=== PATIENT | female | born 1965 | race Caucasian/White ===

== ENCOUNTER 2022-01-07 11:34 | Outpatient (REF) | payer OTHER, SELFPAY ==
[2022-01-07 14:40] LABS: Influenza A PCR NEGATIVE (Negative); Influenza B PCR NEGATIVE (Negative); Resp Syncy Virus RNA Qual PCR NEGATIVE (Negative); SARS COV2 PCR INHOUSE NEGATIVE (Negative)
== END 2022-01-07 11:35 | disposition home or self-care (01) ==
LOC: HO.LNP 11:34
PROVIDERS: Visit Provider Nurse Practitioner Family
DX: Z20.822 Contact with and (suspected) exposure to COVID-19 (principal); R06.02 Shortness of breath
CPT/HCPCS: 0241U

== ENCOUNTER 2022-03-09 09:56 | Outpatient (REF) | payer OTHER, SELFPAY ==
--- NOTE | ~2022-03-09 | XR_ITS ---
EXAMINATION: XR WRIST, LEFT CLINICAL INFORMATION: Left wrist pain with contusion. COMPARISON: None TECHNIQUE: PA, lateral, and oblique views of the left wrist. FINDINGS: The bones and soft tissues are normal. No fracture. Alignment is anatomic with normal joint spaces. No erosions or abnormal soft tissue calcifications. XR/XR wrist LT min 3V IMPRESSION: Unremarkable left wrist.
== END 2022-03-09 09:57 | disposition home or self-care (01) ==
LOC: HO.HMGCX 09:56
PROVIDERS: Visit Provider Internal Medicine
DX: S60.212A Contusion of left wrist, initial encounter (principal)
CPT/HCPCS: 73110

== ENCOUNTER 2022-06-15 10:36 | Outpatient (REF) | payer OTHER, SELFPAY ==
--- NOTE | ~2022-06-15 | XR_ITS ---
EXAMINATION: XR chest 2V CLINICAL INFORMATION: Reason for Exam J44.1 - Chronic obstructive pulmonary disease with (acute) exacerbation COMPARISON: No prior chest x-ray available in our system for comparison at the time of this dictation. TECHNIQUE: XR chest 2V Lungs and Abi: Faint density projecting over the left upper lobe between the posterior left fifth and sixth rib, could be a lung nodule versus summation of vascular shadows. Pleura: Normal. Costophrenic angles are sharp. No pneumothorax. Heart: The heart is normal in size. Mediastinum: The mediastinum is within normal limits.. Bones: Skeletal structures included are normal for patient's age. XR/XR chest 2V IMPRESSION: * Faint density projecting over the left upper lobe could be a lung nodule versus summation of vascular shadows. Consider correlation with follow-up low-dose chest CT. * No radiographic evidence of acute infiltrates or failure. (Referring physician staff is being called, by physician staff assistance, to be alerted of the above critical findings and recommendations.) 06/15/2022 11:50 AM
[2022-06-15 15:36] LABS: Influenza A PCR NEGATIVE (Negative); Influenza B PCR NEGATIVE (Negative); Resp Syncy Virus RNA Qual PCR NEGATIVE (Negative); SARS COV2 PCR INHOUSE NEGATIVE (Negative)
== END 2022-06-15 10:37 | disposition home or self-care (01) ==
LOC: HO.HMGCX 10:36
PROVIDERS: PCP Internal Medicine; Visit Provider Physician Assistant
DX: J44.1 Chronic obstructive pulmonary disease with (acute) exacerbation (principal); Z20.822 Contact with and (suspected) exposure to COVID-19
CPT/HCPCS: 0241U; 71046

== ENCOUNTER 2022-10-09 12:02 | Outpatient (AMB) | payer OTHER, SELFPAY ==
--- NOTE | 2022-10-09 12:15 | MHC.OFFWIV ---
Intake Vital Signs 10/09/22 12:18 Weight 142 lb BP 104/56 L Blood Pressure Location Rt brachial Position Sitting Pulse 75 Pulse Oximetry (%) 96 Oxygen Delivery Method Room Air Intake Visit Reasons: EP Diff Breathing/?COPD Intake Note: Triaged pt in waiting room: Pt complaining of worsening SOB and not feeling like she can get a full breath in. Using her emergency inhaler and nebulizer reporting minimal relief. 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 Able to complete full sentences without difficulty. No wheezing heard during conversation. Pt does smell of cigarette. Lips pink, hands warm and dry. O2 sats during conversation ranged between 95 & 97%. HR regular. Denies fever, denies s/s URI. Patient Tobacco Use Status: Current everyday Tobacco user Allergies buprenorphine [From SUBOXONE] Allergy (Severe, Verified 10/09/22 12:44) ANAPHYLAXIS naloxone [From SUBOXONE] Allergy (Severe, Verified 10/09/22 12:44) ANAPHYLAXIS NSAIDS (Non-Steroidal Anti-Inflamma [Nsaids] Allergy (Unknown, Verified 10/09/22 12:44) RASH, ITCHING Do you need a note to return to daycare/school/sports/work: No HPI EP Diff Breathing/?COPD HPI Details Patient presents for a sick visit. Reporting symptoms of sinus congestion, sore throat and difficulty swallowing. Low-grade fever. No family member is sick. No recent travel. Patient reports symptoms of malaise and fatigue. [facility] Social History Patient Tobacco Use Status: Current everyday Tobacco user Physical Exam Vital Signs: Last Vital Signs Pulse 75 10/09/22 12:18 BP 104/56 L 10/09/22 12:18 Pulse Ox 96 10/09/22 12:18 Oxygen Delivery Method Room Air 10/09/22 12:18 Const General: cooperative and healthy appearing Nutritional Appearance: well nourished Orientation/consciousness: patient oriented x3 Limitations: no limitations HEENT Head: Yes normal to inspection Eyes General: appearance normal, both eyes and all related structures Neck Neck: Yes normal visual inspection Chest Chest palpation & inspection: normal palpation of entire chest wall Resp Other: Scattered wheeze bilaterally Effort & Inspection: normal respiratory effort Neuro General: patient oriented x3 Assessment & Plan Assessment & Plan (1) COPD exacerbation: Code(s): J44.1 - Chronic obstructive pulmonary disease with (acute) exacerbation Plan: X-ray images were personally reviewed by me. No infiltrate seen. Albuterol, antibiotic and prednisone called in. If symptoms do not improve to follow-up here. Orders: Orders XR chest 2V Today R05.9 - Cough, unspecified Medications: New azithromycin (Zithromax) take 500 mg today (day 1), then 250 mg for 4 days (days 2-5) PO 6 tabs 0RF prednisone 60 mg (3 x 20 mg) PO DAILY 9 tabs 0RF albuterol sulfate 90 mcg/actuation (Ventolin HFA) 1 inh inhalation QID PRN 8.5 grams 1RF shortness of breath or wheezing Coding Level of Care Code Est Pt Level 4 (94705) Diagnoses COPD exacerbation J44.1
[2022-10-09 12:18] VITALS: BP 104/56; PULSE 75; O2SAT 96
== END 2022-10-09 13:40 | disposition home or self-care (01) ==
PROVIDERS: PCP Internal Medicine; Visit Provider Internal Medicine
DX: J44.1 Chronic obstructive pulmonary disease with (acute) exacerbation (principal)
CPT/HCPCS: 99214

== ENCOUNTER 2022-10-09 13:13 | Outpatient (REF) | payer OTHER, SELFPAY ==
--- NOTE | ~2022-10-09 | XR_ITS ---
EXAMINATION: XR CHEST CLINICAL INFORMATION: Cough COMPARISON: 06/15/2022 TECHNIQUE: 2 views of the chest were obtained. FINDINGS: No significant abnormality is noted involving the heart, lungs, mediastinum, bony thorax or soft tissues. XR/XR chest 2V IMPRESSION: Unremarkable examination.
== END 2022-10-09 13:14 | disposition home or self-care (01) ==
LOC: HO.HMGCX 13:13
PROVIDERS: PCP Internal Medicine; Visit Provider Internal Medicine
DX: R05.9 Cough, unspecified (principal)
CPT/HCPCS: 71046

== ENCOUNTER 2022-10-29 12:17 | Outpatient (AMB) | payer OTHER, SELFPAY ==
--- NOTE | 2022-10-29 12:31 | AM.OFFWIN_ITS ---
Intake Vital Signs 10/29/22 12:31 10/29/22 12:36 Height 5 ft 3.5 in Weight 141 lb BP 124/80 Blood Pressure Location Lt brachial Position Sitting Pulse 63 Pulse Source Pulse Oximeter Temp 98.9 F Temp Source Oral Pulse Oximetry (%) 96 Oxygen Delivery Method Room Air Intake Visit Reasons: EP, SOB, chest tightness [phone] Intake Note: Patient is here for tight chest pain and shortness of breathe for about 3 days. Patient Tobacco Use Status: Current everyday Tobacco user Allergies buprenorphine [From SUBOXONE] Allergy (Severe, Verified 10/29/22 12:31) ANAPHYLAXIS naloxone [From SUBOXONE] Allergy (Severe, Verified 10/29/22 12:31) ANAPHYLAXIS NSAIDS (Non-Steroidal Anti-Inflamma [Nsaids] Allergy (Unknown, Verified 10/29/22 12:31) RASH, ITCHING HPI HPI Comments History of Present Illness Details The patient presents to urgent care for evaluation of chest pain shortness of breath cough times 2-3 days. Patient has an underlying history of COPD and feels tight and wheezy. She has been using her albuterol nebulizer machine as well as her inhaler but does not use a spacer with the inhaler. No fever chills. [facility] Social History Patient Tobacco Use Status: Current everyday Tobacco user Review of Systems Card Denies rapid heart rate, Denies dyspnea and Denies dyspnea on exertion Resp Denies dyspnea and Denies dyspnea on exertion GI Denies dyspepsia and Denies heartburn Musc Denies arthralgias and Denies muscle cramps Neuro Denies focal weakness and Denies Other visual disturbances Physical Exam Vital Signs: Last Vital Signs Temp 98.9 F 10/29/22 12:36 Pulse 63 10/29/22 12:36 BP 124/80 10/29/22 12:36 Pulse Ox 96 10/29/22 12:36 Oxygen Delivery Method Room Air 10/29/22 12:36 Const General: healthy appearing and no acute distress HEENT Mouth: Normal oral and palatal mucosa present Resp Effort & Inspection: normal respiratory effort, able to speak in complete sentences and other (Faint expiratory wheezes bilaterally) Cardio Rate: regular rate Rhythm: regular rhythm Assessment & Plan Assessment & Plan (1) COPD exacerbation: Comment: EKG in office shows normal sinus rhythm at 70 beats per minute no ST T-wave changes to suggest acute ischemia. Code(s): J44.1 - Chronic obstructive pulmonary disease with (acute) exacerbation Plan Symptoms consistent with COPD exacerbation. Patient was instructed to start using her albuterol inhaler with her spacer but in the meantime using nebulizer every 4-6 hours. Will prescribe prednisone as well. Patient well appearing stable for outpatient management and was instructed to return if symptoms worsening. Coding Level of Care Code Est Pt Level 4 (28100) Diagnoses COPD exacerbation J44.1
[2022-10-29 12:36] VITALS: BP 124/80; PULSE 63; TEMP 37.2; O2SAT 96
== END 2022-10-29 13:19 | disposition home or self-care (01) ==
PROVIDERS: PCP Internal Medicine; Visit Provider Emergency Medicine
DX: J44.1 Chronic obstructive pulmonary disease with (acute) exacerbation (principal)
CPT/HCPCS: 99214

== ENCOUNTER 2023-02-06 09:01 | Outpatient (AMB) | payer OTHER, SELFPAY ==
[2023-02-06 09:06] VITALS: BP 104/78; PULSE 80; TEMP 36.8; O2SAT 95; BMI 24.4
--- NOTE | 2023-02-06 09:06 | AM.OFFWIN_ITS ---
Intake Vital Signs 02/06/23 09:06 Height 5 ft 3.5 in Weight 140 lb BMI 24.4 BP 104/78 Blood Pressure Location Lt brachial Position Sitting Pulse 80 Pulse Source Pulse Oximeter Temp 98.3 F Temp Source Oral Pulse Oximetry (%) 95 Oxygen Delivery Method Room Air Intake Visit Reasons: ESt/sob chest tightness (lobby masked) Intake Note: Pt is here today c/o SOB and chest tightness x4days cough and wheezing Patient Tobacco Use Status: Current everyday Tobacco user Allergies buprenorphine [From SUBOXONE] Allergy (Severe, Verified 10/29/22 12:31) ANAPHYLAXIS naloxone [From SUBOXONE] Allergy (Severe, Verified 10/29/22 12:31) ANAPHYLAXIS NSAIDS (Non-Steroidal Anti-Inflamma [Nsaids] Allergy (Unknown, Verified 10/29/22 12:31) RASH, ITCHING Do you need a note to return to daycare/school/sports/work: No HPI HPI Comments History of Present Illness Details This is a 57 year female with past medical history of COPD, not currently oxygen dependent and managed by Dr. Ivey presenting for evaluation of shortness of breath, cough and wheezing that she has had for the past 4 days. Patient also describes a tightness in her chest when she coughs. Patient has been using her nebulizer 4 times daily and her albuterol with imcreased frequency. Patient denies having any fevers, chills, headache, ear pain, sore throat, orthopnea, nausea, vomiting, abdominal pain or back pain. Additionally, patient denies any recent sick contacts. [facility] Social History Patient Tobacco Use Status: Current everyday Tobacco user Review of Systems Const All systems reviewed & are unremarkable except as noted in HPI and below Denies chills, Denies fever(s), Reports malaise and Denies weakness Eyes Reports no additional complaints ENT Reports no additional complaints, Denies otalgia and Denies sore throat Card Reports chest pain ( tightness with cough) Resp Reports no additional complaints, Reports cough, Denies hemoptysis and Reports wheezing Neuro Denies weakness Psych Reports no additional complaints Claus/Lymph Reports no additional complaints Aller/Immun Reports wheezing Physical Exam Vital Signs: Last Vital Signs Temp 98.3 F 02/06/23 09:06 Pulse 80 02/06/23 09:06 BP 104/78 02/06/23 09:06 Pulse Ox 95 02/06/23 09:06 Oxygen Delivery Method Room Air 02/06/23 09:06 BMI result Body Mass Index 24.4 Afebrile, POX 95% on room air. Const General: cooperative and no acute distress; No ill appearing or lethargic Nutritional Appearance: average body habitus Orientation/consciousness: patient oriented x3 and No lethargic Limitations: no limitations HEENT Head: Yes normal to inspection Ears: hearing grossly normal bilaterally, external ears normal, TM's normal bilaterally and EAC's normal General nose exam: Normal external nose present Face and sinus: Yes normal facial exam and No sinus tenderness Mouth: Normal oral and palatal mucosa present Throat: Yes posterior oropharynx normal and No postnasal drainage Eyes Eyelids: Yes eyelids normal Conjunctivae: conjunctivae normal Sclerae: sclerae normal Corneas: corneas normal Pupils: Equal, round and reactive pupils present EOM: EOMs intact bilaterally Neck Lymphatic: no lymphadenopathy noted Resp Effort & Inspection: normal respiratory effort, normal respiratory pattern, no audible wheezes, no cough, respiratory effort not decreased, no respiratory distress and not tachypneic Auscultation: wheezes lower bilaterally and diminished lung sounds bilateral Cardio Rate: regular rate Rhythm: regular rhythm Skin General skin exam: no rashes or lesions noted Neuro General: patient oriented x3 Cranial nerves: Yes Equal, round and reactive pupils present Psych Appearance: grossly normal Mental Status: mental status grossly normal Insight: Good insight present (Psych) Judgement: Good judgement present (Psych) Results Reviewed Results Reviewed: EKG 74 sinus rhythm with PVCs Assessment & Plan Assessment & Plan (1) Upper respiratory infection: Comment: Patient's history coupled with her examination is consistent with an upper respiratory infection which has exacerbated her COPD. Patient is afebrile and in no acute distress. EKG reveals sinus rhythm with no ischemic changes. Code(s): J06.9 - Acute upper respiratory infection, unspecified Plan: Prednisone taper as prescribed and the patient will continue to use her nebulizer and albuterol inhaler as needed with the goal of reduced use over the next 5-7 days. Patient will follow-up with her primary care physician or pul fire eater in 7-10 days if her symptoms are not improving. Orders: Orders AMB EKG-In Office Today R06.02 - Shortness of breath Medications: New prednisone 20 mg orally 60mg x 3 days, 40mg x 3 days, 20mg x 3 days; 18 tabs 0RF Coding Level of Care Code Est Pt Level 4 (12555) Diagnoses Upper respiratory infection J06.9 Time Spent (min) 25
== END 2023-02-06 09:50 | disposition home or self-care (01) ==
PROVIDERS: PCP Internal Medicine; Visit Provider Physician Assistant
DX: J06.9 Acute upper respiratory infection, unspecified (principal)
CPT/HCPCS: 99214

== ENCOUNTER 2023-04-29 10:06 | Outpatient (AMB) | payer OTHER, SELFPAY ==
--- NOTE | 2023-04-29 10:12 | AM.OFFWIN_ITS ---
Intake Vital Signs 04/29/23 10:13 Height 5 ft 3.5 in BP 140/88 H Blood Pressure Location Lt brachial Position Sitting Pulse 81 Pulse Source Pulse Oximeter Temp 98.6 F Temp Source Oral Pulse Oximetry (%) 95 Oxygen Delivery Method Room Air Intake Visit Reasons: EP SOB ~ COPD Intake Note: Pt says she has COPD and is having SOB and chest tightness and she is coughing and she feels like she is choking on her fluids pt says this has been the last 3 days Patient Tobacco Use Status: Current everyday Tobacco user Allergies buprenorphine [From SUBOXONE] Allergy (Severe, Verified 04/29/23 10:15) ANAPHYLAXIS naloxone [From SUBOXONE] Allergy (Severe, Verified 04/29/23 10:15) ANAPHYLAXIS NSAIDS (Non-Steroidal Anti-Inflamma [Nsaids] Allergy (Unknown, Verified 04/29/23 10:15) RASH, ITCHING HPI HPI Comments History of Present Illness Details 57-year-old female with a past medical h istory of COPD presents today complaining of congestion increasing shortness of breath. [facility] Social History Patient Tobacco Use Status: Current everyday Tobacco user Review of Systems Const Reports no additional complaints Eyes Reports no additional complaints ENT Reports nasal congestion Card Reports dyspnea Resp Reports cough and Reports dyspnea GI Reports no additional complaints Physical Exam Const General: ill appearing HEENT Head: Yes normal to inspection, Yes normocephalic and Yes atraumatic Ears: hearing grossly normal bilaterally, external ears normal, TM's normal bilaterally, TM normal on the right, TM normal on the left and EAC's normal General nose exam: Normal external nose present Face and sinus: Yes normal facial exam Throat: Yes posterior oropharynx normal Eyes General: appearance normal, both eyes and all related structures Resp Effort & Inspection: normal respiratory effort Auscultation: wheezes scattered wheezes and left upper Cardio Rate: regular rate Rhythm: regular rhythm Heart sounds: S1 normal heart sound present and S2 normal heart sound present Results Reviewed Results Reviewed: Discuss the results were chest x-ray today that were grossly unremarkable. I will call her after the reading of the radiologist. Assessment & Plan Assessment & Plan (1) Upper respiratory infection: Code(s): J06.9 - Acute upper respiratory infection, unspecified Plan: The patient will be put on antibiotic for asthmatic bronchitis and prednisone Dosepak. She is aware that she comes increasing short of to go to the emergency department. (2) Shortness of breath: Code(s): R06.02 - Shortness of breath (3) Asthmatic bronchitis: Code(s): J45.909 - Unspecified asthma, uncomplicated Plan: See plan Plan See plan Orders: Orders XR chest 2V Today J06.9 - Acute upper respiratory infection, unspecified Medications: New prednisone prednisone 5 mg: take 8 tablets (40 mg) on Day 1; 7 tablets (35 mg) on Day 2; then decrease by 1 tablet every day until finished PO 21 ea 0RF doxycycline hyclate 100 mg PO BID 7 days 14 caps 0RF Coding Level of Care Code Est Pt Level 4 (93900) Diagnoses Upper respiratory infection J06.9 Shortness of breath R06.02 Asthmatic bronchitis J45.909
[2023-04-29 10:13] VITALS: BP 140/88; PULSE 81; TEMP 37; O2SAT 95
== END 2023-04-29 11:03 | disposition home or self-care (01) ==
PROVIDERS: PCP Internal Medicine; Visit Provider Physician Assistant Medical
DX: J06.9 Acute upper respiratory infection, unspecified (principal); R06.02 Shortness of breath; J45.909 Unspecified asthma, uncomplicated
CPT/HCPCS: 99214

== ENCOUNTER 2023-04-29 10:36 | Outpatient (REF) | payer OTHER, SELFPAY ==
--- NOTE | ~2023-04-29 | XR_ITS ---
EXAMINATION: XR CHEST CLINICAL INFORMATION: Acute upper respiratory infection COMPARISON: 10/09/2022 TECHNIQUE: 2 views of the chest were obtained. FINDINGS: No significant abnormality is noted involving the heart, lungs, mediastinum, bony thorax or soft tissues. Surgical clip is noted in the right upper quadrant. XR/XR chest 2V IMPRESSION: Unremarkable examination.
== END 2023-04-29 10:37 | disposition home or self-care (01) ==
LOC: HO.HMGCX 10:36
PROVIDERS: PCP Internal Medicine; Visit Provider Physician Assistant Medical
DX: J06.9 Acute upper respiratory infection, unspecified (principal)
CPT/HCPCS: 71046

== ENCOUNTER 2023-07-19 10:27 | Outpatient (AMB) | payer OTHER, SELFPAY ==
--- OUTSIDE RECORDS SUMMARY | 2023-07-19 10:28 | XMS_ITS | Continuity of Care Document ---
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 Name Role Phone Silverio PRECIADO, Eric Ellis Primary Care Physician [place] [facility] [place]): [place]23 - 07/04/[address] [address]- Discharge Disposition: A-D/C Home Attending Physician: January Fairchild MD Admitting Physician: Victor Manuel Limon MD Referring Physician: Not on Staff, Referring MD Allergies, Adverse Reactions, Alerts Substance Reaction Severity Status Motrin Hives Active lamoTRIgine 1 Persistent Moderate Active 1Rash Immunizations Given and Recorded Vaccine Date Status Refusal Reason tetanus/diphtheria/pertussis, acel(Tdap) 01/13/14 Given influenza virus vaccine, inactivated 1 11/25/12 Gi lilia influenza virus vaccine, inactivated 2 10/17/11 Gi lilia Tet/Diphth/Acel, Pertussis (oldterm) 06/02/11 Give n Pneumococcal Vacc (oldterm) 06/02/11 Given 1Result Comment: [11/25/2012] ORDERRED BY ARI OLSON NP 2Admin Note: Given at work Medications azithromycin 500 mg oral tablet TAKE ONE TABLET BY MOUTH EVERY WEDNESDAY, WEDNESDAY AND WEDNESDAY OF EACH WEEK Start Date: 07/02/23 Status: Ordered colestipol 1 gm oral tablet TAKE 1 TABLET BY MOUTH TWICE A DAY WITH MEALS Start Date: 07/02/23 Status: Ordered EpiPen 2-Mitch 0.3 mg injectable kit = 0.3 mg, Intramuscular, Once, # 1 kit, 0 Refills, Soft Stop, 05/29/20 18:38:00 EDT, [facility], Partial fill upon patient request if the prescription is for a schedule II opioid drug.,160, cm, 05/29/20 16:36:00 EDT, Height, 63.7, kg, 0... Start Date: 05/29/20 Status: Ordered latanoprost 0.005% ophthalmic solution INSTILL 1 DROP INTO LEFT EYE EVERY NIGHT AT BEDTIME Start Date: 07/02/23 Status: Ordered omeprazole 20 mg oral enteric coated capsule See Instructions, TAKE 1 CAPSULE BY MOUTH DAILY FOR 360 DAYS., # 30 tablet, 0 Refills, Maintenance,07/03/23 8:37:00 EDT Start Date: 07/03/23 Status: Ordered ondansetron 4 mg oral tablet 1 tablet = 4 mg, By Mouth, Every 8 hours, PRN Nausea & Vomiting, # 10 tablet, 0 Refills, Maintenance, 07/04/23 9:32:00 EDT, Tablet, [facility], Partial fill upon patient request if the prescription is for a schedule II opioid drug., 162.... Start Date: 07/04/23 Status: Ordered oxyCODONE 5 mg oral tablet 5 mg, 1, tablet, By Mouth, Every 6 hours, PRN, for 3 days, # 12 tablet, Refills 0, Tot. Refills 0, Acute 07/07/23 9:32:00 EDT, Pain , Severe, 07/04/23 9:32:00 EDT, Route to Pharmacy Electronically, [facility], Partial fill upon patient r... Start Date: 07/04/23 Stop Date: 07/07/23 Status: Ordered oxyCODONE 5 mg oral tablet 10 mg, Tablet, By Mouth, Every 6 hours, PRN for Pain , Moderate, Routine, 07/02/23 16:07:00 EDT Start Date: 07/02/23 Stop Date: 07/04/23 Status: Discontinued ProAir HFA 90 mcg/inh inhalation aerosol with adapter 2, puffs, Inhalation, Every 6 hours, PRN, # 8.5 Gm, Refills 0, Maintenance, 07/16/16 23:35:52, Aerosol Start Date: 07/16/16 Status: Ordered Roflumilast 500 mcg oral tablet TAKE 1 TABLET BY MOUTH EVERY DAY Start Date: 07/02/23 Status: Ordered sertraline 100 mg oral tablet TAKE 2 TABLETS BY MOUTH EVERY DAY Start Date: 07/02/23 Status: Ordered traZODone 100 mg oral tablet TAKE 1 TABLET BY MOUTH EVERYDAY AT BEDTIME Start Date: 07/02/23 Status: Ordered Trelegy Ellipta inhalation powder INHALE 1 PUFF BY INHALATION ROUTE EVERY DAY AT THE SAME TIME EACH DAY Start Date: 07/02/23 Status: Ordered Vitamin B-12 1000 mcg oral tablet 1,000 mcg, 1, tablet, By Mouth, Daily, # 30 tablet, Refills 0, Maintenance, 07/16/16 23:37:35 Start Date: 07/16/16 Status: Ordered Problem List Condition Confirmation Course Effective Dates Status Health St atus Informant Abdominal pain Confirmed Active Eczema Confirmed 06/02/11 Active Asthma Confirmed Active History of substance abuse Confirmed Active Tobacco abuse Confirmed Active Results Radiology Reports * Exam Date Time Procedure Performing Provider Status 07/03/23 11:43 AM ERCP Both Ducts Danika Bajwa (Verified) Notes: (ERCP Both Ducts) Reason For Exam: CHOLEDOCHOLITHIASIS RESULT: ERCP Both Ducts ERCP Both Ducts INDICATION: Reason: CHOLEDOCHOLITHIASIS COMPARISONS: None TECHNIQUE: Fluoroscopy support was provided. There was no radiologist in attendance. FLUOROSCOPY TIME: 41.4 seconds EXPOSURE: 3.5087 Total dose area product (Gycm2) TECHNOLOGIST TIME: Not recorded FINDINGS: 6 images were submitted. Please refer to operative note for full details. IMPRESSION: See above. WSN: [id number] Ordering Physician: Charmaine Hayes Dictated By: Uziel Cannon MD Dictated Date/Time: 07/03/23 4:10 pm Reviewed By: Uziel Cannon MD Signed By: Uziel Cannon MD Signed Date/Time: 07/03/23 4:10 pm Transcribed By: JUAN RAMON Transcribed Date/Time: 07/03/23 4:09 pm * Exam Date Time Procedure Performing Provider Status 07/02/23 1:26 AM Chest 2 Views Frontal and Lat Mark Anthony Sexton (Verified) Notes: (Chest 2 Views Frontal and Lat) Reason For Exam: Shortness of Breath RESULT: Chest 2 Views Frontal and Lat Chest 2 Views Frontal and Lat Hx of Present Illness: Pt reports chest pain that started out as indigestion. She reports mid sternal chest pain that radiates to her back bilat, but more pain on the R side. Pt reports couple episodes of vomiting.; Reason: Shortness of Breath; Clinical Question(s): Pneumonia COMPARISON: None. FINDINGS: Single AP upright and lateral views labeled 1:26 AM. LUNGS AND PLEURA: Clear lungs. Normal pulmonary vascularity. No pleural effusion. No pneumothorax. HEART, MEDIASTINUM AND SARI: Heart is normal in size. Normal mediastinal and hilar contour. BONES AND SOFT TISSUES: No acute abnormality. IMPRESSION: No acute abnormality. WSN: [id number] Ordering Physician: Elizabeth Rosen Dictated By: Kobi Graham MD Dictated Date/Time: 07/02/23 7:44 am Reviewed By: Kobi Graham MD Signed By: Kobi Graham MD Signed Date/Time: 07/02/23 7:44 am Transcribed By: JUAN RAMON Transcribed Date/Time: 07/02/23 7:43 am * Exam Date Time Procedure Performing Provider Status 07/02/23 1:[address] Abd/Pelvis W/ IV Contrast Only Elizabeth Thomas; Auth (Verified) Notes: (CT Abd/Pelvis W/ IV Contrast Only) Reason For Exam: LLQ abdominal pain;Other: RESULT: CT Abd/Pelvis W/ IV Contrast Only CT Abd/Pelvis W/ IV Contrast Only Hx of Present Illness: Pt reports chest pain that started out as indigestion. She reports mid sternal chest pain that radiates to her back bilat, but more pain on the R side. Pt report couple episdoes of vomiting; Reason: LLQ abdominal pain TECHNIQUE: Spiral CT through the abdomen and pelvis with IV contrast formatted in 3 planes. 100 cc of Omnipaque 300 was administered intravenously. This study was performed without oral contrast. Weight-based protocol using automatic tube modulation was used to optimize exposure parameters. CTDIvol Body: 13.00 mGy, DLP Body: 682 mGy*cm. COMPARISON: Multiple priors, most recent CT abdomen and pelvis 01/19/2016 FINDINGS: Draw Frame Operator View Findings, Lines and Tubes: None. Visualized Chest: Mild bibasilar atelectasis. No consolidation. No pleural effusion. The heart is normal in size. No pericardial effusion. Diaphragm: Normal. Liver: Normal. Gallbladder: Absent consistent with prior cholecystectomy. Bile ducts: Mild prominence of the intrahepatic bile ducts and common bile duct measuring up to 0.8cm (series 202: Image 53), new from 2016. 0.2 cm punctate hyperdensity is seen in the expected vicinity of the distal common bile duct/sphincter of Oddi, possibly representing obstructing stone (series 202: Image 56). Spleen: Normal. Pancreas: Normal. Adrenal glands: Normal. Kidneys and ureters: No hydronephrosis, stones, or suspicious masses. Bladder: Underdistended, limiting evaluation. Otherwise unremarkable. Reproductive organs: Status post hysterectomy. Otherwise unremarkable. Stomach, small bowel, and large bowel: Unremarkable stomach, small and large bowel. No evidence of bowel obstruction or acute inflammation. Appendix: Not seen, but no evidence of appendicitis. Peritoneum and retroperitoneum: No ascites or pneumoperitoneum. No omental or mesenteric lesions. Lymph nodes: No enlarged lymph nodes. Blood vessels: Moderate atherosclerotic vascular calcification. No aortic aneurysm. No evidence of venous thrombosis. Abdominal and pelvic wall: Unremarkable. Bones: No acute abnormality. Dystrophic calcifications posterior to the left proximal femur. Degenerative changes of the spine. IMPRESSION: Mild prominence of the intrahepatic bile ducts and common bile ducts measuring up to 0.8 cm. 0.2 cmhyperdense focus suspicious for obstructing stone in the region of the distal common bile duct/sphincter of Oddi. If no corresponding clinical symptoms or abnormal LFTs, the biliary dilation could also be secondary to postcholecystectomy state. I have personally reviewed the images and I agree with this report. WSN: [id number] Ordering Physician: Elizabeth Rosen Dictated By: Leticia Louis MD Dictated Date/Time: 07/02/23 7:41 am Reviewed By: Shruti Wilson MD Signed By: Shruti Wilson MD Signed Date/Time: 07/02/23 7:46 am Transcribed By: JUAN RAMON Transcribed Date/Time: 07/02/23 3:45 am Vital Signs Most recent to oldest [Reference Range]: 1 2 3 Height 162.56 cm (07/03/23 9:52 AM) 162.56 cm (07/03/23 4:59 AM) 162.56 cm (07/02/23 8:50 PM) Oxygen Saturation [94-100 %] 95 % (07/04/23 7:00 AM) 96 % (07/04/23 3:00 AM) 93 % *L* (07/03/23 8:00 PM) Pulse Rate [55-90 bpm] 72 bpm (07/04/23 7:00 AM) 74 bpm (07/04/23 3:00 AM) 60 bpm (07/03/23 8:00 PM) Blood Pressure [90-138/55-84 mm Hg] 136/61mm Hg (07/04/23 7:00 AM) 141/63mm Hg *H* (07/04/23 3:00 AM) 139/62mm Hg *H* (07/03/23 8:00 PM) Respiratory Rate [16-30 br/min] 18 br/min (07/04/23 11:39 AM) 18 br/min (07/04/23 10:21 AM) 16 br/min (07/04/23 7:00 AM) Temperature [96.8-100.4 DegF] 98.7 DegF (07/04/23 7:00 AM) 99.1 DegF (07/04/23 3:00 AM) 98.7 DegF (07/03/23 8:00 PM) Liters per Minute 2 L/min (07/03/23 12:30 PM) 4 L/min (07/03/23 11:45 AM) 6 L/min (07/03/23 11:30 AM) Mode of Delivery (Oxygen) Room air (07/04/23 7:00 AM) Room air (07/04/23 3:00 AM) Room air (07/03/23 8:00 PM) Blood pressure sites Arm, left (07/04/23 7:00 AM) Arm, left (07/04/23 3:00 AM) Arm, right (07/03/23 8:00 PM) Temperature Route Oral (07/04/23 7:00 AM) Oral (07/04/23 3:00 AM) Oral (07/03/23 8:00 PM) Social History Social History Type Response Smoking Status Current every day cuate harmon entered on: 12/29/12 Sex RF Guidance for endoscopy of Biliary ducts and Pancreatic duct-- W contrast retrograde * Event Display: GG ERCP Please click on pdf link to open report Consult note * Anisha Cohn DO: PERFORM, MODIFY Event Display: Consult Authored Date: [id number] Patient: ??NORMAN GONZALEZ ? Age:??57 Years?Sex:??Female?:??1965?? Referrring Provider Not on Staff, Referring MD Chief Complaint Coming from home, chest pain half an hour ago radiating to lower back. Started out as abd discomfort and indigestion. Vomitted multiple times per EMS. Pain subsdied from10 to 7 after fentanyl. Hx of panreatitis and COPD Pt reports RUQ pain. Pt denies NUNU Reason for Consultation Choledocholithiasis History of Present Illness This is a 57 yo male with a past medical history significant for Asthma, ccy, ??who presents with aone day history of epigastric??abdominal pain. The pain started after drinking some soda. It was dull in nature and lasted >40 minutes. It was constant, and she is still experiencing the pain. Thepain radiated to the chest and back. She also had 2-3 episodes of nbnb emesis. She states that she h as been getting a similar pain for the past few months which was usually postprandial, and worse with fatty foods. She denies fevers, chills, prior colonoscopy. She did have an EGD >10 years ago for unknown reason. ?? Notably, pt does have a history of pancreatitis and cholecystectomy. ?? On admission, VSS, AST 70, ALT 39, TB <0.2, AP 76. Lipase 87. CT AP showed mild prominence ofthe intrahepatic bile ducts and common bile ducts measuring up to 0.8 cm. 0.2 cm hyperdense focus suspicious for obstructing stone in the region of the distal common bile duct/sphincter of Oddi. If no corresponding clinical symptoms or abnormal LFTs, the biliary dilation could also be secondary to postcholecystectomy state.??Pancreas normal. ?? Review of Systems Per HPI Physical Exam Vitals & Measurements T:??97.4?F?? TMIN:??97.4?F?? TMAX:??99.0?F?? HR:??67??(Peripheral)?? RR:??18?? BP:??131/67?? SpO2:??97%?? General: No acute distress Heart: RRR no MRG Lung: CTA b/l no wheezes or crackles Abdomen: RUQ and epigastric tenderness, non distended Extremities: No pitting edema ?? Assessment/Plan Pt with evidence of stone in the common bile duct confirming choledocholithiasis. Given evidence ofstone, reasonable to pursue ERCP without further imaging. R factor 1.5 indicating cholestatic picture. ?? Recommendations: -??Plan for ERCP 07/02, NPO at midnight ?? Pt seen and discussed with Gato Danielson and ??Freddy ?? Problem List/Past Medical History Ongoing Asthma Eczema Feared complaint without diagnosis History of substance abuse Tobacco abuse Procedure/Surgical History ???KYLIE BSO Medications Inpatient Acetaminophen Tablet, 650 mg, By Mouth, Every 4 hours, PRN Dilaudid Inj, 2 mg= 1 mL, IV Push Slowly, Every 15 minutes, PRN Dilaudid Inj, 1 mg= 1 mL, IV Push Slowly, Every 4 hours, PRN Docusate Sodium Capsule, 100 mg= 1 capsule, By Mouth, 2 times a day, PRN LR 1,000 mL, 1000 mL, IV Infusion Melatonin Tablet, 3 mg, By Mouth, Daily at bedtime, PRN MiraLax Powder, 17 Gm= 1 pack/packet, By Mouth, Daily, PRN NaCL 0.9% Flush, 3 mL, IV Push, Every 8 hours NaCL 0.9% Flush, 3 mL, IV Push, Every 8 hours, PRN Ondansetron Inj, 4 mg, IV Push Slowly, Every 30 minutes, PRN Ondansetron Inj, 4 mg, IV Push, Every 4 hours, PRN Robitussin DM Liquid, 10 mL, By Mouth, Every 4 hours, PRN Senna Tablet, 8.6 mg= 1 tablet, By Mouth, 2 times a day, PRN Simethicone Tablet, 80 mg, Chew, 3 times a day, PRN Zofran Inj, 4 mg, IV Push, Once, PRN Home albuterol CFC free 90 mcg/inh inhalation aerosol, 2 puffs, Inhalation, 4 times a day, PRN Centrum Silver Ultra Women's oral tablet, 1 tablet, By Mouth, Daily EpiPen 2-Mitch 0.3 mg injectable kit, 0.3 mg, Intramuscular, Once potassium gluconate 550 mg oral tablet, 550 mg= 1 tablet, By Mouth, Daily ProAir HFA 90 mcg/inh inhalation aerosol with adapter, 2 puffs, Inhalation, Every 6 hours, PRN SEROquel 50 mg oral tablet, 50 mg= 1 tablet, By Mouth, Daily Vitamin B-12 1000 mcg oral tablet, 1000 mcg= 1 tablet, By Mouth, Daily Vitamin B1 100 mg oral tablet, 100 mg= 1 tablet, By Mouth, Daily Vitamin B6 100 mg oral tablet, See Instructions Allergies lamoTRIgine Motrin??(Hives) Social History Tobacco Use: Current every day smoker. Family History Alcoholism: Negative: Mother, Father, Sister, Sister, Brother and Other. CAD - Coronary artery disease: Negative: Mother, Father, Sister, Sister, Brother and Other. Cancer of breast: Other.Negative: Mother, Father, Sister, Sister and Brother. Cancer of colon: Negative: Mother, Father, Sister, Sister, Brother and Other. Cancer of prostate: Negative: Mother, Father, Sister, Sister, Brother and Other. Diabetes mellitus type II: Mother, Father, Sister and Other.Negative: Sister and Brother. Hyperlipidemia: Negative: Mother, Father, Sister, Sister, Brother and Other. Hypertension: Father.Negative: Mother, Sister, Sister, Brother and Other. RA - Rheumatoid arthritis: Negative: Mother, Father, Sister, Sister, Brother and Other. Stroke: Father.Negative: Mother, Sister, Sister, Brother and Other. Thyroid disease: Negative: Mother, Father, Sister, Sister, Brother and Other. * Charmaine Hayes DO Tri: PERFORM Event Display: Consult Authored Date: GI Attending Note: ?? The patient was seen, examined and discussed with the??fellow. I have personally reviewed all of the labs and imaging. Additionally, I personally created the assessment and plan of care on rounds anddelineated in the above note. Additional comments as below: ?? Patient was seen at bedside and was??reporting a significant amount of??abdominal pain.?? She also reportedly was feeling cold and having chills at bedside with pinpoint pupils.?? Reported nausea??and spitting up.?? Her symptoms do not correlate??with the findings on the CT scan.?? A calcified??distal CBD stone??is very small??and not causing obstructive jaundice as she does have mildly abnormal LFTs.?? Clinical presentation??and abdominal pain??seems to be consistent with more of the withdrawal process.?? Tentatively, she is on our schedule for ERCP tomorrow for stone extraction. ??Risk benefits alternatives were discussed with patient agrees to proceed.?N.p.o. after midnight. ?? Please call with questions or concerns. Thank you for allowing me to participate in this patient's care. ?? Charmaine Hayes, DO [facility] [address] [place] [address], [address] [place] [address] History and physical note * Devorah PRECIADO, January: PERFORM Event Display: History and Physical Hospital Authored Date: Patient: ??NORMAN GONZALEZ ? Age:??57 Years?Sex:??Female?:??1965?? Chief Complaint/Reason for Consultation Abdominal pain History of Present Illness 57-year-old female with past medical history of COPD and asthma, history of bipolar disorder and alcohol use in the past presented to ED with complaint of abdominal pain ?? Patient told me that abdominal pain started last evening, sudden onset, severe, 10/10, associate with nausea and vomiting with no blood in the vomitus.?? Radiating to back and to the chest.?? No change in bowel habits.?? Cramping in nature ?? Patient denies any shortness of breath cough or wheezing.?? No change in bowel habits.?? No dysuria or hematuria.?? No numbness, tingling or focal weakness Review of Systems ROS: All systems reviewed and negative except as in HPI ? Past medical history: History of COPD/asthma,??history of cholecystectomy,??history of depression,??history of GERD ?? Family history:??Noncontributory for gallstone ?? Social history: Positive for smoking. ??Patient is told me that she is not drinking alcohol. ??Denies any drug abuse Objective Vital Signs?? Temperature: 97.4 DegF (07/02/23 07:28:00) Temperature Route: Oral (07/02/23 07:28:00) Pulse Rate: 67 bpm (07/02/23 07:28:00) Respiratory Rate: 20 br/min (07/02/23 11:53:00) Systolic Blood Pressure: 105 mm Hg (07/02/23 11:26:00) Diastolic Blood Pressure: 64 mm Hg (07/02/23 11:26:00) Blood pressure sites: Arm, right (07/02/23 11:26:00) Mean Arterial Pressure: 88 mm Hg (07/02/23 07:28:00) Pulse Pressure: 64 mm Hg (07/02/23 07:28:00) Oxygen Saturation: 97 % (07/02/23 07:27:00) Liters per Minute: 2 L/min (07/02/23 06:42:00) Mode of Delivery (Oxygen): Nasal cannula (07/02/23 06:42:00) Early Warning Score: 2 (07/02/23 11:53:56) ? 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 S1, S2, No gallop, murmur or rub Resp: b/l??decreased air entry, no wheezing or rhales, CTA b/l GI: Soft, epigastric tenderness without rebound, guarding or rigidity, ND, BS +ve EXT: no pedal edema Skin: no rash Neck: supple,?? Eyes: PERRLA, EOMI?? Head: atraumatic, normocephalic ENMT: moist mucus membranes, nares patent with no discharge Musculoskeletal: no joint tenderness, swelling or limitation of movement ?? Assessment/Plan Assessment:??57-year-old female here with abdominal pain??and admitted??with??CBD stone ?? Bile duct stone (K80.50):?? Abnormal LFTs ?? Patient presented with complaint of abdominal pain. CT abdomen as below Mild prominence of the intrahepatic bile ducts and common bile ducts measuring up to 0.8 cm. 0.2 cmhyperdense focus suspicious for obstructing stone in the region of the distal common bile duct/sphincter of Oddi. If no corresponding clinical symptoms or abnormal LFTs, the biliary dilation could also be secondary to postcholecystectomy state.?? History of cholecystectomy Lipase 87 UA with RBC but no UTI Troponin negative Pulmonary embolism unlikely Abdominal examination is benign EKG without any acute change I have discussed with gastroenterology who recommended to start patient on clear liquid diet.?? GI recommended n.p.o. after midnight for ERCP tomorrow Symptomatic management Serial abdominal examination Trend LFTs IV fluids ?? Microscopic hematuria: PCP follow-up ?? History of??asthma/COPD without exacerbation:??Continue patient on azithromycin which she takes every Wednesday and Wednesday.?? DuoNebs, Roflumilast??and Breo Ellipta ?? Depression/anxiety: Sertraline and trazodone ?? GERD: PPI ?? History of cholecystectomy: Cholestyramine ?? Anemia: f/u CBC ?? DVT prophylaxis: SCD ?? CODE STATUS: Full ?? Discussed with patient ?? Discharge Planning:? Histories Allergies Allergies ?(Active and Proposed Allergies Only) lamoTRIgine? (Severity: Persistent Moderate, Onset: Unknown) ?Comments: Rash Motrin? (Severity: Unknown severity, Onset: Unknown) ?Reactions: Hives ? Medications Home Medications Albuterol (ProAir HFA 90 mcg/inh inhalation aerosol with adapter)?2?puff(s)?Inhalation?Every 6 hours?as needed?for wheezing Azithromycin (azithromycin 500 mg oral tablet)?TAKE ONE TABLET BY MOUTH EVERY WEDNESDAY, WEDNESDAY AND WEDNESDAY OF EACH WEEK Colestipol (colestipol 1 gm oral tablet)?TAKE 1 TABLET BY MOUTH TWICE A DAY WITH MEALS Cyanocobalamin (Vitamin B-12 1000 mcg oral tablet)?1,000?Microgram?1?tablet?By Mouth?Daily EPINEPHrine (EpiPen 2-Mitch 0.3 mg injectable kit)?0.3?Milligram?Intramuscular?Once fluticasone/umeclidinium/vilanterol (Trelegy Ellipta inhalation powder)?INHALE 1 PUFF BY INHALATION ROUTE EVERY DAY AT THE SAME TIME EACH DAY Latanoprost Ophthalmic (latanoprost 0.005% ophthalmic solution)?INSTILL 1 DROP INTO LEFT EYE EVERY NIGHT AT BEDTIME Omeprazole (omeprazole 20 mg oral enteric coated capsule)?See Instructions?TAKE 1 CAPSULE BY MOUTH DAILY FOR 360 DAYS. roflumilast (Roflumilast 500 mcg oral tablet)?TAKE 1 TABLET BY MOUTH EVERY DAY Sertraline (sertraline 100 mg oral tablet)?TAKE 2 TABLETS BY MOUTH EVERY DAY Trazodone (traZODone 100 mg oral tablet)?TAKE 1 TABLET BY MOUTH EVERYDAY AT BEDTIME ?? Past medical history: History of COPD/asthma,??history of cholecystectomy,??history of depression,??history of GERD ?? Family history:??Noncontributory for gallstone ?? Social history: Positive for smoking. ??Patient is told me that she is not drinking alcohol. ??Denies any drug abuse Results ? CBC, CBC w/Diff?? CBC?? Differential?? WBC: 10.6 k/mm3 () Abs. Neut:??7.1 k/mm3??High () RBC:??3.51 m/mm3??Low () Abs. Lymph: 2.4 k/mm3 () Hct:??33.5 %??Low () Abs. Davidson: 0.8 k/mm3 () RDW-SD:??47 femtoliters??High () Abs. Eo: 0.3 k/mm3 () Nucleated RBC (Automated): 0 #/100 WBC'S () Abs. Baso: 0.1 k/mm3 () Abs. NRBC: 0 k/mm3 () Neut %: 66.9 % () ?? Lymph %: 22.4 % () ?? Davidson %: 7.3 % () ?? Eos %: 2.6 % () ?? Baso %: 0.5 % () ?? Imm Gran: 0.3 % () ?? Abs. Imm Gran: 0 k/mm3 () ? BMP, Mg, and Phos Anion Gap: 10 () Bicarbonate Level: 24 mmol/L () BUN: 14 mg/dL () Calcium: 8.6 mg/dL () Chloride: 104 mmol/L () Creatinine-Blood: 0.8 mg/dL () Estimated GFR Creatinine: 86 ML/MIN/1.73 M2 () Glucose Level:??109 mg/dL??High () Magnesium: 1.8 mg/dL () Potassium: 3.6 mmol/L () Sodium: 138 mmol/L () ?? Coagulation Profile?? No qualifying data available. ?? LFT Albumin: 3.6 Gm/dL () Alkaline Phosphatase: 76 units/L () ALT (SGPT):??39 units/L??High () AST (SGOT):??70 units/L??High () Bilirubin, Total: <0.2 () ?? Urinalysis Albumin, Urine: 1+ Abnormal (04:31) Appear/Color, Urine: YELLOW (04:31) Bacteria: SLIGHT Abnormal (04:31) Bilirubin, Urine: NEGATIVE (04:31) Glucose, Urine: TRACE Abnormal (04:31) Hemoglobin, Urine: 1+ Abnormal (04:31) Hold Urine Culture: Testing available 48 hours from time of collection. (04:31) Ketones, Urine: NEGATIVE (04:31) Leukocyte, Urine: NEGATIVE (04:31) Mucus: SLIGHT (04:31) Nitrite, Urine: NEGATIVE (04:31) pH, Urine: 6.5 (04:31) RBC's, Urine:??10 /HPF??High (04:31) Specific Morrison, Urine:??>1.050??High (04:31) Squamous Epith: 4 /HPF (04:31) Urobilinogen: NORMAL (04:31) WBC's, Urine: 4 /HPF (04:31) ?? Microbiology ?? COVID-19 (Novel Coronavirus), Rapid PCR?? Completed?? Source: Nasal Body Site: Nose Collected Dt/Tm: 07/02/2023 01:01 Last Updated Dt/Tm: 07/02/2023 05:45 ? Cardiology Labs Nt-Probnp: 103 pg/mL (07/02/23 01:45:00) High Sensitivity Troponin (HSTnT): 7 ng/L (07/02/23 04:21:00) High Sensitivity Troponin (HSTnT): 7 ng/L (07/02/23 01:45:00) ?? Blood Gases?? No qualifying data available. ?? Uric/LDH?? No qualifying data available. ? EKG study * Event Display: ECG 12-Lead Authored Date: Please click on pdf link to open report * Event Display: ECG 12-Lead Authored Date: Ventricular Rate: 66 BPM Atrial Rate: 66 BPM P-R Interval: 130 ms QRS Duration: 72 ms Q-T Interval: 404 ms QTC Calculation(Bazett): 423 ms P Mingo: 50 degrees R Mingo: 21 degrees T Mingo: 45 degrees Normal sinus rhythm Normal ECG When compared with ECG of 02-JUL-2023 00:58, No significant change was found Confirmed by Jadon Knowles ([id number]) on 07/02/2023 8:00:36 AM Fields: Jadon Knowles * Event Display: ECG 12-Lead Authored Date: Please click on pdf link to open report * Event Display: ECG 12-Lead Authored Date: Ventricular Rate: 78 BPM Atrial Rate: 78 BPM P-R Interval: 128 ms QRS Duration: 68 ms Q-T Interval: 384 ms QTC Calculation(Bazett): 437 ms P Mingo: 59 degrees R Mingo: 44 degrees T Mingo: 55 degrees Normal sinus rhythm Cannot rule out Anterior infarct , age undetermined Abnormal ECG When compared with ECG of 29-OCT-2015 22:28, No significant change was found Confirmed by MARCEL THAKUR ([id number]) on 07/02/2023 7:54:19 AM Fields: MARCEL THAKUR [facility] Progress note * Amadou COVINGTON, Aminah: PERFORM, SIGN, VERIFY Event Display: Progress Note Hospital Authored Date: [id number] Patient: NORMAN GONZALEZ Age: 57 years Sex: Female : 1965 Associated Diagnoses: None Author: Amadou COVINGTON, Aminah Findings Problem Related to Alteration in Gastrointestinal : Alteration in Gastrointestinal Func/new 07/04/2023 11:32 EDT Alteration in GI status Related to Other: choledocholitiasis Goals & Outcomes, Gastrointestinal Establish a regular pattern of elimination for pt, Nutritional intake is adequate for metabolic needs Interventions, Gastrointestinal Assess/monitor abdomen for distention, tenderness, Assess/monitor abdominal girth & bowel function, Assess/monitor bowel pattern, bowel sounds, flatus, Assess/monitor number of bowel movements, Assess/monitor color, quantity, quality, consistency of stoo, Assess/monitor pt for nausea, vomiting, Assess/monitor effects of re-hydration, Assess/monitor intake &output, Assess if pt tolerating diet, Collaborate/Consult with Manufacturing Engineer Machining; review recommendations, DVT prophylaxis as ordered, Elevate HOB to facilitate lung expansion, prevent aspiration, Establish toileting schedule for patient, Taking PO: Encourage/monitor intake & swallowing ability, Enteral nutrition;check residuals; HOB >30 degrees, Nasogastric to LWS as ordered;care per Standards of Practice, Provide info on community resources for education, support, Provide/encourage oral care ifNPO, Teach Pt/caregiver diet & give copy of dietary instructions, Teach Pt/caregiver on bowel elimination interventions, Teach Pt/caregiver re: importance of bowel regime, Teach Pt/caregiver re: n utritional intake & dietary restrict, Teach/encourage deep breath & cough exercises, Resolved problem, Interventions no longer in effect BH Goals/Interventions, Gastrointestinal Yes Gastrointestinal, Problem Start 07/03/2023 4:17 Reviewed plan with, Gastrointestinal Patient Patient Progression, Gastrointestinal Plan Initiation . Nursing Data Cardiac Data. : Cardiac Data. 07/04/2023 8:00 EDT Cardiovascular Symptoms None Nail Bed Color, Fingers [place] Nail Bed Color, Toes [place] Clubbing Present No Skin Temperature Upper Extremities Warm Skin Temperature Lower Extremities Warm Heart Rhythm Regular Pacemaker No Capillary Refill < 3 seconds Radial Pulse, Left Normal Radial Pulse, Right Normal equipment monitor phototypesetting Yes Cardiovascular WNL except . Gastrointestinal Data. : Gastrointestinal Data. 07/04/2023 8:00 EDT Gastrointestinal Symptoms None Abdomen Soft, Round Bowel Sounds LUQ Present Bowel Sounds RUQ Present Bowel Sounds LLQ Present Bowel Sounds RLQ Present Last Bowel Movement 07/01/2023 Ostomy present No Gastric tube present No GI WNL except . Genitourinary Data. : Genitourinary Data. 07/03/2023 8:00 EDT WNL . Integumentary Data. : Integumentary Data. 07/04/2023 8:00 EDT Skin Abnormality Other: Slight bruising on right hip post surgery Skin Color Normal for ethnicity Skin Integrity Intact Mucous Membrane Color [place] Mucous Membrane Description Moist Sensory Perception No impairment Sensory Perception No impairment Moisture Rarely moist Activity Walks occasionally Mobility No limitations Nutrition Adequate Friction and Shear No apparent problem Familia Score 21 Nursing Care Plan initiated/updated Yes Integumentary WNL except . Musculoskeletal Data. : Musculoskeletal Data. 07/04/2023 8:00 EDT Musculoskeletal WNL . Neurological Data. : Neurological Data. 07/04/2023 8:00 EDT Tongue Disposition Midline Level of Consciousness Full Consciousness Orientated to person, place, time Person, Place, Time, Event Facial Symmetry Intact Characteristics of Speech Clear and normal Swallowing Difficulty None Pupil description, left Regular Pupil description, right Regular Pupil reaction, left Brisk Pupil reaction, right Brisk Strength LUE 5-Active movement against gravity & full resistance Strength RUE 5-Active movement against gravity & full resistance Strength LLE 5-Active movement against gravity & full resistance Strength RLE 5-Active movement against gravity & full resistance Tone LUE Normal Tone RUE Normal Tone LLE Normal Tone RLE Normal Sensation LUE Intact Sensation RUE Intact Sensation LLE Intact Sensation RLE Intact Movement LUE Spontaneous, To command Movement RUE Spontaneous, To command Movement LLE Spontaneous, To command Movement RLE Spontaneous, To command Gait Steady Tremors None Response Eye Opening Spontaneously Motor Response-Adult Obeys commands Verbal Response-Adult Oriented and converses Beau Coma Score 15 1 - 10 Pain Scale Score 6 Pain Interventions Medicated prior to procedure/movement, Non-pharmacological, Pharmacological, PRNmedication, Repositioning, Rest Pain relief acceptable Yes Neuro WNL except Corneal/Blink Reflex Intact right, Intact left Eyes and Movements Conjugate gaze: Move in same direction at same speed Headache None Memory Intact Swallow - Neuro Normal . Evaluation A&O x4, speech clear, follows commands, PERRL. Denies headache, dizziness, n/t, n/v, changes invision from baseline. Lungs CTA, denies SOB, slight exp. wheeze. +PP, no edema, denies CP. +BS x4, LBM 07/01/2023 pt. denied belly pain, no distension, previously on clear liquid diet. Voids without pain or difficulty. Skin CDI. Bed locked in lowest position, bed alarm on, antislip socks applied, all questions and concerns addressed, call noriega within reach, safety maintained. Patient prepared for discharge, friend to pick her up approx. 11-1130. All questions and concerns addressed, education provided. . * Hanny Soto RN: PERFORM, SIGN, VERIFY Event Display: Progress Note Hospital Authored Date: Patient: NORMAN GONZALEZ Age: 57 years Sex: Female : 1965 Associated Diagnoses: None Author: Hanny Soto RN Findings Narrative/Incidental Pt alert and orietnted x3, c/o abdominal pain and a headache/. Medicated with prn oxycodone and tylenol. Left eye noted to be bloodshot and swollen. Pt also has new scattered bruising to right hip. Continues on LR at 75 ml/hr. Safety checks completed. Hourly rounds maintained. See CIS for full biophysical assessment. . * January Fairchild MD: PERFORM Event Display: Progress Note Hospital Authored Date: Patient: ??NORMAN GONZALEZ ? Age:??57 Years?Sex:??Female?:??1965?? Subjective CC: abdominal pain ?? still has abd pain Plan for ERCP today Review of Systems All systems reviewed and negative except as above Objective Vital Signs?? Temperature: 97.7 DegF (07/03/23 09:52:00) Temperature Route: Temporal (07/03/23 09:52:00) Pulse Rate: 70 bpm (07/03/23 09:52:00) Respiratory Rate:??14 br/min??Low (07/03/23 09:52:00) Systolic Blood Pressure: 132 mm Hg (07/03/23 09:52:00) Diastolic Blood Pressure: 68 mm Hg (07/03/23 09:52:00) Blood pressure sites: Arm, right (07/03/23 09:52:00) Mean Arterial Pressure: 89 mm Hg (07/03/23 09:52:00) Pulse Pressure: 67 mm Hg (07/03/23 08:00:00) Oxygen Saturation:??92 %??Low (07/03/23 09:52:00) Liters per Minute: 2 L/min (07/02/23 17:46:00) Mode of Delivery (Oxygen): Room air (07/03/23 09:52:00) Early Warning Score: 4 (07/03/23 10:19:26) ? Physical Exam ?? MATERIALS ENGINEERING TECHNICIAN: AA0 3, no focal motor or sensory deficit, cranial nerves II to XII intact CVS: S1, S2, No gallop, murmur or rub Resp: b/l good air entry, no wheezing or rhales, CTA b/l GI: Soft, epigastric and right upper quadrant tenderness without rebound, guarding or rigidity, ND,BS +ve EXT: no pedal edema ?? _ Inpatient Medications Medications (24) Active SCHEDULED: (8) Albuterol/Ipratropium Inhalation Bhavani 3mL (Duoneb Inhalation Solution) ??1 vials, BAND Nebulizer, 4 times a day Azithromycin 500 mg Tablet (Azithromycin Tablet) ??500 mg, By Mouth, Every Wednesday, Wednesday and Wednesday Breo Ellipta 200 mcg / 25 mcg Inhaler (Breo Ellipta 200 mcg-25 mcg Inhaler) ??1 puffs, Inhalation, Daily Cholestyramine 4 gm Powder (5.7 gm t.w.) (Cholestyramine Powder) ??4 Gm, By Mouth, 2 times a day NaCl 0.9% Flush 3ml (NaCL 0.9% Flush) ??3 mL, IV Push, Every 8 hours Roflumilast 500 mcg Tablet (roflumilast 500 mcg oral tablet) ??500 mcg, By Mouth, Daily Sertraline 50 mg Tablet (sertraline 50 mg oral tablet) ??200 mg, By Mouth, Daily at bedtime Trazodone 50 mg Tablet (traZODone 50 mg oral tablet) ??100 mg, By Mouth, Daily CONTINUOUS: (1) Lactated Ringers (1000 mL) Cont IV 1,000 mL (LR 1,000 mL) ??1,000 mL, IV Infusion, 75 mL/hr PRN: (15) Acetaminophen 325 mg Tablet (Acetaminophen Tablet) ??650 mg, By Mouth, Every 4 hours Albuterol/Ipratropium Inhalation Bhavani 3mL (Duoneb Inhalation Solution) ??1 vials, BAND Nebulizer, Every 4 hours Dextromethorphan-Guaifenesin 20 mg-200 mg/10 mL Liqu UD (Robitussin DM Liquid) ??10 mL, By Mouth, Every 4 hours Docusate Sodium 100 mg Capsule (Docusate Sodium Capsule) ??100 mg 1 capsule, By Mouth, 2 times a day Lorazepam 2 mg Inj Syringe (LORazepam Inj) ??0.5 mg, IV Push Slowly, Every 6 hours Melatonin 3 mg Tablet (Melatonin Tablet) ??3 mg, By Mouth, Daily at bedtime MorPHINE 2 mg Inj Syringe (MorPHINE Inj) ??2 mg, IV Push Slowly, Every 4 hours NaCl 0.9% Flush 3ml (NaCL 0.9% Flush) ??3 mL, IV Push, Every 8 hours Ondansetron 2mg/mL Inj (2mL Vial) (Ondansetron Inj) ??4 mg, IV Push Slowly, Every 30 minutes Ondansetron 2mg/mL Inj (2mL Vial) (Zofran Inj) ??4 mg, IV Push, Once Ondansetron 2mg/mL Inj (2mL Vial) (Ondansetron Inj) ??4 mg, IV Push, Every 4 hours OxyCODONE 5 mg IR Tablet (oxyCODONE 5 mg oral tablet) ??10 mg, By Mouth, Every 6 hours Polyethylene Glycol 17 Gm Powder (MiraLax Powder) ??17 Gm 1 pack/packet, By Mouth, Daily Senna Tablet ??8.6 mg 1 tablet, By Mouth, 2 times a day Simethicone 80 mg Chewable Tablet (Simethicone Tablet) ??80 mg, Chew, 3 times a day ? Results Recent Labs BLOOD COUNT & DIFF WBC 10.1 k/mm3 ()?? 07/03/2023 07:58 RBC 3.97 m/mm3 (Low)?? 07/03/2023 07:58 Hgb 12.4 Gm/dL ()?? 07/03/2023 07:58 Hct 38.7 % ()?? 07/03/2023 07:58 MCV 97.5 femtoliters ()?? 07/03/2023 07:58 MCH 31.2 pg ()?? 07/03/2023 07:58 MCHC 32.0 g/dL (Low)?? 07/03/2023 07:58 Platelet Count 300 k/mm3 ()?? 07/03/2023 07:58 RDW-SD 47.7 femtoliters (High)?? 07/03/2023 07:58 MPV 9.2 femtoliters (Low)?? 07/03/2023 07:58 Nucleated RBC (Automated) 0.0 #/100 WBC'S ()?? 07/03/2023 07:58 Abs. NRBC 0.0 k/mm3 ()?? 07/03/2023 07:58 Abs. Neut 6.3 k/mm3 ()?? 07/03/2023 07:58 Abs. Lymph 2.8 k/mm3 ()?? 07/03/2023 07:58 Abs. Davidson 0.7 k/mm3 ()?? 07/03/2023 07:58 Abs. Eo 0.2 k/mm3 ()?? 07/03/2023 07:58 Abs. Baso 0.1 k/mm3 ()?? 07/03/2023 07:58 Neut % 62.8 % ()?? 07/03/2023 07:58 Lymph % 28.2 % ()?? 07/03/2023 07:58 Davidson % 6.6 % ()?? 07/03/2023 07:58 Eos % 1.6 % ()?? 07/03/2023 07:58 Baso % 0.5 % ()?? 07/03/2023 07:58 Imm Gran 0.3 % ()?? 07/03/2023 07:58 Abs. Imm Gran 0.0 k/mm3 ()?? 07/03/2023 07:58 ?? CARDIAC Nt-Probnp 103 pg/mL ()?? 07/02/2023 01:45 High Sensitivity Troponin (HSTnT) 7 ng/L ()?? 07/02/2023 04:21 ?? CHEM GENERAL Sodium 142 mmol/L ()?? 07/03/2023 07:58 Potassium 4.0 mmol/L ()?? 07/03/2023 07:58 Chloride 103 mmol/L ()?? 07/03/2023 07:58 Bicarbonate Level 25 mmol/L ()?? 07/03/2023 07:58 Anion Gap 14 ()?? 07/03/2023 07:58 Glucose Level 85 mg/dL ()?? 07/03/2023 07:58 BUN 8 mg/dL ()?? 07/03/2023 07:58 Creatinine-Blood 0.70 mg/dL ()?? 07/03/2023 07:58 Estimated GFR Creatinine 101 ML/MIN/1.73 M2 ()?? 07/03/2023 07:58 Calcium 9.1 mg/dL ()?? 07/03/2023 07:58 Magnesium 1.8 mg/dL ()?? 07/02/2023 01:45 Protein, Total 5.1 Gm/dL (Low)?? 07/02/2023 01:45 Albumin 3.6 Gm/dL ()?? 07/02/2023 01:45 AG Ratio 2.4 ()?? 07/02/2023 01:45 Alkaline Phosphatase 88 units/L ()?? 07/03/2023 07:58 Lipase 94 units/L (High)?? 07/03/2023 07:58 AST (SGOT) 41 units/L (High)?? 07/03/2023 07:58 ALT (SGPT) 50 units/L (High)?? 07/03/2023 07:58 Bilirubin, Total 0.3 mg/dL ()?? 07/03/2023 07:58 Bilirubin, Direct <0.2 mg/dL ()?? 07/03/2023 07:58 Bilirubin, Indirect Direct bilirubin is less than the measureable limit. Therefore, indirect mg/dL ()?? 07/03/2023 07:58 ?? HEME OTHER Hold Blue Top SPECIMEN DISCARDED AFTER 4 HOURS. ()?? 07/02/2023 01:45 ?? UA/URINALYSIS Appear/Color, Urine YELLOW ()?? 07/02/2023 04:31 Specific Morrison, Urine >1.050 (High)?? 07/02/2023 04:31 pH, Urine 6.5 ()?? 07/02/2023 04:31 Albumin, Urine 1+ (Abnormal)?? 07/02/2023 04:31 Glucose, Urine TRACE (Abnormal)?? 07/02/2023 04:31 Ketones, Urine NEGATIVE ()?? 07/02/2023 04:31 Bilirubin, Urine NEGATIVE ()?? 07/02/2023 04:31 Hemoglobin, Urine 1+ (Abnormal)?? 07/02/2023 04:31 Nitrite, Urine NEGATIVE ()?? 07/02/2023 04:31 Leukocyte, Urine NEGATIVE ()?? 07/02/2023 04:31 Urobilinogen NORMAL mg/dL ()?? 07/02/2023 04:31 WBC's, Urine 4 /HPF ()?? 07/02/2023 04:31 RBC's, Urine 10 /HPF (High)?? 07/02/2023 04:31 Bacteria SLIGHT HPF (Abnormal)?? 07/02/2023 04:31 Squamous Epith 4 /HPF ()?? 07/02/2023 04:31 Mucus SLIGHT /LPF ()?? 07/02/2023 04:31 Hold Urine Culture Testing available 48 hours from time of collection. ()?? 07/02/2023 04:31 ?? VIROLOGY COVID-19 by RT-PCR NEGATIVE ()?? 07/02/2023 04:35 ? Assessment/Plan 57-year-old female here with abdominal pain??and admitted??with??CBD stone ?? Bile duct stone (K80.50):?? Abnormal LFTs ?? Patient presented with complaint of abdominal pain. CT abdomen as below Mild prominence of the intrahepatic bile ducts and common bile ducts measuring up to 0.8 cm. 0.2 cmhyperdense focus suspicious for obstructing stone in the region of the distal common bile duct/sphincter of Oddi. If no corresponding clinical symptoms or abnormal LFTs, the biliary dilation could also be secondary to postcholecystectomy state.?? History of cholecystectomy AST, ALT and lipase stable UA with RBC but no UTI Troponin negative Pulmonary embolism unlikely Abdominal examination is benign EKG without any acute change GI on board--ERCP today Symptomatic management Serial abdominal examination Trend LFTs IV fluids ?Chronic, stable and resolved issues: ? Microscopic hematuria: PCP follow-up ?? History of??asthma/COPD without exacerbation:??Continue patient on azithromycin which she takes every Wednesday and Wednesday.?? DuoNebs, Roflumilast??and Breo Ellipta ?? Depression/anxiety: Sertraline and trazodone ?? GERD: PPI ?? History of cholecystectomy: Cholestyramine ?? Anemia: f/u CBC ?? DVT prophylaxis: SCD ?? CODE STATUS: Full ?? Discussed with patient ?? Note * Aminah Tobar RN: PERFORM Event Display: Discharge/Transfer Note Hospital Authored Date: [id number] Nursing Discharge Note Entered On: 07/04/2023 11:39 EDT Performed On: 07/04/2023 11:38 EDT by Aminah Tobar RN Nursing Discharge Note 2 Discharge Time : 07/04/2023 11:38 EDT Discharge Level of Care at Discharge : Home/Senior Care/Foster Care Patient Left Unit Via : Ambulatory Patient Accompanied Off Unit with : Responsible adult DC Instructions Provided & Signed by Pt : Yes Patient Understands D/C Instructions : Yes Verbalized Understanding of D/C Plan By : Family, Responsible adult Patient Instructions Discharge Signed : Yes Discharge Comments : IV removed ,cannula intact. All questions and concerns addessed. No telemetry on patient at time of discharge. Did Pt have Specialty Bed or Wound Vac : No Aminah Tobar RN - 07/04/2023 11:38 EDT * January Fairchild MD: PERFORM Event Display: Discharge/Transfer Note Hospital Authored Date: [id number] Patient: ??NORMAN GONZALEZ ? Age:??57 Years?Sex:??Female?:??1965?? Patient Information Discharge Location: Primary Care Physician: Eric Sawyer MD Admit Date/Time: 07/02/23 06:00 Discharge Disposition Discharge Disposition: ?? Discharge Diagnosis ?? Bile duct stone (K80.50) Dilated cbd, acquired (K83.8) ?? _ Discharge Medications Albuterol (ProAir HFA 90 mcg/inh inhalation aerosol with adapter)?2?puff(s)?Inhalation?Every 6 hours?as needed?for wheezing Azithromycin (azithromycin 500 mg oral tablet)?TAKE ONE TABLET BY MOUTH EVERY WEDNESDAY, WEDNESDAY AND WEDNESDAY OF EACH WEEK Colestipol (colestipol 1 gm oral tablet)?TAKE 1 TABLET BY MOUTH TWICE A DAY WITH MEALS Cyanocobalamin (Vitamin B-12 1000 mcg oral tablet)?1,000?Microgram?1?tablet?By Mouth?Daily EPINEPHrine (EpiPen 2-Mitch 0.3 mg injectable kit)?0.3?Milligram?Intramuscular?Once fluticasone/umeclidinium/vilanterol (Trelegy Ellipta inhalation powder)?INHALE 1 PUFF BY INHALATION ROUTE EVERY DAY AT THE SAME TIME EACH DAY Latanoprost Ophthalmic (latanoprost 0.005% ophthalmic solution)?INSTILL 1 DROP INTO LEFT EYE EVERY NIGHT AT BEDTIME Omeprazole (omeprazole 20 mg oral enteric coated capsule)?See Instructions?TAKE 1 CAPSULE BY MOUTH DAILY FOR 360 DAYS. Ondansetron (ondansetron 4 mg oral tablet)?1?tab(s)?4?Milligram?By Mouth?Every 8 hours?as needed?Nausea & Vomiting Oxycodone (oxyCODONE 5 mg oral tablet)?5?Milligram?1?tablet?By Mouth?Every 6 hours?as needed?for 3?Days?Pain , Severe roflumilast (Roflumilast 500 mcg oral tablet)?TAKE 1 TABLET BY MOUTH EVERY DAY Sertraline (sertraline 100 mg oral tablet)?TAKE 2 TABLETS BY MOUTH EVERY DAY Trazodone (traZODone 100 mg oral tablet)?TAKE 1 TABLET BY MOUTH EVERYDAY AT BEDTIME ? Quality Measures Tobacco Use Treatment:? Medications Started oxycodone zofran ?MassPAT checked and pt given less than 5-7 days supply of narcotics after explaining side effects ? Medications Discontinued none Doses Changed none Allergies Allergies ?(Active and Proposed Allergies Only) lamoTRIgine? (Severity: Persistent Moderate, Onset: Unknown) ?Comments: Rash Motrin? (Severity: Unknown severity, Onset: Unknown) ?Reactions: Hives ? PCP Follow-Up/Heads-Up repeat UA LFTs--abnormal--stable Hospital Course 57-year-old female here with abdominal pain??and admitted??with??CBD stone ?? Bile duct stone (K80.50):?? Abnormal LFTs ?? Patient presented with complaint of abdominal pain. CT abdomen as below Mild prominence of the intrahepatic bile ducts and common bile ducts measuring up to 0.8 cm. 0.2 cmhyperdense focus suspicious for obstructing stone in the region of the distal common bile duct/sphincter of Oddi. If no corresponding clinical symptoms or abnormal LFTs, the biliary dilation could also be secondary to postcholecystectomy state.?? History of cholecystectomy AST, ALT and lipase stable UA with RBC but no UTI Troponin negative Pulmonary embolism unlikely Abdominal examination is benign EKG without any acute change GI on board--ERCP --s/p sludge extraction pt feeling better tolerating diet LFTs stable ? Microscopic hematuria: PCP follow-up for repeat and further eval ? Today feels better. Having stable vitals. CTA BL, S1, S2 no GMR.Abd SOft, mild epigastric TTP but no rebound, guarding or rigidity, BS+ve, AAO3. no pedal edema ?? Objective . Physical Exam Surgical Procedures ERCP with Biopsy 07/03/2023 11:13 Pending Results Hold Lavender Tube (BB) ordered on 07/02/2023 XR C-Arm < 1 Hour ordered on 07/03/2023 Patient Education Titles WebMD [employer]ite Patient Education - Ondansetron Oral Tablet?? Web[employer] Patient Education - Oxycodone Oral Tablet 5 mg?? Follow-Up Appointments Added Follow Up ?Time Frame ?Comments Eric Sawyer?1 to 2 weeks?for the follow upabnormal LFTs--repeat and further evalrepeat UA as your urine showed RBC--Please discuss about need for further eval Prescription has been sent to pharmacy in [facility] Please mantain adeqaute hydration Post Discharge Care Discharge ?07/04/23 9:34:00 EDT Discharge Prescriptions ?ePrescribed, 07/04/23 9:34:00 EDT Home Health Face to Face ^HomeHealthFTF 35??minutes spent on discharge * Aminah Tobar RN: PERFORM Event Display: Patient Education/Instruction Authored Date: [id number] Inpatient Adult Discharge Instructions. [address] [address] Name: MARINBREE BAJWAHAM : 1965?? Visit: 07/02/2023 06:00?? Current Date: 07/04/2023 11:00 ?? Account: [id number]?? Inpatient Adult Discharge Instructions We would like to thank you for allowing us to assist you with your healthcare needs. The following includes patient education materials and information regarding your injury/illness. Our entire staffstrives to provide an excellent experience for our patients and their families. PLEASE ENSURE YOU FOLLOW-UP PER THE INSTRUCTIONS BELOW! ?? YOUR OPINION IS IMPORTANT TO US! Please complete the survey you may receive by mail or email. Your feedback will be used to make improvements to the healthcare experiences of our patients and their families. Surveys are administered by [employer], [place]. ?? If further treatment with your primary care physician or another doctor is recommended, it is important for you to keep the appointment. Call your primary care physician or return to the Emergency Department immediately if your condition worsens, fails to improve, or new symptoms develop. If you need to find a doctor, you can call [facility] for a referral at [phone] or toll free at [phone]) or log in to [email or web address].. ?? [facility], in keeping with [facility] guidance, no longer requires face masks for staff, patientsor visitors in most situations. Similiar to time spent indoors at other locations, there is the chance that you were exposed to repiratory viruses during your time with us (such as flu or COVID-19). If you develop symptoms concerning for a viral respiratory infection, please seek testing (and treatment if indicated) from your medical provider or home test kit. ?? You can view and manage your care through the patient portal or by using a health care [facility] of your choosing. [employer] is a website that allows you to securely view your medical information including your hospital discharge summary, office visit summaries, medications and follow-up visits. You can also request appointments, renew medications, and request access to your medical information using a health care [facility] of your choosing, or just ask a question. You can enroll at [email or web address] or register during your next office visit. You have been discharged from [facility], Patient Care Unit: S3??. If you have any questions regarding these instructions, including results of studies pending, afteryou leave, please call us and we will be happy to assist you 31/08. [facility] Your Care Team Attending Physician January Fairchild MD?? Consulting Providers January Fairchild MD?? Discharging Providers January Fairchild MD Reason for Your Visit Coming from home, chest pain half an hour ago radiating to lower back. Started out as abd discomfort and indigestion. Vomitted multiple times per EMS. Pain subsdied from10 to 7 after fentanyl. Hx of panreatitis and COPD Pt reports RUQ pain. Pt denies NUNU?? Your Diagnosis Feared complaint without diagnosis Abdominal pain Bile duct stone COPD exacerbation Dilated cbd, acquired Tests Performed Below is a partial list of the tests performed during your hospitalization. You may have had other tests and procedures not included in this list. Please discuss all test results with your provider. Alk Phos ALT AST Basic Metabolic Panel Bilirubin Total + Direct CBC w/ Differential Comprehensive Metabolic Panel COVID-19 (Novel Coronavirus), Rapid PCR High??Sensitivity??Troponin T Hold Blue Top Tube HOLD MERCADO TUBE HOLD LAVENDER TUBE Lipase Mg Level ProBNP Troponin T, High Sensitivity Urinalysis w/hold for Urine Culture CT Abd/Pelvis W/ IV Contrast Only XR C-Arm < 1 Hour?-- Results Pending -- XR Chest 2 Views Frontal and Lat XR ERCP Both Ducts You will be contacted within 72 hours with your results. Hold Lavender Tube (BB)?? C-Arm < 1 Hour?? Primary Care Provider Silverio PRECIADO, Eric Ellis? Advance Directive Health Care Proxy on File No Discharge Vitals Temperature: 98.7 DegF Height: 162.56 cm Pulse Rate: 72 bpm ?? Respiratory Rate: 18 br/min ?? Systolic Blood Pressure: 136 mm Hg ?? Diastolic Blood Pressure: 61 mm Hg ?? Oxygen Saturation: 95 % ?? Studies Pending All studies ordered during this hospital stay have been completed unless listed below. Please discuss all pending results with your provider listed above in these instructions. ?? Hold Lavender Tube (BB)?? C-Arm < 1 Hour?? What to do next Instructions From Your Doctor ?? Orders? 07/04/23 9:34:00 EDT?? Prescriptions??, ??07/04/23 9:34:00 EDT?? You Need to Schedule the Following Appointments Follow Up with??Eric Sawyer When:??Within 1 to 2 weeks Why: for the follow up abnormal LFTs--repeat and further eval repeat UA as your urine showed RBC--Please discuss about need for further eval Where: [address] [place] [address]- Business (1) Follow Up with??Prescription has been sent to pharmacy in [facility] Follow Up with??Please mantain adeqaute hydration Discharge Medications NORMAN GONZALEZ :1965 Visit Date:07/02/2023 Medications: Please continue your medications until treatment is completed or stopped by your provider. Medications not listed below should be discontinued. Discuss any questions related to medications with your provider. What How Much When Instructions Next Dose New Ondansetron (ondansetron 4 mg oral tablet) 1 tab(s) Oral Every 8 hours as needed for Nausea & Vomiting Pickup at [facility] 3 Not given today for nausea As needed as prescribed New Oxycodone (oxyCODONE 5 mg oral tablet) 1 tab(s) Oral Every 6 hours as needed for Pain , Severe Duration: 3 Days Pickup at [facility] 3 Last dose given this morning approx. 10am, continue as needed as prescribed. No earlier than today 4pm Changed Albuterol (ProAir HFA 90 mcg/ inh inhalation aerosol with adapter) 2 puff(s) Inhalation Every 6 hours as needed for for wheezing Last dose given today approx. 10am No earlier than today 4pm Unchanged Azithromycin (azithromycin 500 mg oral tablet) TAKE ONE TABLET BY MOUTH EVERY WEDNESDAY, WEDNESDAY AND WEDNESDAY OF EACH WEEK ?? Not given today in hospital (Wednesday) Continue as prescibed as needed. Next due Wednesday, 07/04 Unchanged Colestipol (colestipol 1 gm oral tablet) TAKE 1 TABLET BY MOUTH TWICE A DAY WITH MEALS ?? Gave Choleystyramine at approx. 1030am Today at lunch or dinner Unchanged Cyanocobalamin (Vitamin B-12 1000 mcg oral tablet) 1 tab(s) Oral Daily Not given in hospital setting, continue as prescribed as needed As prescribed as needed Unchanged EPINEPHrine (EpiPen 2-Mitch 0.3 mg injectable kit) 0.3 Milligram Intramuscular Once Not given in hospital setting, continue as prescribed as needed As prescribed as needed Unchanged fluticasone/ umeclidinium/ vilanterol (Trelegy Ellipta inhalation powder) INHALE 1 PUFF BY INHALATION ROUTE EVERY DAY AT THE SAME TIME EACH DAY ?? Not given in hospital setting, continue as prescribed as needed As prescribed as needed Unchanged Latanoprost Ophthalmic (latanoprost 0.005% ophthalmic solution) INSTILL 1 DROP INTO LEFT EYE EVERY NIGHT AT BEDTIME ?? Not given in hospital setting, continue as prescribed as needed As prescribed as needed Unchanged Omeprazole (omeprazole 20 mg oral enteric coated capsule) See instructions TAKE 1 CAPSULE BY MOUTH DAILY FOR 360 DAYS. ?? Not given in hospital setting, continue as prescribed as needed As prescribed as needed Unchanged roflumilast (Roflumilast 500 mcg oral tablet) TAKE 1 TABLET BY MOUTH EVERY DAY ?? Had to med request from pharmacy, not yet given in hospital setting. Today 07/03 Unchanged Sertraline (sertraline 100 mg oral tablet) TAKE 2 TABLETS BY MOUTH EVERY DAY ?? Not yet given today, due at bedtime Today 07/03, 9pm or bedtime Unchanged Trazodone (traZODone 100 mg oral tablet) TAKE 1 TABLET BY MOUTH EVERYDAY AT BEDTIME ?? Not yet given today, due at bedtime Today 07/03, 9pm or bedtime Pharm[facility] Information [facility]: [address], [place] [id number] [phone] ?? What How Much When Comments Stop Taking Multivitamin With Minerals (Centrum Silver Ultra Women'soral tablet) 1 tab(s) Oral Daily Discontinue this medication Stop Taking Potassium Gluconate (potassium gluconate 550 mg oral tablet) 1 tab(s) Oral Daily Discontinue this medication Stop Taking Pyridoxine (Vitamin B6 100 mg oral tablet) See instructions 1 tablet By Mouth Daily ?? Discontinue this medication Stop Taking Quetiapine (SEROquel 50 mg oral tablet) 1 tab(s) Oral Daily Discontinue this medication Stop Taking Thiamine (Vitamin B1 100 mg oral tablet) 1 tab(s) Oral Daily Discontinue this medication Prescription Given During Visit Omeprazole (omeprazole 20 mg oral enteric coated capsule) - , # 30 tablet, 0 Refills, TAKE 1 CAPSULE BY MOUTH DAILY FOR 360 DAYS.?? Ondansetron (ondansetron 4 mg oral tablet) - 1 tablet = 4 mg, By Mouth, Every 8 hours, # 10 tablet,0 Refills, [facility], [address] [place] [address] [phone]?? Oxycodone (oxyCODONE 5 mg oral tablet) - 1 tablet = 5 mg, By Mouth, Every 6 hours, # 12 tablet, 0 Refills, [facility], [address] [place] [address] [phone]?? Laboratory Results Below is a partial list of the most recent Laboratory test results done prior to this discharge. You may have had other tests and procedures not included in this list. Please discuss all test resultswith your provider. Alk Phos (07/04/2023) ???Alkaline Phosphatase - 77 units/L ALT (07/04/2023) ???ALT (SGPT) - 52 units/L AST (07/04/2023) ???AST (SGOT) - 42 units/L Basic Metabolic Panel (07/03/2023) ???Sodium - 142 mmol/L???Potassium - 4.0 mmol/L???Chloride - 103 mmol/L???Bicarbonate Level - 25 mmol/L???Anion Gap - 14???Glucose Level - 85 mg/dL???BUN - 8 mg/dL???Creatinine-Blood - 0.70 mg/dL???Estimated GFR Creatinine - 101 ML/MIN/1.73 M2???Calcium - 9.1 mg/dL Bilirubin Total + Direct (07/04/2023) ? ?Bilirubin, Total - 0.3 mg/dL? ?Bilirubin, Direct - <0.2 mg/dL? ?Bilirubin, Indirect - Direct bilirubin is less than the measureable limit. Therefore, indirect CBC w/ Differential (07/03/2023) ???WBC - 10.1 k/mm3???RBC - 3.97 m/mm3???Hgb - 12.4 Gm/dL???Hct - 38.7 %???MCV - 97.5 femtoliters???MCH - 31.2 pg???MCHC - 32.0 g/dL???Platelet Count - 300 k/mm3???RDW-SD - 47.7 femtoliters???MPV - 9.2 femtoliters???Nucleated RBC (Automated) - 0.0 #/100 WBC'S???Abs. NRBC - 0.0 k/mm3???Abs. Neut - 6.3 k/mm3???Abs. Lymph - 2.8 k/mm3???Abs. Davidson - 0.7 k/mm3???Abs. Eo - 0.2 k/mm3???Abs. Baso - 0.1 k/mm3???Neut % - 62.8 %???Lymph % - 28.2 %???Davidson % - 6.6 %???Eos % - 1.6 %???Baso % - 0.5 %???Imm Gran - 0.3 %???Abs. Imm Gran - 0.0 k/mm3 Comprehensive Metabolic Panel (07/02/2023) ???Sodium - 138 mmol/L???Potassium - 3.6 mmol/L???Chloride - 104 mmol/L???Bicarbonate Level - 24 mmol/L???Anion Gap - 10???Glucose Level - 109 mg/dL???BUN - 14 mg/dL???Creatinine-Blood - 0.80 mg/dL???Estimated GFR Creatinine - 86 ML/MIN/1.73 M2???Calcium - 8.6 mg/dL???Protein, Total - 5.1 Gm/dL???Albumin - 3.6 Gm/dL???AG Ratio - 2.4???Alkaline Phosphatase - 76 units/L???AST (SGOT) - 70 units/L???ALT (SGPT) - 39 units/L? ?Bilirubin, Total - <0.2 mg/dL COVID-19 (Novel Coronavirus), Rapid PCR (07/02/2023) ???COVID-19 by RT-PCR - NEGATIVE High??Sensitivity??Troponin T (07/02/2023) ???High Sensitivity Troponin (HSTnT) - 7 ng/L Hold Blue Top Tube (07/02/2023) ???Hold Blue Top - SPECIMEN DISCARDED AFTER 4 HOURS. HOLD MERCADO TUBE (07/02/2023) ???Hold Mercado Top - SPECIMEN DISCARDED AFTER 1 WEEK HOLD LAVENDER TUBE (07/04/2023) ???Hold Lavender Top - SPECIMEN DISCARDED AFTER 24 HOURS. Lipase (07/03/2023) ???Lipase - 94 units/L Mg Level (07/02/2023) ???Magnesium - 1.8 mg/dL ProBNP (07/02/2023) ???Nt-Probnp - 103 pg/mL Troponin T, High Sensitivity (07/02/2023) ???High Sensitivity Troponin (HSTnT) - 7 ng/L Urinalysis w/hold for Urine Culture (07/02/2023) ? ?Appear/Color, Urine - YELLOW? ?Specific Morrison, Urine - >1.050? ?pH, Urine - 6.5? ?Albumin, Urine - 1+???Glucose, Urine - TRACE???Ketones, Urine - NEGATIVE???Bilirubin, Urine - NEGATIVE???Hemoglobin, Urine - 1+???Nitrite, Urine - NEGATIVE???Leukocyte, Urine - NEGATIVE???Urobilinogen - NORMAL???WBC's, Urine - 4 /HPF???RBC's, Urine - 10 /HPF???Bacteria - SLIGHT???Squamous Epith - 4 /HPF???Mucus - SLIGHT???Hold Urine Culture - Testing available 48 hours from time of collection. Allergies (NKA means No Known Allergies) lamoTRIgine Motrin??(Hives) Problems Active Problems??(6) Abdominal pain?? Asthma?? Eczema?? Feared complaint without diagnosis?? History of substance abuse?? Tobacco abuse?? Education Materials Below is the list of Educational Leaflet Providered with your Discharge Instructions. [employer] Patient Education - Ondansetron Oral Tablet?? [employer]ite Patient Education - Oxycodone Oral Tablet 5 mg?? Valuables and Belongings I fully understand and agree that [facility] accepts no responsibility for all my personal property including clothing, toilet articles, radios, jewelry, dentures, hearing aids, rings, money, or any other property that is in my possession or is brought to me after admission. I understand certain valuables may be placed in a hospital safe for a short period of time. I understand that the hospital is not liable for loss or damage due to accident, fire, or other natural occurrence while said property is in the safe. I accept full responsibility for any personal property that I keep with me, and will not hold the hospital responsible in case of loss or disappearance. I acknowledge that i have been encouraged to send valuables and belongings home. ?? Date for Pt to Sign Valuables/Belongings: 07/02/23 06:37:00 ?? Other Discharge Information ? Pulmonary Rehab Status?? Pulmonary Rehab Discharge Status?? Respiratory Rate: 18 br/min ? Common Emergency Awareness Tips IS IT A STROKE? Act FAST and Check for these signs: FACE Does the face look uneven? ARM Does one arm drift down? SPEECH Does their speech sound strange? TIME Call at any sign of stroke ?? Heart Attack Signs Chest discomfort: Most heart attacks involve discomfort in the center of the chest and lasts more than a few minutes, or goes away and comes back. It can feel like uncomfortable pressure, squeezing, fullness or pain. Discomfort in upper body: Symptoms can include pain or discomfort in one or both arms, back, neck, jaw or stomach. Shortness of breath: With or without discomfort. Other signs: Breaking out in a cold sweat, nausea, or lightheaded. Remember, MINUTES DO MATTER. If you experience any of these heart attack warning signs, call to get immediate medical attention! ?? Smoking can increase your chances of developing chronic health problems and can cause harmful effects to other family members in your house. If you smoke, you are strongly encouraged to quit. Please call [facility] at [phone] or [phone] ([phone]) or log in to [email or web address] for referrals to smoking cessation programs. ?? 996 Suicide & Crisis Lifeline is available 31/08 if you or someone you know needs to find a reason to keep living. By calling 811 you'll be connected to a skilled, trained counselor at a crisis center in your area. INPATIENT DISCHARGE INSTRUCTIONS SIGNATURE NORMAN MACIAS Location:[facility] Registration Date and Time:07/02/2023 06:00 EDT Primary Care Physician: Eric Sawyer MD, Attending Physician: January Fairchild MD, NORMAN BLAKE, have received the above patient education materials/instructions and have verbalized understanding. If ambulance or transport services are being used I further acknowledge being given a choice of service. ?? If you need to contact me, please call me at this number: . Patient/Career Development Counselor Name: Patient/Career Development Counselor Signature: Relationship to Patient: Witness Name/Signature: Date: * January Fairchild MD: SIGN, PERFORM, SIGN, VERIFY Event Display: Patient Education Handout Authored Date: [id number] * January Fairchild MD: PERFORM Event Display: Patient Education Leaflets Authored Date: [id number] Ondansetron Oral Tablet ?? [address] Ondansetron Oral Tablet Brands: Zofran Uses For nausea or vomiting. ?? Instructions Keep the medicine at room temperature. Avoid heat and direct light. Tell your doctor if you have severe or persistent sweating, diarrhea or vomiting. These can increase your risk of a serious side effect. If you are using this medicine regularly, it is important to take each dose of medicine on time. Keep taking the medicine even if you feel well. If you forget to take a dose on time, take it as soon as you remember. If it is almost time for thenext dose, do not take the missed dose. Return to your normal schedule. Do not take 2 doses at one time. Drug interactions can change how medicines work or increase risk for side effects. Tell your healthcare providers about all medicines taken. Include prescription and egbk-osc-bsmrmhm medicines, vitamins, and herbal medicines. Speak with your doctor or pharmacist before starting or stopping any medicine. Tell your doctor if symptoms do not get better or if they get worse. Keep all appointments for medical exams and tests while on this medicine. ?? Cautions Tell your doctor and pharmacist if you ever had an allergic reaction to a medicine. Some patients taking this medicine have experienced serious side effects. Please speak with your doctor to understand the risks and benefits associated with this medicine. Do not use the medication any more than instructed. This medicine may cause dizziness or fainting. Do not stand or sit up quickly. Your ability to stay alert or to react quickly may be impaired by this medicine. Do not drive or operate machinery until you know how this medicine will affect you. Please check with your doctor before drinking alcohol while on this medicine. Call the doctor if there are any signs of confusion or unusual changes in behavior. It is unknown if this medicine passes into breast milk. Ask your doctor before . During , this medicine should be used only when clearly needed. Talk to your doctor about the risks and benefits. Do not take Irwindale's wort while on this medicine. Do not share this medicine with anyone who has not been prescribed this medicine. ?? Side Effects The following is a list of some common side effects from this medicine. Please speak with your doctor about what you should do if you experience these or other side effects. ??? constipation ??? dizziness or drowsiness ??? lack of energy and tiredness ??? headaches ??? lightheadedness Call your doctor or get medical help right away if you notice any of these more serious side effects: ??? agitated feeling or trouble sleeping ??? loss of balance ??? chest pain ??? diarrhea ??? fainting ??? hallucinations (unusual thoughts, seeing or hearing things that are not real) ??? fast, irregular, or slow heartbeat ??? muscle aches, spasms or abnormal movements ??? muscle trembling ??? restlessness ??? stomach pain ??? blurring or changes of vision ??? severe or persistent vomiting A few people may have an allergic reaction to this medicine. Symptoms can include difficulty breathing, skin rash, itching, swelling, or severe dizziness. If you notice any of these symptoms, seek medical help quickly. ?? Extra Please speak with your doctor, nurse, or pharmacist if you have any questions about this medicine. ?? [email or web address] IMPORTANT NOTE: This document tells you briefly how to take your medicine, but it does not tell youall there is to know about it. Your doctor or pharmacist may give you other documents about your medicine. Please talk to them if you have any questions. Always follow their advice. There is a more complete description of this medicine available in [place]. Scan this code on your smartphone or tablet or use the web address below. You can also ask your pharmacist for a printout. If you have any questions, please ask your pharmacist. The display and use of this drug information is subject to Terms of Use. Copyright(c) 2023 [employer]. ?? The Your.MD. All rights reserved. This information is not intended as a substitute for professional medical care. Always follow your healthcare professional's instructions. ?? * January Fairchild MD: PERFORM Event Display: Patient Education Leaflets Authored Date: [id number] Oxycodone Oral Tablet 5 mg ?? [id number] Oxycodone Oral Tablet 5 mg Uses For pain. ?? Instructions Some brands of this medicine should be swallowed whole while other brands may be crushed. Ask your pharmacist how you should take your medicine. This medicine may be taken with or without food. Swallow with a full glass (8 oz) of water unless your doctor gives you different instructions. Store at room temperature away from heat, light, and moisture. Do not keep in the bathroom. Please ask your doctor, nurse, or pharmacist how to discard unused medicines safely. To reduce constipation, eat high fiber foods, drink plenty of water and exercise. Avoid grapefruit and grapefruit juice while on this medicine. Drug interactions can change how medicines work or increase risk for side effects. Tell your healthcare providers about all medicines taken. Include prescription and gnlk-dyq-ysqhvrq medicines, vitamins, and herbal medicines. Speak with your doctor or pharmacist before starting or stopping any medicine. Tell your doctor if symptoms do not get better or if they get worse. Parts of this medicine may come out in the stool. This is normal. ?? Cautions This medicine has an opioid. Opioids help many people but may cause addiction, especially if used for a long time. The addiction risk is higher if you have a substance use disorder (overuse of or addiction to drugs or alcohol). Ask your doctor about the benefits and risks. Ask your doctor or pharmacist if you should have naloxone on hand to treat opioid overdose. Teach your family or household members about the signs of an opioid overdose and how to treat it. If you stop this medicine suddenly after using it for a long time, you may have withdrawal. Your doctor may slowly lower your dose before stopping it. Tell your doctor right away if you have symptoms, such as unusual sweating, watering eyes, runny nose, chills, diarrhea, yawning, muscle aches, restlessness, anxiety, trouble sleeping, or thoughts of suicide. Tell your doctor and pharmacist if you ever had an allergic reaction to a medicine. Do not use the medication any more than instructed. If possible, avoid using with alcohol, marijuana, or other medicines that can cause dizziness or drowsiness. These include allergy/cold products, muscle relaxers, sleep aids, and pain relievers. Your ability to stay alert or to react quickly may be impaired by this medicine. Do not drive or operate machinery until you know how this medicine will affect you. This medicine passes into breast milk. Ask your doctor before . This medicine can hurt a new baby in the womb. If you become while on this medicine, tell your doctor immediately. Your doctor may switch you to a different medicine. This medicine should be used with caution in patients with breathing difficulties. Call your doctor right away if you notice slow or shallow breathing. Do not share this medicine with anyone who has not been prescribed this medicine. Some patients have serious side effects from this medicine. Ask your pharmacist to show you the information from the Food and Drug Administration (FDA) and discuss it with you. ?? Side Effects The following is a list of some common side effects from this medicine. Please speak with your doctor about what you should do if you experience these or other side effects. ??? decreased appetite ??? constipation ??? dizziness or drowsiness ??? lightheadedness ??? nausea and vomiting Call your doctor or get medical help right away if you notice any of these more serious side effects: ??? agitated feeling or trouble sleeping ??? decreased awareness or responsiveness ??? breathing interruption during sleep ??? shallow, irregular breathing ??? changes in memory, mood, or thinking ??? confusion ??? fainting ??? hallucinations (unusual thoughts, seeing or hearing things that are notreal) ??? seizures ??? severe stomach or bowel pain ??? unusual or unexplained tiredness or weakness ??? difficulty or discomfort urinating ??? weight loss A few people may have an allergic reaction to this medicine. Symptoms can include difficulty breathing, skin rash, itching, swelling, or severe dizziness. If you notice any of these symptoms, seek medical help quickly. ?? Extra Please speak with your doctor, nurse, or pharmacist if you have any questions about this medicine. ?? [email or web address] IMPORTANT NOTE: This document tells you briefly how to take your medicine, but it does not tell youall there is to know about it. Your doctor or pharmacist may give you other documents about your medicine. Please talk to them if you have any questions. Always follow their advice. There is a more complete description of this medicine available in Iraqi. Scan this code on your smartphone or tablet or use the web address below. You can also ask your pharmacist for a printout. If you have any questions, please ask your pharmacist. The display and use of this drug information is subject to Terms of Use. Copyright(c) 2023 [employer]. ?? The Your.MD. All rights reserved. This information is not intended as a substitute for professional medical care. Always follow your healthcare professional's instructions. ?? Patient Care team information Care Team Personnel Name: Alyssa Venegas RN Position: [facility] RN Member Role: Primary Care Nurse Name: Trina Fu RN Position: [facility] RN Member Role: Primary Care Nurse Name: Hanny Soto RN Position: [facility] RN Member Role: Primary Care Nurse Name: Wilber Barreto RN Position: [facility] RN Member Role: Primary Care Nurse Name: Jadon Campos RN Position: [facility] RN Member Role: Primary Care Nurse Name: Iveth Garcia RN Position: [facility] RN Member Role: Primary Care Nurse Name: Abbi Darby RN Position: [facility] AMB Nurse Member Role: Primary Care Nurse Name: Karon Hammond Position: [facility] Outreach Member Role: [employer]etime Consulting Physician Name: Eric Sawyer MD Position: Reference Physician Member Role: PCP Address: Address: [address] [place] [id number] Name: Julia Dooley RN Position: [facility] RN Member Role: Primary Care Nurse Care Team Related Persons Name: SHIRIN MAHAN Address: home [address] [place] [address] Name: MARII GONZALEZ Address: home [address] [facility] [place] [address]
--- NOTE | 2023-07-19 11:07 | MHC.OFFWIV ---
Intake Vital Signs 07/19/23 11:08 Height 5 ft 3.5 in Weight 126 lb BMI 22.0 BP 120/80 Blood Pressure Location Lt brachial Position Sitting Pulse 88 Pulse Source Pulse Oximeter Temp 97.4 F Temp Source Temporal Artery Scan Pulse Oximetry (%) 95 Oxygen Delivery Method Room Air Intake Visit Reasons: EP COPD acting up Intake Note: pt is here today for COPD acting up started 4 days ago Patient Tobacco Use Status: Current everyday Tobacco user Allergies buprenorphine [From SUBOXONE] Allergy (Severe, Verified 07/19/23 11:15) ANAPHYLAXIS naloxone [From SUBOXONE] Allergy (Severe, Verified 07/19/23 11:15) ANAPHYLAXIS NSAIDS (Non-Steroidal Anti-Inflamma [Nsaids] Allergy (Unknown, Verified 07/19/23 11:15) RASH, ITCHING Do you need a note to return to daycare/school/sports/work: No HPI HPI Comments History of Present Illness Details Patient presents to the walk-in today for sick visit Complaining of COPD exacerbation for last 4 days Patient using albuterol MDI, nebulizer, Trelegy inhaler, Zithromax 3 times weekly and roflumilast Smoking approximately 7 cigarettes daily, trying to quit Feels that the pollen and seasonal allergies are making her breathing worse [facility] Social History Patient Tobacco Use Status: Current everyday Tobacco user Review of Systems Const All systems reviewed & are unremarkable except as noted in HPI and below Physical Exam Vital Signs: Last Vital Signs Temp 97.4 F 07/19/23 11:08 Pulse 80 07/19/23 11:08 Resp 80 H 07/19/23 11:08 BP 120/80 07/19/23 11:08 Pulse Ox 95 07/19/23 11:08 Oxygen Delivery Method Room Air 07/19/23 11:08 BMI result Body Mass Index 22.0 General: awake, alert, oriented. Answers questions appropriately. Fully engaged in examination. Skin: warm, dry, intact HEENT: TMs intact bilaterally, without erythema or exudate. Posterior pharynx without erythema or exudate. Sclera without icterus or injection. Cardiac: External chest normal in appearance. Respiratory: Diffuse, faint expiratory wheezing throughout Abdomen: without gross distension. Neurological: Oriented to person, place, time and situation. Thought process intact. Psychiatric: Appropriate mood and affect. Good judgment and insight. Assessment & Plan Assessment & Plan (1) COPD exacerbation: Code(s): J44.1 - Chronic obstructive pulmonary disease with (acute) exacerbation (2) Current smoker: Comment: 7 cigarettes daily Code(s): F17.200 - Nicotine dependence, unspecified, uncomplicated Plan Continue with meds as prescribed by direct marketing coordinator Prednisone 40 mg p.o. daily Recommend [id number] allergy medicine, Claritin or Zyrtec once daily Lengthy discussion with patient about smoking, counseled on smoking cessation and methods to quit All questions and concerns were answered, patient agrees with the plan Follow-up with pulmonology, PCP or return here for any new or worsening symptoms Medications: New prednisone 40 mg (2 x 20 mg) PO DAILY 6 days 12 tabs 0RF Coding Level of Care Code Est Pt Level 3 (33299) Diagnoses COPD exacerbation J44.1 Current smoker F17.200
[2023-07-19 11:08] VITALS: BP 120/80; PULSE 88; TEMP 36.3; O2SAT 95; BMI 22.0
== END 2023-07-19 11:59 | disposition home or self-care (01) ==
PROVIDERS: PCP Internal Medicine; Visit Provider Registered Nurse Emergency
DX: J44.1 Chronic obstructive pulmonary disease with (acute) exacerbation (principal); F17.200 Nicotine dependence, unspecified, uncomplicated
CPT/HCPCS: 99213

== ENCOUNTER 2023-10-05 09:58 | Outpatient (AMB) | payer OTHER, SELFPAY ==
--- NOTE | 2023-10-05 10:00 | AM.OFFWIN_ITS ---
Intake Vital Signs 10/05/23 10:01 Height 5 ft 3.5 in Weight 124 lb 6 oz BMI 21.7 BP 110/70 Blood Pressure Location Lt brachial Position Sitting Pulse 94 Pulse Source Pulse Oximeter Temp 99.2 F Temp Source Oral Pulse Oximetry (%) 94 Oxygen Delivery Method Room Air Intake Visit Reasons: EP- SOB, sinus congestion, tight chest Intake Note: Patient here for SOB (COPD), sinus congestion and chest tightness that started three days ago. Patient Tobacco Use Status: Current everyday Tobacco user Allergies buprenorphine [From SUBOXONE] Allergy (Severe, Verified 10/05/23 10:02) ANAPHYLAXIS naloxone [From SUBOXONE] Allergy (Severe, Verified 10/05/23 10:02) ANAPHYLAXIS NSAIDS (Non-Steroidal Anti-Inflamma [Nsaids] Allergy (Unknown, Verified 10/05/23 10:02) RASH, ITCHING Do you need a note to return to daycare/school/sports/work: No HPI HPI Comments History of Present Illness Details Patient is a 58-year-old female with a past medical history of COPD complaining of 3 days of increased shortness of breath and wheezing, sinus pain and chest tightness and left ear pain. She denies any fevers, head congestion, cough or sore throat. She states she takes 500 mg of azithromycin on Wednesdays and Fridays for her COPD which she has been taking. [facility] Social History Patient Tobacco Use Status: Current everyday Tobacco user Review of Systems Const All systems reviewed & are unremarkable except as noted in HPI and below Physical Exam Vital Signs: Last Vital Signs Temp 99.2 F 10/05/23 10:01 Pulse 94 10/05/23 10:01 BP 110/70 10/05/23 10:01 Pulse Ox 94 10/05/23 10:01 Oxygen Delivery Method Room Air 10/05/23 10:01 BMI result Body Mass Index 21.7 Const General: cooperative, healthy appearing, comfortable and no acute distress Orientation/consciousness: patient oriented x3 Limitations: no limitations HEENT Head: Yes normal to inspection Ears: hearing grossly normal bilaterally, external ears normal, TM normal on the right and TM abnormal (Left) wth effusion and erythematous General nose exam: Normal external nose present, Normal nares present and No nasal discharge present Face and sinus: Yes normal facial exam and Yes sinus tenderness (Ethmoid) Mouth: Normal oral and palatal mucosa present and moist mucous membranes Throat: Yes tonsils normal, Yes uvula midline and Yes posterior oropharynx abnormal (Erythema) Eyes General: appearance normal, both eyes and all related structures Neck Neck: Yes normal visual inspection Resp Effort & Inspection: normal respiratory effort, able to speak in complete sentences, no respiratory distress, not tachypneic, no tripod positioning and no use of accessory muscles Auscultation: wheezes expiratory wheezes, inspiratory wheezes, scattered wheezes and throughout Cardio Rate: regular rate Rhythm: regular rhythm Heart sounds: normal S1 and S2 Skin General skin exam: no rashes or lesions noted Neuro General: patient oriented x3 Extrem General: Yes normal to inspection and Yes no clubbing, cyanosis or edema Assessment & Plan Assessment & Plan (1) COPD exacerbation: Code(s): J44.1 - Chronic obstructive pulmonary disease with (acute) exacerbation Plan: CXR showed no acute pulmonary disease. Sent prednisone burst, will have pt take 500mg azithromycin for 2 extra days this week (Today and , in addition to MWF) and may send Levaquin or Augmentin based on CXR read (2) Left otitis media with effusion: Code(s): H65.92 - Unspecified nonsuppurative otitis media, left ear Plan: see above (3) Sinusitis, acute ethmoidal: Code(s): J01.20 - Acute ethmoidal sinusitis, unspecified Qualifiers: Recurrence: non-recurrent Qualified Code(s): J01.20 - Acute ethmoidal sinusitis, unspecified Plan: Recommended supportive care with [id number] medications Plan see above Orders: Orders XR chest 2V Today R05.9 - Cough, unspecified Medications: New azithromycin please take on Wednesday and , in addition to your normal Wednesday, Wednesday, Wednesday dose 500 mg PO DAILY 2 tabs 0RF 2 days prednisone 50 mg PO DAILY 5 tabs 0RF Coding Level of Care Code New Pt Level 4 (67179) Diagnoses COPD exacerbation J44.1 Left otitis media with effusion H65.92 Acute non-recurrent ethmoidal sinusitis J01.20 Recurrence: non-recurrent
[2023-10-05 10:01] VITALS: BP 110/70; PULSE 94; TEMP 37.3; O2SAT 94; BMI 21.7
== END 2023-10-05 10:13 | disposition home or self-care (01) ==
PROVIDERS: PCP Internal Medicine; Visit Provider Physician Assistant
DX: J44.1 Chronic obstructive pulmonary disease with (acute) exacerbation (principal); H65.92 Unspecified nonsuppurative otitis media, left ear; J01.20 Acute ethmoidal sinusitis, unspecified
CPT/HCPCS: 99204

== ENCOUNTER 2023-10-05 10:13 | Outpatient (REF) | payer OTHER, SELFPAY ==
--- NOTE | ~2023-10-05 | XR_ITS ---
EXAMINATION: XR CHEST CLINICAL INFORMATION: Cough COMPARISON: 04/29/23 TECHNIQUE: 2 views of the chest were obtained. FINDINGS: No significant abnormality is noted involving the heart, lungs, mediastinum, bony thorax or soft tissues. Aortic calcification is seen along with a surgical clip in the gallbladder fossa. Rounded calcification overlying the area of the right supraspinatus tendon is again noted. XR/XR chest 2V IMPRESSION: No acute intrathoracic disease. Electronically signed by: Gage Alexander MD 10/05/2023 11:18 AM EDT
== END 2023-10-05 10:14 | disposition home or self-care (01) ==
LOC: HO.HMGCX 10:13
PROVIDERS: PCP Internal Medicine; Visit Provider Physician Assistant
DX: R05.9 Cough, unspecified (principal)
CPT/HCPCS: 71046

== ENCOUNTER 2023-12-02 10:18 | Outpatient (AMB) | payer OTHER, SELFPAY ==
--- NOTE | 2023-12-02 10:35 | AM.OFFWIN_ITS ---
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 While every effort has been made to ensure accuracy, knobber errors may have been included. The patient is a 58 year old female current smoker who presents to the clinic today with cough, chest tightness, and congestion for the past 2 days. She reports a longstanding history of COPD and follows a instructional support services director who was unable to see her today. She typically takes azithromycin prophylactically 3 times per week as well as roflumilast. She denies fever, chills. She does have dyspnea at rest and it is baseline +slightly more. She reports that she is getting up more secretions, they are thick, however they are clear. [facility] Social History Patient Tobacco Use Status: Current everyday Tobacco user Review of Systems Const All systems reviewed & are unremarkable except as noted in HPI and below Physical Exam Vital Signs: Last Vital Signs Pulse 72 12/02/23 11:03 BP 108/60 12/02/23 11:03 Pulse Ox 95 12/02/23 11:03 Oxygen Delivery Method Room Air 12/02/23 11:03 BMI result Body Mass Index 21.3 Const General: cooperative, healthy appearing, comfortable, no acute distress and well developed Orientation/consciousness: patient oriented x3 Limitations: no limitations HEENT Head: Yes normal to inspection Ears: hearing grossly normal bilaterally General nose exam: Normal external nose present Face and sinus: Yes normal facial exam Eyes General: appearance normal, both eyes and all related structures Neck Neck: Yes normal visual inspection and Yes full ROM Resp Effort & Inspection: normal respiratory effort and able to speak in complete sentences Auscultation: clear to auscultation bilaterally (Slightly decreased right lower lobe) Cardio Rate: regular rate Rhythm: regular rhythm Heart sounds: normal S1 and S2 Skin General skin exam: no rashes or lesions noted Neuro General: patient oriented x3 Results Reviewed Results Reviewed: XR images contemporaneously read by me without obvious pneumonia. Assessment & Plan Assessment & Plan (1) COPD exacerbation: Code(s): J44.1 - Chronic obstructive pulmonary disease with (acute) exacerbation Plan: History and physical examination consistent with COPD exacerbation. Patient to continue with her azithromycin which she takes prophylactically 3 days per week. We obtain a chest x-ray today that did not reflect signs of concern for pneumonia. We will follow the same treatment plan that she has been following with her instructional support services director including adding a prednisone burst for 5 days, and not making adjustments to her antibiotics at this time. Advised patient to follow up with worsening symptoms including increased shortness of breath, or failure to resolve either with the clinic, her primary care provider, or with her instructional support services director. Plan See above for full details and plan. Orders: Orders XR chest 2V Today J44.1 - Chronic obstructive pulmonary disease with (acute) exacerbation Medications: New prednisone 40 mg (2 x 20 mg) PO DAILY 5 days 10 tabs 0RF Coding Level of Care Code Est Pt Level 4 (86912) Diagnoses COPD exacerbation J44.1
[2023-12-02 11:03] VITALS: BP 108/60; PULSE 72; O2SAT 95; BMI 21.3
== END 2023-12-02 12:04 | disposition home or self-care (01) ==
PROVIDERS: PCP Internal Medicine; Visit Provider Registered Nurse
DX: J44.1 Chronic obstructive pulmonary disease with (acute) exacerbation (principal)

== ENCOUNTER → 2023-12-02 10:18 | Outpatient (BNVA) | payer OTHER, SELFPAY | PROVIDERS: PCP Internal Medicine ==

== ENCOUNTER 2023-12-02 11:16 | Outpatient (REF) | payer OTHER, SELFPAY ==
--- NOTE | ~2023-12-02 | XR_ITS ---
EXAMINATION: XR CHEST CLINICAL INFORMATION: Chronic obstructive pulmonary disease acute exacerbation. COMPARISON: Prior chest October 05, 2023. TECHNIQUE: 2 views of the chest were obtained. FINDINGS: No significant abnormality is noted involving the heart, lungs, mediastinum, bony thorax or soft tissues. Incidental note made of 2 areas of rounded calcification overlying the rotator cuff humeral head region unchanged. This can be associated with calcific tendinitis. Surgical clips right upper quadrant XR/XR chest 2V IMPRESSION: No acute disease. Electronically signed by: Darien Gamboa MD 12/02/2023 04:02 PM EDT RP
== END 2023-12-02 11:17 | disposition home or self-care (01) ==
LOC: HO.HMGCX 11:16
PROVIDERS: PCP Internal Medicine; Visit Provider Registered Nurse
DX: J44.1 Chronic obstructive pulmonary disease with (acute) exacerbation (principal)
CPT/HCPCS: 71046; 99212

== ENCOUNTER 2024-01-18 11:47 | Outpatient (AMB) | payer OTHER, SELFPAY ==
--- NOTE | 2024-01-18 12:03 | MHC.OFFWIV ---
Intake Vital Signs 01/18/24 12:18 Weight 127 lb 6 oz BP 128/76 Blood Pressure Location Lt brachial Position Sitting Pulse 75 Pulse Source Pulse Oximeter Pulse Oximetry (%) 96 Oxygen Delivery Method Room Air Intake Visit Reasons: EP-copd, sob, cough,chest tightness and congestion Patient Tobacco Use Status: Current everyday Tobacco user Allergies buprenorphine [From SUBOXONE] Allergy (Severe, Verified 12/02/23 11:03) ANAPHYLAXIS naloxone [From SUBOXONE] Allergy (Severe, Verified 12/02/23 11:03) ANAPHYLAXIS NSAIDS (Non-Steroidal Anti-Inflamma [Nsaids] Allergy (Unknown, Verified 12/02/23 11:03) RASH, ITCHING HPI HPI Comments History of Present Illness Details This is a 58-year-old female with a past medical history of COPD not currently oxygen dependent and a current tobacco user, presenting for evaluation of chest congestion, sinus congestion and a sore throat that has been ongoing for the past 3 days. Patient denies having any fevers or chills and describes having chest tightness but only when she feels short of breath. Patient has no chest pain at this time and denies any chest pain with exertion. Patient has been using her nebulizer at home and her albuterol inhaler up to 3 times daily. [facility] Social History Patient Tobacco Use Status: Current everyday Tobacco user Review of Systems Const All systems reviewed & are unremarkable except as noted in HPI and below Denies chills, Denies fatigue and Denies fever(s) Eyes Reports no additional complaints ENT Denies otalgia, Reports sinus pressure, Reports sore throat and Denies throat swelling Card Reports no additional complaints, Reports chest pain ( tightness lasting minutes only; no chest pain at this time) and Reports dyspnea Resp Reports no additional complaints, Reports chest congestion, Reports cough, Reports dyspnea and Reports wheezing GI Reports as per HPI, Denies nausea and Denies vomiting Reports no additional complaints Musc Reports no additional complaints Skin/Breast Reports system reviewed and no additional complaints, except as documented Neuro Reports no additional complaints Psych Reports no additional complaints Endo Reports no additional complaints and Denies fatigue Aller/Immun Denies throat swelling and Reports wheezing Physical Exam Const General: cooperative, comfortable, well developed, alert, awake and Physically active; No acute distress or lethargic Nutritional Appearance: average body habitus Orientation/consciousness: patient oriented x3 and No lethargic Limitations: no limitations HEENT Head: Yes normal to inspection and Yes normocephalic Ears: hearing grossly normal bilaterally, external ears normal, TM's normal bilaterally and EAC's normal General nose exam: Normal external nose present Face and sinus: Yes normal facial exam Mouth: Normal oral and palatal mucosa present and moist mucous membranes Teeth and gingiva: dentition normal Throat: Yes posterior oropharynx normal and No postnasal drainage Eyes General: appearance normal, both eyes and all related structures Conjunctivae: conjunctivae normal EOM: EOMs intact bilaterally Neck Lymphatic: no lymphadenopathy noted Resp Effort & Inspection: normal respiratory effort, able to speak in complete sentences, normal respiratory pattern, audible wheezes, Actively coughing, no respiratory distress, not tachypneic and no tripod positioning Auscultation: wheezes and diminished lung sounds on the right in the lower lung nuñez Cardio Rate: regular rate Rhythm: regular rhythm GI Inspection: Yes normal to inspection Palpation (GI): Soft to palpation, nontender and no guarding Auscultation: normal bowel sounds Skin General skin exam: no rashes or lesions noted Neuro General: patient oriented x3 Psych Appearance: grossly normal Mental Status: mental status grossly normal Insight: Good insight present (Psych) Judgement: Good judgement present (Psych) Results Reviewed Results Reviewed: EKG NSR 66bpm Assessment & Plan Assessment & Plan (1) COPD exacerbation: Comment: Patient's oxygenation is 96% on examination without tachypnea however patient is wheezing despite use of albuterol. Code(s): J44.1 - Chronic obstructive pulmonary disease with (acute) exacerbation Plan: Short course of prednisone burst therapy 40 mg daily x5 days (2) Chest tightness: Comment: Patient is chest pain-free at this time. EKG reveals normal sinus rhythm at a rate of 66 beats per minute. There are no ischemic changes. Code(s): R07.89 - Other chest pain Plan: I have advised this patient to go to the emergency department for a chest pain ACS rule out immediately, however she is declining this currently. Patient states she has felt this chest tightness before and will go to the ED if the character of pain changes. Medications: New prednisone 40 mg (2 x 20 mg) PO DAILY 10 tabs 0RF Coding Level of Care Code Est Pt Level 4 (96392) Diagnoses COPD exacerbation J44.1 Chest tightness R07.89 Time Spent (min) 35
[2024-01-18 12:18] VITALS: BP 128/76; PULSE 75; O2SAT 96
== END 2024-01-18 13:05 | disposition home or self-care (01) ==
PROVIDERS: PCP Internal Medicine; Visit Provider Physician Assistant
DX: J44.1 Chronic obstructive pulmonary disease with (acute) exacerbation (principal); R07.89 Other chest pain

== ENCOUNTER → 2024-01-18 11:47 | Outpatient (BNVA) | payer OTHER, SELFPAY | PROVIDERS: PCP Internal Medicine; Visit Provider Physician Assistant | DX: J44.1 Chronic obstructive pulmonary disease with (acute) exacerbation (principal); R07.89 Other chest pain | CPT/HCPCS: 93005; 99212 ==

== ENCOUNTER 2024-01-24 11:13 | Outpatient (REF) | payer OTHER, SELFPAY ==
[2024-01-24 14:21] LABS: Influenza A PCR NEGATIVE (Negative); Influenza B PCR NEGATIVE (Negative); Resp Syncy Virus RNA Qual PCR NEGATIVE (Negative); SARS COV2 PCR INHOUSE POSITIVE (Negative)
== END 2024-01-24 11:14 | disposition home or self-care (01) ==
LOC: HO.LAB 11:13
PROVIDERS: PCP Internal Medicine; Visit Provider Physician Assistant
DX: J06.9 Acute upper respiratory infection, unspecified (principal); J45.41 Moderate persistent asthma with (acute) exacerbation; R05.9 Cough, unspecified
CPT/HCPCS: 0241U; 71046; 99202

== ENCOUNTER 2024-01-24 11:13 | Outpatient (AMB) | payer OTHER, SELFPAY ==
[2024-01-24 11:15] VITALS: BP 138/76; PULSE 91; TEMP 36.1; O2SAT 96; BMI 22.0
--- NOTE | 2024-01-24 11:15 | MHC.OFFWIV ---
Intake Vital Signs 01/24/24 11:15 Height 5 ft 3.5 in Weight 126 lb 6 oz BMI 22.0 BP 138/76 Blood Pressure Location Lt brachial Position Sitting Pulse 91 Pulse Source Pulse Oximeter Temp 97.0 F Temp Source Temporal Artery Scan Pulse Oximetry (%) 96 Oxygen Delivery Method Room Air Intake Visit Reasons: EP Sneezing, fever, Congestion SOB due to Cough Intake Note: Pt presents to the office today for c/o sneezing, fever, congestion, cough, SOB x3 days. Patient Tobacco Use Status: Current everyday Tobacco user Allergies buprenorphine [From SUBOXONE] Allergy (Severe, Verified 01/24/24 11:18) ANAPHYLAXIS naloxone [From SUBOXONE] Allergy (Severe, Verified 01/24/24 11:18) ANAPHYLAXIS NSAIDS (Non-Steroidal Anti-Inflamma [Nsaids] Allergy (Unknown, Verified 01/24/24 11:18) RASH, ITCHING HPI HPI Comments History of Present Illness Details History The patient is a 58-year-old female presenting with an acute exacerbation of chronic obstructive pulmonary disease (COPD) and possible acute upper respiratory infection x 10 days. She reported that she started experiencing more pronounced shortness of breath, sneezing, nasal congestion, and a low-grade fever approximately a week and a half ago. Her highest recorded fever was 99.3?F. She was seen a week ago with mild symptoms and was prescribed a short course of prednisone (40 mg for 5 days), which provided initial relief. Despite completing the prednisone course 2 days ago, the patient reports persistent and worsening symptoms, including wheezing and increased difficulty breathing. She has been taking azithromycin prophylactically on Wednesday, Wednesday, and Wednesday as part of her routine COPD management. This medication schedule was temporarily modified in September, with doses added on Tuesdays and alongside a previous prednisone treatment. The patient has no known allergies to antibiotics and has a history of undergoing chest X-rays. Physical Exam General: Cooperative, healthy appearing, comfortable and no acute distress Orientation/consciousness: Patient oriented x3 Limitations: No limitations Head: Normal to inspection Ears: Hearing grossly normal bilaterally, external ears normal and TM's normal bilaterally Nose: Normal external nose present, Normal nares present and No nasal discharge present Face and sinus: Normal facial exam and Yes sinuses nontender Mouth: Normal oral and palatal mucosa present and moist mucous membranes Throat: Yes tonsils normal, Yes uvula midline. Posterior oropharynx erythema Eyes: Appearance normal, both eyes and all related structures Neck: Normal visual inspection Respiratory: vesicular lung sounds with exp wheezes bilaterally. Normal respiratory effort, able to speak in complete sentences, Actively coughing, no respiratory distress, not tachypneic, no tripod positioning and no use of accessory muscles. Cardiovascular: Regular rate and rhythm. Normal S1 and S2 Skin: No rashes or lesions noted Neuro: Patient oriented x3 Extremities: Normal to inspection and Yes no clubbing, cyanosis or edema [facility] Social History Patient Tobacco Use Status: Current everyday Tobacco user Review of Systems Const All systems reviewed & are unremarkable except as noted in HPI and below Physical Exam Vital Signs: Last Vital Signs Temp 97.0 F 01/24/24 11:15 Pulse 91 01/24/24 11:15 BP 138/76 01/24/24 11:15 Pulse Ox 96 01/24/24 11:15 Oxygen Delivery Method Room Air 01/24/24 11:15 BMI result Body Mass Index 22.0 Assessment & Plan Assessment & Plan (1) Asthmatic bronchitis: Code(s): J45.909 - Unspecified asthma, uncomplicated Qualifiers: Asthma severity: moderate Asthma persistence: persistent Asthma complication type: with acute exacerbation Qualified Code(s): J45.41 - Moderate persistent asthma with (acute) exacerbation Plan: Plan - Test for flu, COVID-19, and RSV with a nasal swab, with results expected later today. - Prescribe a tapering regimen of prednisone as pt was just on a burst that she completed 2 days ago - Supplement prophylactic azithromycin course for this week: Wednesday through Wednesday, added 2 days (, ) as pt takes it MWF ppx. - Possibly treat with Augmentin, considering the possibility of a bacterial infection due to worsening symptoms. - Frequent use of nebulizers recommended around the clock: three times daily, even if not feeling symptomatic, to manage airway patency. - Prompt imaging with a chest X-ray to evaluate further for possible complications or progression of underlying lung conditions. Pending evaluation, further instructions will be given based on test results. - Patient advised to seek further medical care if symptoms persist, worsen, or new symptoms develop such as increased fever or respiratory distress. Patient was informed and verbally consented to the use of an ambient scribe for clinic note documentation during this visit Orders: Orders SARS-CoV2/FLU/RSV Today J06.9 - Acute upper respiratory infection, unspecified XR chest 2V Today R05.9 - Cough, unspecified Medications: New azithromycin Take on Wednesday and this week 250 mg PO 2XW 2 days 2 tabs 0RF prednisone take 4 tablets on days 1-2, take 3 tablets on days 3-4, take 2 tablets on days 5-6, take 1 tablet on days 7-8. 10 mg PO DIRECTED 20 tabs 0RF Coding Level of Care Code New Pt Level 4 (95841) Diagnoses Moderate persistent asthmatic bronchitis with acute exacerbation J45.41 Asthma severity: moderate Asthma persistence: persistent Asthma complication type: with acute exacerbation
== END 2024-01-24 12:22 | disposition home or self-care (01) ==
PROVIDERS: PCP Internal Medicine; Visit Provider Physician Assistant
DX: J45.41 Moderate persistent asthma with (acute) exacerbation (principal)

== ENCOUNTER 2024-01-24 11:37 | Outpatient (REF) | payer OTHER, SELFPAY ==
--- NOTE | ~2024-01-24 | XR_ITS ---
EXAMINATION: XR CHEST CLINICAL INFORMATION: R05.9 - Cough, unspecified COMPARISON: X-ray 12/02/2023 TECHNIQUE: 2 views of the chest were obtained. FINDINGS: The cardiomediastinal silhouette is within normal limits. The lungs are well expanded. Mild central bronchial wall thickening. There is no focal consolidation, edema, or effusion. No pneumothorax. No acute osseous abnormality. Similar calcification adjacent to the humeral head, could reflect calcific tendinitis. Additional calcification seen adjacent to the coracoid process,, could reflect a loose body. XR/XR chest 2V IMPRESSION: Bronchial wall thickening could reflect small airway disease. Electronically signed by: Rod Rogers MD 01/24/2024 03:51 PM EST
== END 2024-01-24 11:38 | disposition home or self-care (01) ==
LOC: HO.HMGCX 11:37
PROVIDERS: PCP Internal Medicine; Visit Provider Physician Assistant
DX: Z13.89 Encounter for screening for other disorder (principal)
CPT/HCPCS: 71046

== ENCOUNTER 2024-02-16 10:37 | Outpatient (AMB) | payer OTHER, SELFPAY ==
--- NOTE | 2024-02-16 10:45 | MHC.OFFWIV ---
Intake Vital Signs 02/16/24 10:49 Weight 126 lb BP 108/70 Blood Pressure Location Rt brachial Position Sitting Pulse 102 H Pulse Source Pulse Oximeter Temp 99.6 F Temp Source Oral Pulse Oximetry (%) 94 Oxygen Delivery Method Room Air Intake Visit Reasons: EP COPD stg 3, SOB, weak,fatigue Intake Note: Patient here for Fatigue, SOB, cough,fever that has been present for about 3-4 days Patient Tobacco Use Status: Current everyday Tobacco user Allergies buprenorphine [From SUBOXONE] Allergy (Severe, Verified 02/16/24 10:48) ANAPHYLAXIS naloxone [From SUBOXONE] Allergy (Severe, Verified 02/16/24 10:48) ANAPHYLAXIS NSAIDS (Non-Steroidal Anti-Inflamma [Nsaids] Allergy (Unknown, Verified 02/16/24 10:48) RASH, ITCHING Do you need a note to return to daycare/school/sports/work: No HPI HPI Comments History of Present Illness Details Patient is a 58-year-old female with a past medical history of COPD stage III complaining of shortness of breath, fevers and a cough for the last 4 days. Tmax 101.1F. She states she feels like she got hit by a [employer] truck . Shortness of breath with walking. Current smoker. Taking COPD medications as prescribed, increased use of albuterol inhaler. Using Vicks, nyquil and tylenol. Covid negative at home yesterday. Denies sick contacts at home. 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 [facility] Social History Patient Tobacco Use Status: Current everyday Tobacco user Review of Systems Const All systems reviewed & are unremarkable except as noted in HPI and below Physical Exam Vital Signs: Last Vital Signs Temp 99.6 F 02/16/24 10:49 Pulse 102 H 02/16/24 10:49 BP 108/70 02/16/24 10:49 Pulse Ox 94 02/16/24 10:49 Oxygen Delivery Method Room Air 02/16/24 10:49 Const General: cooperative, healthy appearing, comfortable and no acute distress Orientation/consciousness: patient oriented x3 Limitations: no limitations HEENT Head: Yes normal to inspection Ears: hearing grossly normal bilaterally, external ears normal and TM's normal bilaterally General nose exam: Normal external nose present, Normal nares present and No nasal discharge present Face and sinus: Yes normal facial exam and Yes sinuses nontender Mouth: Normal oral and palatal mucosa present and moist mucous membranes Throat: Yes tonsils normal, Yes uvula midline and Yes posterior oropharynx abnormal (Erythema) Eyes General: appearance normal, both eyes and all related structures Neck Neck: Yes normal visual inspection Resp Effort & Inspection: normal respiratory effort, able to speak in complete sentences, Actively coughing, no respiratory distress, not tachypneic, no tripod positioning and no use of accessory muscles Auscultation: clear to auscultation bilaterally (Dim) Cardio Rate: regular rate Rhythm: regular rhythm Heart sounds: normal S1 and S2 Skin General skin exam: no rashes or lesions noted Neuro General: patient oriented x3 Extrem General: Yes normal to inspection and Yes no clubbing, cyanosis or edema Assessment & Plan Assessment & Plan (1) Lower respiratory infection (e.g., bronchitis, pneumonia, pneumonitis, pulmonitis): Code(s): J22 - Unspecified acute lower respiratory infection Plan: Vital signs are stable and lung sounds are clear though a little dim, however with patient's advanced COPD, we will add 3 days of 500 mg azithromycin, a low-dose steroid and Tessalon Perles to be used at night. I did order a chest x-ray, however, as discussed with the patient, I do not think she needs to get that done today. Should her symptoms become worse in the next day or 2, she should just get the chest x-ray done. This is to avoid her having to be evaluated again. I told her I would prescribe antibiotics for pneumonia based on the chest x-ray result, if it is done in the next few days. Orders: Orders XR chest 2V Today R05.9 - Cough, unspecified SARS-CoV2/FLU/RSV Today J22 - Unspecified acute lower respiratory infection Medications: New benzonatate 200 mg PO TID PRN 10 caps 0RF cough azithromycin (2 x 250 mg) 500 mg orally; 3 days 6 tabs 0RF prednisone 20 mg PO QAM 5 tabs 0RF Coding Level of Care Code New Pt Level 4 (11888) Diagnoses Lower respiratory infection (e.g., bronchitis, pneumonia, pneumonitis, pulmonitis) J22
[2024-02-16 10:49] VITALS: BP 108/70; PULSE 102; TEMP 37.6; O2SAT 94
== END 2024-02-16 11:19 | disposition home or self-care (01) ==
PROVIDERS: PCP Internal Medicine; Visit Provider Physician Assistant
DX: J22 Unspecified acute lower respiratory infection (principal)

== ENCOUNTER 2024-02-16 10:37 | Outpatient (REF) | payer OTHER, SELFPAY ==
[2024-02-16 14:23] LABS: Influenza A PCR POSITIVE (Negative); Influenza B PCR NEGATIVE (Negative); Resp Syncy Virus RNA Qual PCR NEGATIVE (Negative); SARS COV2 PCR INHOUSE NEGATIVE (Negative)
== END 2024-02-16 10:38 | disposition home or self-care (01) ==
LOC: HO.LAB 10:37
PROVIDERS: PCP Internal Medicine; Visit Provider Physician Assistant
DX: J44.0 Chronic obstructive pulmonary disease with (acute) lower respiratory infection (principal); J22 Unspecified acute lower respiratory infection; R05.9 Cough, unspecified
CPT/HCPCS: 0241U; 99212

== ENCOUNTER 2024-05-10 11:24 | Outpatient (AMB) | payer OTHER, SELFPAY ==
--- NOTE | 2024-05-10 11:38 | MHC.OFFWIV ---
Intake Vital Signs 05/10/24 11:39 Weight 120 lb BP 128/74 Blood Pressure Location Rt brachial Position Sitting Pulse 74 Pulse Source Pulse Oximeter Pulse Oximetry (%) 96 Oxygen Delivery Method Room Air Intake Visit Reasons: EP RT eye concerns Intake Note: Patient here for right eyebrow pain that has been present for about 1 week. Patient Tobacco Use Status: Current everyday Tobacco user Allergies buprenorphine [From SUBOXONE] Allergy (Severe, Verified 05/10/24 11:40) ANAPHYLAXIS naloxone [From SUBOXONE] Allergy (Severe, Verified 05/10/24 11:40) ANAPHYLAXIS NSAIDS (Non-Steroidal Anti-Inflamma [Nsaids] Allergy (Unknown, Verified 05/10/24 11:40) RASH, ITCHING Medication List - Last Reconciled 05/10/24 by Keshia Harvey MD albuterol sulfate 90 mcg/actuation (Ventolin HFA) 1 inh inhalation QID PRN albuterol sulfate 2.5 mg (3 mL) inhalation QID PRN colestipol 1 g PO BID esomeprazole magnesium mg PO grsdkmjfcmn-vnavtwfct-xvskhtvu 200-62.5-25 mcg (Trelegy Ellipta) 1 ea inhalation DAILY ondansetron mg PO roflumilast mcg PO sertraline 100 mg PO BID sucralfate 1 g PO TID trazodone 100 mg PO BEDTIME Do you need a note to return to daycare/school/sports/work: No HPI EP RT eye concerns HPI Details History painful lump right eye brow for past 5 days sometimes get better with warm compression but then comes back no vision problem, no discharge from eyes Patient is on azithromycin chronically due to 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 - Continue using warm compresses on the affected area to alleviate symptoms. - Monitor the condition of the abscess for any changes or developments. Follow up with your primary care physician, Dr. Eric Sawyer, if the abscess does not improve. - tetnus was last administered in 2017. vaccine given today Review of Systems - General: No fever no chills - Neurological: No headaches no dizziness - Ear nose throat: No sore throat no hearing difficulty no ear pain - Cardiovascular: No syncope, no chest pain, no palpitations - Gastrointestinal: No nausea vomiting or diarrhea - Endocrine: No polyuria polydipsia no heat intolerance - Genitourinary: No dysuria , no blood in urine Physical Exam General: No acute distress HEENT: Lump on right eyebrow, red and swollen, eye itself looks fine Neck: Supple Respiratory system: Able to talk in full sentences, no audible wheeze Cardiovascular: S1-S2 regular in rate and rhythm Gastrointestinal: No pain Extremities: No new findings 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 awake oriented x3 motor sensory intact Skin: Normal turgor, skin infection on right eyebrow PFSH Social History Patient Tobacco Use Status: Current everyday Tobacco user Physical Exam Vital Signs: Last Vital Signs Pulse 74 05/10/24 11:39 BP 128/74 05/10/24 11:39 Pulse Ox 96 05/10/24 11:39 Oxygen Delivery Method Room Air 05/10/24 11:39 Immunizations Boostrix Tdap 2.5 Lf unit-8 mcg-5 Lf/0.5 mL intramuscular syringe Performing Provider: Keshia Harvey MD Performing Location: [facility] [place] [facility] Administered by: ÁNGELA Rodriguez on 05/10/24 12:09 Dose Route Admin Location Dispensed Lot Number Expiration Date [employer] 0.5 mL IM Right Deltoid 0.5 mL [id number] 05/27/26 82974-746-38 [employer] VIS Given Date VIS Provided VIS Publication Date 05/10/24 Single Vaccine 20 Eligibility Eligibility Date Funding Source Not [place] Eligible 05/10/24 Private Assessment & Plan Assessment & Plan (1) Skin infection: Code(s): L08.9 - Local infection of the skin and subcutaneous tissue, unspecified Plan History painful lump right eye brow for past 5 days sometimes get better with warm compression but then comes back no vision problem, no discharge from eyes Patient is on azithromycin chronically due to 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 - Continue using warm compresses on the affected area to alleviate symptoms. - Monitor the condition of the abscess for any changes or developments. Follow up with your primary care physician, Dr. Eric Sawyer, if the abscess does not improve. - tetnus was last administered in 2017. vaccine given today Medications: New amoxicillin-pot clavulanate 500-125 mg 1 tab PO Q12H 20 tabs 0RF 10 days Coding Level of Care Code Est Pt Level 3 (93276) Diagnoses Skin infection L08.9
[2024-05-10 11:39] VITALS: BP 128/74; PULSE 74; O2SAT 96
--- OUTSIDE RECORDS SUMMARY | 2024-05-10 13:57 | XMS_ITS | Clinical Summary ---
Author Organization [facility] Address [address] [place] [address] Phone Care Team Providers Care Stunt Woman Name Role Phone Eric Sawyer MD Primary Care Provider [phone] Allergies Active Allergy Reactions Criticality Noted Date Comments Covid-19 Vaccine, Bivalent, Mrna (Moderna) Anaphylaxis High 10/31/2020 Tongue swelling - tx'd in ED Ibuprofen Hives 02/20/2024 Lamotrigine 02/20/2024 Rash Morphine Nausea And Vomiting 02/20/2024 Nsaids (Non-Steroidal Anti-Inflammatory Drug) 03/29/2015 hives Medications colestipoL (COLESTID) 5 gram packet Take 5 g by mouth 2 (two) times a day. 11/04/19 24 025 Active traZODone (DESYREL) 100 mg tablet Take 1 tablet (100 mg total) by mouth at bedtime. 12/09/19 22 Active ondansetron ODT (ZOFRAN-ODT) 4 mg disintegrating tablet Take 1 tablet (4 mg total) by mouth every 8 (eight) hours if needed for nausea. 30 tablet 3 01/12/20 24 Active sertraline (ZOLOFT) 100 mg tabletIndications: anxiety with depression Take 2 tablets (200 mg total) by mouth 1 (one) time each day. Active ipratropium-albute roL (DUONEB) 0.5-2.5 mg/3 mL nebulizer solution Take 3 mL by nebulization 4 (four) times a day for 10 days. 120 mL 02/20/19 25 Active colestipoL (COLESTID) 1 gram tablet TAKE 1 TABLET BY MOUTH 3 TIMES DAILY (WITH MEALS) 270 tablet 1 03/21/19 25 Active Hospital, Clinic, or Other Facility Administered Medication Ordered Dose Route Frequency Start Date End Date Status triamcinolone acetonide (KENALOG-40) 40 mg/mL injection 40 mgIndications:Medial epicondylitis of elbow, left 40 mg OTHER Once PRN Procedure 04/14/2024 04/14/2024 Ended Active Problems Problem Noted Date Diagnosed Date COPD exacerbation 02/20/2024 Medial epicondylitis of elbow, right 01/25/2023 Calcification of left hand joint 10/07/2022 Left carpal tunnel syndrome 10/07/2022 Medial epicondylitis of elbow, left 10/07/2022 Stage 2 moderate COPD by GOLD classification 10/2021 Overview (11/26/2023): Last Assessment & Plan: Stage II COPD. Advised to quit smoking. 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 Mixed hyperlipidemia 01/07/2021 Precordial pain 01/07/2021 Allergic reaction to vaccine 10/31/2020 Gastroesophageal reflux disease without esophagi tis 11/23/2018 Opiate dependence 08/31/2016 Anxiety 03/29/2015 Asthma 03/29/2015 Encounters Date Type Department Care Team Description 04/14/2024 9:15 AM EST Office Visit Orthopedic Surgery - [place] [address] [facility] [address] [place] [address] Leanne Todd MD Medial epicondylitis of elbow, left (Primary Dx) 02/23/2024 9:44 AM EST - 02/23/2024 11:59 PM EST Hospital Encounter Radiology Department [address] [address] Elevated pancreatic enzyme Discharge Disposition: Home or Self Care 02/20/2024 4:37 PM EST - 02/21/2024 6:05 PM EST Hospital Encounter [facility] [address] [place] [address] Edvin Cho MD Seralathan, Manikandan, MD Bell, Alistair A, MD Shortness of breath (Primary Dx); COPD exacerbation (CMS/HCC); Abdominal pain, epigastric Discharge Disposition: Home or Self Care 02/10/2024 5:14 PM EST - 02/11/2024 6:18 AM EST Emergency [facility] [address] [place] [address] Discharge Disposition: Left Against Medical Advice 02/10/2024 Telephone Gastroenterology - [place] [address] [facility] [address] [facility] [address] [place] [address] Kacey Christianson PA provider call back from Last 3 Months Immunizations Name Administration Dates Next Due Influenza Quadravalent, MDCK , 0.5ml, preservative free (Flucelvax) 6mo and older 10/31/2020 Influenza Quadravalent, MDCK , 0.5ml, with preservative (Flucelvax) 6mo and older 11/03/2016 Influenza trivalent, 0.5mL, preservative free (Fluarix; FluLaval; Fluzone) ages 6mo and older (Afluria) 3 years and older 11/11/2015 Influenza, Unspecified 11/20/2021 Moderna SARS-CoV-2 COVID-19, mRNA, LNP-S, preservative free 03/01/2021 Pfizer SARS-CoV-2 COVID-19, mRNA, LNP-S, preservative free 05/29/2020,05/06/2020 Pneumococcal conjugate 13 va lent (Prevnar 13, PCV13) 2mo and older 11/11/2015 Pneumococcal polysaccharide 23 valent (Pneumovax 23) 2yo and older 02/10/2019 Surgical History Surgery Date Site/Laterality Comments OTHER SURGICAL HISTORY PROCEDURE: HYSTEROSCOPY, DIAGNOSTIC CHOLECYSTECTOMY 08/31/2016 PROCEDURE: HISTORICAL CHOLECYSTECTOMY; COMMENT: [facility] LIPOMA RESECTION 04/11/2020 Right PROCEDURE: SKIN TISSUE EXCISION(LIPOMA); COMMENT: excision of an 8cm x 7cm x 3cm subcutaneous lipoma on the right upper back - by Dr. 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 Left carpal tunnel syndrome Medial epicondylitis of left elbow Epicondylitis elbow, medial, right Hyperlipidemia Precordial pain Family History Medical History Relation Name Comments Breast cancer Aunt 1 mat aunt Other: cancer ovarian Aunt 1 mat aunt father 's side Breast cancer Aunt 2 pat aunt Breast cancer Other p.cousin Breast cancer Sister 1 dx;d 40s Relation Name Status Comments Aunt 1 mat aunt Aunt 2 pat aunt Brother Alive Father Mother Other p.cousin Alive Sister 1 dx;d 40s Alive Sister 2 Alive Social History Tobacco Use Types Packs/Day Years Used Date Smoking Tobacco: Every Day Cigarettes Smokeless Tobacco: Current Alcohol Use Standard Drinks/Week Comments Not Currently 0 (1 standard drink = 0.6 oz pur e alcohol) Comments No Sex and Gender Information Value Date Recorded Sex Assigned at Not on file Legal Sex Female 2:37 AM EST Gender Identity Not on file Sexual Orientation Not on file Obstetrics History Last Filed Vital Signs Vital Sign Reading Time Taken Comments Blood Pressure 111/77 02/21/2024 5:39 PM EST Pulse 102 02/21/2024 5:39 PM EST Temperature 37.1 ??C (98.8 ??F) 02/21/2024 5:39 PM ES T Respiratory Rate 18 02/21/2024 5:39 PM EST Oxygen Saturation 90% 02/21/2024 5:39 PM EST Inhaled Oxygen Concentration - - Weight 54.4 kg (120 lb) 04/14/2024 9:31 AM EST Height 160 cm (5' 3 ) 04/14/2024 9:31 AM EST Body Mass Index 21.26 04/14/2024 9:31 AM EST Plan of Treatment Health Maintenance Due Date Last Done Comments Hepatitis B Vaccines (1 of 3 - 19+ 3-dose series) 1985 Cervical Cancer Screening: Pap Smear 08/14/1987 Zoster Vaccines (1 of 2) 2016 Depression Screening 01/17/2022 HIV Screening 01/17/2022 Hepatitis C Screening 01/17/2022 Medicare Annual Wellness Visit 01/17/2022 Social Influencers of Health Screening 01/17/2022 Breast Cancer Screening 05/09/2023 05/09/19, 01/16/2020, 07/23/2017 COVID-19 Vaccine ( season) 2023 03/01/2021, 05/29/2020, 05/06/2020 Influenza Vaccine (#1) 2023 , 10/31/2020, 11/03/2016, Additional history exists DTaP,Tdap,and Td Vaccines (2 - Td or Tdap) 01/14/2024 01/13/2014 Pneumococcal Vaccine: 50+ Years (3 of 3 - PCV20 or PCV21) 02/11/2024 02/10/2019, 11/11/2015, 06/02/2011 Pneumococcal Vaccine: Pediatrics (0 to 5 Years) and At-Risk Patients (6 to 64 Years) (3 of 3 - PCV20 or PCV21) 02/11/2024 02/10/2019, 11/11/2015, 06/02/2011 Colorectal Cancer Screening: Colonoscopy 11/07/2025 11/08/2023 Cholesterol Screening (Lipid Panel) 12/02/2025 12/02/2020 HIB Vaccines Aged Out No longer eligi ble based on patient's age to complete this topic HPV Vaccines Aged Out No longer eligi ble based on patient's age to complete this topic Hepatitis A Vaccines Aged Out No long er eligible based on patient's age to complete this topic IPV Vaccines Aged Out No longer eligi ble based on patient's age to complete this topic MMR Vaccines Aged Out No longer eligi ble based on patient's age to complete this topic Meningococcal ACWY Vaccine Aged Out N o longer eligible based on patient's age to complete this topic Meningococcal B Vacine Aged Out No lo nger eligible based on patient's age to complete this topic RSV Immunization Patients Under 20 months Aged Out No longer eligible based on patient's age to complete this topic Varicella Vaccines Aged Out No longer eligible based on patient's age to complete this topic Procedures Procedure Name Priority Date/Time Associated Diagnosis Comments INJECTION TENDON OR LIGAMENT Routine 04/14/2024 9:15 AM EST Medial epicondylitis of elbow, left MR ABDOMEN WO AND W CONTRAST MRCP Routine 02/23/2024 10:34 AM EST Elevated pancreatic enzyme CBC WITH AUTO DIFFERENTIAL Routine 02/21/2024 5:13 AM EST TRIGLYCERIDES STAT 02/21/2024 5:13 AM EST CBC AND DIFFERENTIAL Routine 02/21/2024 5:13 AM EST LIPASE Routine 02/21/2024 5:13 AM EST OXYGEN THERAPY, ADULT Routine 02/21/2024 12:54 AM EST OXYGEN THERAPY, ADULT Routine 02/21/2024 12:[address] ANGIO CHEST WO AND/OR W CONTRAST Routine 02/20/2024 9:01 PM EST Shortness of breath VENOUS BLOOD GAS STAT 02/20/2024 8:[address] ABDOMEN PELVIS W CONTRAST STAT 02/20/2024 6:26 PM EST RESPIRATORY VIRUS PANEL MOLECULAR STUDY STAT 02/20/2024 5:39 PM EST CBC WITH AUTO DIFFERENTIAL STAT 02/20/2024 12:01 PM EST LIPASE STAT 02/20/2024 12:01 PM EST COMPREHENSIVE METABOLIC PANEL STAT 02/20/2024 12:01 PM EST CBC AND DIFFERENTIAL STAT 02/20/2024 12:01 PM EST EXTERNAL CLINICAL LAB 02/17/2024 CBC WITH AUTO DIFFERENTIAL STAT 02/10/2024 5:25 PM EST LIPASE STAT 02/10/2024 5:25 PM EST COMPREHENSIVE METABOLIC PANEL STAT 02/10/2024 5:25 PM EST CBC AND DIFFERENTIAL STAT 02/10/2024 5:25 PM EST HM COLONOSCOPY Routine 11/08/2023 SCREENING MAMMOGRAPHY BI 2-VIEW BREAST INC CAD Routine 05/08/2021 1:42 PM EDT Encounter for screening mammogram for malignant neoplasm of breast LIPID PANEL Routine 12/02/2020 from Last 3 Months or Most Recently Relevant to Health Maintenance Results * Injection tendon or ligament: L elbow (04/14/2024 9:15 AM EST) Leanne Vasquez MD - 04/14/2024 9:15 AM EST Leanne Todd MD ? 04/14/2024 ??4:40 PM Injection tendon or ligament: L elbow for medial epicondylitis Indications: pain Details: 25 G needle, medial approach Medications: 40 mg triamcinolone acetonide 40 mg/mL Patient's medial left elbow was confirmed and the site prepped with Betadine and alcohol. ??I marked the site of maximal tenderness. ??I then injected 1/2 cc of lidocaine 1% with epinephrine just on the skin. ??I then prepped the area again. ??I then injected the 40 mg of Kenalog at the medial condyle extensor origin. ??Patient tolerated this well and a Band-Aid was applied. ??Patient was advised to apply ice to the area if it is sore later and hopefully it will work within the next couple of days. Informed Consent: ??Laterality: ??Left ??Relevant images/test results available and reviewed: yes ?Procedure/treatment, purpose, treatment alternatives, risks/potential complications and benefits explained: yes ?Risk/complications/benefits details: ??Patient informed that this shot may not help but sometimes does not, sometimes there can be reactions the meds. ??Occasionally some skin lightening or tissue degradation. ??Patient questions answered: yes ?Patient agrees, verbalizes understanding, and wants to proceed: yes ?Consent given by: ??Patient ??Informed consent discussion completed by Physician/ELSIE with patient: ?? Verbal ??Pre-procedure timeout performed: yes ?? us Leanne Todd MD IN CLINIC/BEDSIDE ORDERABLES Final Result * MR Abdomen wo and w Contrast MRCP (02/23/2024 10:34 AM EST) Anatomical Region Laterality Modality Body Magnetic Resonan ce 02/23/2024 5:24 PM EST Narrative 02/23/2024 9:41 PM EST MRI of the abdomen without and with intravenous contrast. History abdominal pain and nausea. Increased pancreatic enzymes. Examination was performed on 1.5 Tangela magnet without administration of intravenous contrast followed by postcontrast study after administration of 15 mL of DOTAREM. No prior studies are available for comparison. Pancreas was visualized without evidence of masses, focal signal abnormalities or abnormal enhancement. There is no evidence of peripancreatic fluid collections, lymphadenopathy or enhancement. No focal abnormalities were identified within the liver, spleen, adrenal glands or kidneys. Gallbladder is surgically absent. There is no evidence of from biliary ducts dilatation. Pancreatic duct is normal in appearance. CONCLUSIONS: No focal abnormalities within the pancreas or peripancreatic region. Status post cholecystectomy. No acute MRI abnormalities in the abdominal organs. -------- FINAL REPORT -------- Dictated By: Jacey Orlando Dictated Date: 02/23/2024 17:24 ET Assigned Physician: Jacey Orlando Reviewed and Electronically Signed By: Jacey Orlando Signed Date: 02/23/2024 21:41 ET Workstation ID: [id number] Transcribed By: Self Edit Transcribed Date: 02/23/2024 19:34 ET Procedure Note Jacey Orlando MD - 02/23/2024 MRI of the abdomen without and with intravenous contrast. History abdominal pain and nausea. Increased pancreatic enzymes. Examination was performed on 1.5 Tangela magnet without administration ofintravenous contrast followed by postcontrast study after administrationof 15 mL of DOTAREM. No prior studies are available for comparison. Pancreas was visualized without evidence of masses, focal signalabnormalities or abnormal enhancement. There is no evidence ofperipancreatic fluid collections, lymphadenopathy or enhancement. No focal abnormalities were identified within the liver, spleen, adrenalglands or kidneys. Gallbladder is surgically absent. There is no evidenceof from biliary ducts dilatation. Pancreatic duct is normal inappearance. CONCLUSIONS: No focal abnormalities within the pancreas or peripancreaticregion. Status post cholecystectomy. No acute MRI abnormalities in theabdominal organs. -------- FINAL REPORT -------- Dictated By: Jacey Orlando Dictated Date: 02/23/2024 17:24 ET Assigned Physician: Jacey Orlando Reviewed and Electronically Signed By: Jacey Orlando Signed Date: 02/23/2024 21:41 ET Workstation ID: [id number] Transcribed By: Self Edit Transcribed Date: 02/23/2024 19:34 ET Kacey MCCOY IMG MRI PROCEDURES Final Resu lt * (ABNORMAL) CBC auto differential (02/21/2024 5:13 AM EST) Only the most recent of3 resultswithin the time period is included. WBC 3.8(L) 4.8 - 10.8 K/mcL LAB HEMETOLOGY METHOD 02/21/2024 5:36 AM [facility] RBC 3.60(L) 3.80 - 4.80 M/mcL LAB HEMETOLOGY METHOD 02/21/2024 5:36 AM [facility] Hemoglobin 10.9(L) 11.5 - 16.0 g/dL LAB HEMETOLOGY METHOD 02/21/2024 5:36 AM [facility] Hematocrit 34.0(L) 35.0 - 47.0 % LAB HEMETOLOGY METHOD 02/21/2024 5:36 AM [facility] MCV 94.7 79.0 - 98.0 FL LAB HEMETOLOGY METHOD 02/21/2024 5:36 AM [facility] MCH 30.4 27.0 - 32.0 pcg LAB HEMETOLOGY METHOD 02/21/2024 5:36 AM [facility] MCHC 32.1 32.0 - 37.0 g/dL LAB HEMETOLOGY METHOD 02/21/2024 5:36 AM [facility] RDW 12.9 11.0 - 15.0 % LAB HEMETOLOGY METHOD 02/21/2024 5:36 AM [facility] Platelets 341 130 - 400 K/mcL LAB HEMETOLOGY METHOD 02/21/2024 5:36 AM [facility] MPV 9.0 7.0 - 11.0 FL LAB HEMETOLOGY METHOD 02/21/2024 5:36 AM [facility] NRBC 0.0 <1.0 % LAB HEMETOLOGY METHOD 02/21/2024 5:36 AM [facility] NRBC Absolute 0.00 <0.10 K/mcL LAB HEMETOLOGY METHOD 02/21/2024 5:36 AM [facility] Neutrophils Relative 68.3 % LAB HEMETOLOGY METHOD 02/21/2024 5:36 AM [facility] Lymphocytes Relative 29.1 % LAB HEMETOLOGY METHOD 02/21/2024 5:36 AM [facility] Monocytes Relative 1.3 % LAB HEMETOLOGY METHOD 02/21/2024 5:36 AM [facility] Eosinophils Relative 0.0 % LAB HEMETOLOGY METHOD 02/21/2024 5:36 AM [facility] Basophils Relative 0.3 % LAB HEMETOLOGY METHOD 02/21/2024 5:36 AM [facility] Immature Granulocytes Relative 1.0 % LAB HEMETOLOGY METHOD 02/21/2024 5:36 AM [facility] Neutrophils Absolute 2.60 1.50 - 7.00 K/mcL LAB HEMETOLOGY METHOD 02/21/2024 5:36 AM [facility] Lymphocytes Absolute 1.11 1.00 - 5.00 K/mcL LAB HEMETOLOGY METHOD 02/21/2024 5:36 AM [facility] Monocytes Absolute 0.05(L) 0.20 - 1.00 K/mcL LAB HEMETOLOGY METHOD 02/21/2024 5:36 AM EST [facility] Eosinophils Absolute 0.00 0.00 - 0.50 K/[facility] LAB HEMETOLOGY METHOD 02/21/2024 5:36 AM EST [facility] Basophils Absolute 0.01 0.00 - 0.20 K/[facility] LAB HEMETOLOGY METHOD 02/21/2024 5:36 AM EST [facility] Immature Granulocytes Absolute 0.04(H) 0.00 - 0.03 K/mcL LAB HEMETOLOGY METHOD 02/21/2024 5:36 AM EST [facility] Blood Venous blood specimen / Unknown Venipuncture / Unknown 02/21/2024 5:13 AM EST 02/21/2024 5:18 AM EST us Orion Louis MD LAB BLOOD ORDERABLES Fi nal Result Performing Organization Address City/[facility]/ZIP Co de Phone Number [facility] [address] [place] [address], [place] [phone] * Triglycerides (02/21/2024 5:13 AM EST) Triglycerides 96 0 - 150 mg/dL LAB CHEMISTRY METHOD 02/21/2024 5:47 AM EST [facility] Blood Venous blood specimen / Unknown Venipuncture / Unknown 02/21/2024 5:13 AM EST 02/21/2024 5:18 AM EST us Orion Louis MD LAB BLOOD ORDERABLES Fi nal Result Performing Organization Address City/[facility]/ZIP Co de Phone Number [facility] [address] [place] [address], [place] [phone] * Lipase (02/21/2024 5:13 AM EST) Only the most recent of3 resultswithin the time period is included. Lipase 55 13 - 75 unit/L LAB CHEMISTRY METHOD 02/21/2024 5:47 AM EST [facility] Blood Venous blood specimen / Unknown Venipuncture / Unknown 02/21/2024 5:13 AM EST 02/21/2024 5:18 AM EST Orion Louis MD LAB BLOOD ORDERABLES Fi nal Result [facility] [address] [place] [address], [place] [phone] * CT Angio Chest wo and/or w Contrast (02/20/2024 9:01 PM EST) Anatomical Region Laterality Modality Body Computed Tomogra phy 02/20/2024 9:43 PM EST Impressions 02/20/2024 9:43 PM EST Impression: Normal CTA angiography of the aorta. Negative for pulmonary embolus. Lungs are clear. This document has been electronically signed by: Wilbert Bunn MD on 02/20/2024 21:43:16 Narrative 02/20/2024 9:43 PM EST CTA angiography chest using bolus contrast injection. 3-D postprocessing Comparison: None Findings: Normal thoracic aorta and branch vessels Heart size is normal. RV/LV ratio normal There is a 3 mm diameter pericardial effusion. Normal lungs Below the diaphragm, the gallbladder is surgically absent. Procedure Note Wilbert Bunn MD - 02/20/2024 CTA angiography chest using bolus contrast injection. 3-D postprocessing Comparison: None Findings: Normal thoracic aorta and branch vessels Heart size is normal. RV/LV ratio normal There is a 3 mm diameter pericardial effusion. Normal lungs Below the diaphragm, the gallbladder is surgically absent. IMPRESSION: Impression: Normal CTA angiography of the aorta. Negative for pulmonary embolus. Lungs are clear. This document has been electronically signed by: Wilbert Bunn MD on 02/20/2024 21:43:16 us Edvin Cho MD IMG CT PROCEDURES Final Result * (ABNORMAL) Venous blood gas (02/20/2024 8:02 PM EST) pH, George 7.39 7.32 - 7.42 pH 02/20/2024 8:13 PM EST [facility] pCO2, George 48 41 - 51 mmHg 02/20/2024 8:13 PM EST [facility] pO2, George 58(H) 25 - 40 mmHg 02/20/2024 8:13 PM EST [facility] HCO3, Venous 27.3(H) 22.0 - 26.0 mmol/L 02/20/2024 8:13 PM EST [facility] O2 Sat, George 90.9 % 02/20/2024 8:13 PM EST [facility] Base Excess, George 3.4(H) -2.0 - 2.0 mmol/L 02/20/2024 8:13 PM EST [facility] Blood Venous blood specimen / Unknown Venipuncture / Unknown 02/20/2024 8:02 PM EST 02/20/2024 8:09 PM EST us Edvin Cho MD LAB BLOOD ORDERABLES Final Resu lt [facility] [address] [place] [address], * CT Abdomen Pelvis w Contrast (02/20/2024 6:26 PM EST) Anatomical Region Laterality Modality Body Computed Tomogra phy 02/20/2024 6:43 PM EST Impressions 02/20/2024 6:43 PM EST Impression: 1. No acute abnormalities or CT explanation for reported history of epigastric pain. This document has been electronically signed by: Vicente Goss MD on 02/20/2024 18:43:57 Narrative 02/20/2024 6:43 PM EST Exam: Contrast-enhanced CT abdomen and pelvis with multiplanar reformats. Comparison: None. Findings: CT abdomen: Lung bases are clear. A small pericardial effusion is present. Liver is free of focal lesions and ductal dilatation. Gallbladder is absent. Spleen is unremarkable. Pancreas and adrenal glands appear unremarkable. Kidneys appear unremarkable. No free intraperitoneal fluid or retroperitoneal masses or adenopathy. Abdominal aorta is normal caliber with moderate calcific atherosclerosis. Bowel loops reveal no abnormal wall thickening or distention. No significant diverticular disease. The appendix is unremarkable. CT pelvis: Uterus is surgically absent. Urinary bladder is free of gross filling defects. No pelvic masses, fluid or adenopathy. Osseous structures reveal no destructive osseous lesions. Procedure Note Vicente Goss MD - 02/20/2024 Exam: Contrast-enhanced CT abdomen and pelvis with multiplanarreformats. Comparison: None. Findings: CT abdomen: Lung bases are clear. A small pericardial effusion ispresent. Liver is free of focal lesions and ductal dilatation. Gallbladder is absent. Spleen is unremarkable. Pancreas and adrenal glands appear unremarkable. Kidneys appear unremarkable. No free intraperitoneal fluid or retroperitoneal masses or adenopathy. Abdominal aorta is normal caliber with moderate calcificatherosclerosis. Bowel loops reveal no abnormal wall thickening or distention. No significant diverticular disease. The appendix is unremarkable. CT pelvis: Uterus is surgically absent. Urinary bladder is free of gross filling defects. No pelvic masses, fluid or adenopathy. Osseous structures reveal no destructive osseous lesions. IMPRESSION: Impression: 1. No acute abnormalities or CT explanation for reported history of epigastric pain. This document has been electronically signed by: Vicente Goss MD on 02/20/2024 18:43:57 Edvin B [facility]quis [facility]ED[place] Final Result * Respiratory virus panel molecular study (02/20/2024 5:39 PM EST) Adenovirus Detection by PCR Not Detected Not Detected LAB MICROBIOLOGY METHOD 02/20/2024 7:19 PM EST [facility] Influenza A PCR Not Detected Not Detected LAB MICROBIOLOGY METHOD 02/20/2024 7:19 PM EST [facility] Influenza B PCR Not Detected Not Detected LAB MICROBIOLOGY METHOD 02/20/2024 7:19 PM [facility] Coronavirus 229E Not Detected Not Detected LAB MICROBIOLOGY METHOD 02/20/2024 7:19 PM [facility] Coronavirus HKU1 Not Detected Not Detected LAB MICROBIOLOGY METHOD 02/20/2024 7:19 PM [facility] Coronavirus OC43 Not Detected Not Detected LAB MICROBIOLOGY METHOD 02/20/2024 7:19 PM [facility] Coronavirus NL63 Not Detected Not Detected LAB MICROBIOLOGY METHOD 02/20/2024 7:19 PM [facility] Parainfluenza Virus 1 Not Detected Not Detected LAB MICROBIOLOGY METHOD 02/20/2024 7:19 PM [facility] Parainfluenza Virus 2 Not Detected Not Detected LAB MICROBIOLOGY METHOD 02/20/2024 7:19 PM [facility] Parainfluenza Virus 3 Not Detected Not Detected LAB MICROBIOLOGY METHOD 02/20/2024 7:19 PM [facility] Parainfluenza Virus 4 Not Detected Not Detected LAB MICROBIOLOGY METHOD 02/20/2024 7:19 PM [facility] RSV PCR Not Detected Not Detected LAB MICROBIOLOGY METHOD 02/20/2024 7:19 PM [facility] Human Metapneumovirus A and B Not Detected Not Detected LAB MICROBIOLOGY METHOD 02/20/2024 7:19 PM [facility] LAB Rhinovirus/Entero virus Not Detected Not Detected LAB MICROBIOLOGY METHOD 02/20/2024 7:19 PM [facility] Bordetella pertussis Not Detected Not Detected LAB MICROBIOLOGY METHOD 02/20/2024 7:19 PM [facility] Bordetella parapertussis Not Detected Not Detected LAB MICROBIOLOGY METHOD 02/20/2024 7:19 PM [facility] Mycoplasma pneumo by PCR Not Detected Not Detected LAB MICROBIOLOGY METHOD 02/20/2024 7:19 PM [facility] Chlamydia pneumoniae Not Detected Not Detected LAB MICROBIOLOGY METHOD 02/20/2024 7:19 PM [facility] SARS COV-2 Not Detected Not Detected LAB MICROBIOLOGY METHOD 02/20/2024 7:19 PM [facility] Swab Both anterior nares / Unknown Non-blood Collection / Unknown 02/20/2024 5:39 PM EST 02/20/2024 6:21 PM EST [facility] LAB - 02/20/2024 7:19 PM EST Testing was performed using the [employer] Respiratory Pathogen PCR Assay. All results must be correlated with the clinical findings. Results should not be used as the sole basis for diagnosis. False Negative results may occur from the presence of sequence variants in the region targeted by the assay or the presence of inhibitors. Results may be affected by concurrent antiviral/antimicrobial therapy or levels of organisms that are below the limit of detection. Edvin Tika Cho MD LAB MICROBIOLOGY - [facility] Final Result [facility] [address] [place] [address], [place] [phone] * Comprehensive metabolic panel (02/20/2024 12:01 PM EST) Only the most recent of2 resultswithin the time period is included. Sodium 141 133 - 145 mmol/L LAB CHEMISTRY METHOD 02/20/2024 12:59 PM [facility] Potassium 3.6 3.5 - 5.5 mmol/L LAB CHEMISTRY METHOD 02/20/2024 12:59 PM [facility] Chloride 107 96 - 110 mmol/L LAB CHEMISTRY METHOD 02/20/2024 12:59 PM [facility] CO2 31 21 - 32 mmol/L LAB CHEMISTRY METHOD 02/20/2024 12:59 PM [facility] Anion Gap 3 3 - 11 LAB CHEMISTRY METHOD 02/20/2024 12:59 PM [facility] Glucose 92 70 - 100 mg/dL LAB CHEMISTRY METHOD 02/20/2024 12:59 PM [facility] BUN 11 5 - 25 mg/dL LAB CHEMISTRY METHOD 02/20/2024 12:59 PM [facility] Creatinine 0.85 0.50 - 1.10 mg/dL LAB CHEMISTRY METHOD 02/20/2024 12:59 PM [facility] eGFR 80 >=60 mL/min/1. 73m2 LAB CHEMISTRY METHOD 02/20/2024 12:59 PM [facility] Comment:Calculation based on the??Chronic Kidney Disease Epidemiology Collaboration (CKD-EPI) equation refit??without adjustment for race. BUN/Creatinine Ratio 12.9 LAB CHEMISTRY METHOD 02/20/2024 12:59 PM [facility] Calcium 9.3 8.5 - 10.5 mg/dL LAB CHEMISTRY METHOD 02/20/2024 12:59 PM [facility] AST (SGOT) 19 10 - 42 unit/L LAB CHEMISTRY METHOD 02/20/2024 12:59 PM [facility] ALT (SGPT) 34 10 - 60 unit/L LAB CHEMISTRY METHOD 02/20/2024 12:59 PM [facility] Alkaline Phosphatase 56 42 - 121 unit/L LAB CHEMISTRY METHOD 02/20/2024 12:59 PM [facility] Total Protein 6.4 6.0 - 8.0 g/dL LAB CHEMISTRY METHOD 02/20/2024 12:59 PM [facility] Albumin 3.5 3.2 - 5.0 g/dL LAB CHEMISTRY METHOD 02/20/2024 12:59 PM [facility] Total Bilirubin 0.2 0.0 - 1.4 mg/dL LAB CHEMISTRY METHOD 02/20/2024 12:59 PM [facility] Blood Venous blood specimen / Unknown Venipuncture / Unknown 02/20/2024 12:01 PM EST 02/20/2024 12:13 PM EST Edvin Cho MD LAB BLOOD ORDERABLES Final Resu lt [facility] [address] [place] [address], [place] [phone] * External clinical lab (02/17/2024) Provider [facility] LAB BLOOD ORDERABLES Fin al Result * Colonoscopy (11/08/2023) Colonoscopy No Interpretation , Abstracted Anatomical Region Laterality Modality Other Historical Provider HEALTH MAINTENANCE Final Result * SCREENING MAMMOGRAPHY BI 2-VIEW BREAST INC CAD (05/08/2021 1:42 PM EDT) Anatomical Region Laterality Modality Radiographic Tracy ging 01/16/2020 10:0 9 AM EST Narrative 05/09/2021 9:12 AM EDT This is a summary report. The complete report is available in the patient's medical record. If you cannot access the medical record, please contact the sending organization for a detailed fax or copy. Full field digital screening 2D and tomosynthesis mammography, reviewed with CAD and compared to previous. The breast tissue is heterogeneously dense, limiting sensitivity. No suspicious mass, architectural distortion or suspicious calcifications are identified. IMPRESSION: : Dense breast tissue, limiting the sensitivity of mammography. No mammographic evidence of malignancy. BIRADS 1-Negative; N. 5 year breast cancer risk assessment 2.2 % Lifetime breast cancer risk assessment 15.8 % Breast cancer risk category Moderate (15% - 20%) Procedure Note Jacey Orlando MD - 01/27/2022 This is a summary report. The complete report is available in thepatient's medical record. If you cannot access the medical record, pleasecontact the sending organization for a detailed fax or copy. Full field digital screening 2D and tomosynthesis mammography, reviewedwith CAD and compared to previous. The breast tissue is heterogeneouslydense, limiting sensitivity. No suspicious mass, architectural distortionor suspicious calcifications are identified. IMPRESSION: : Dense breast tissue, limiting the sensitivity of mammography. Nomammographic evidence of malignancy. BIRADS 1-Negative; N. 5 year breast cancer risk assessment 2.2 % Lifetime breast cancer risk assessment 15.8 % Breast cancer risk category Moderate (15% - 20%) Eric Sawyer MD IMG XR PROCEDURES Final Result * (ABNORMAL) Lipid panel (12/02/2020) LDL/HDL Ratio 6(A) 0 - 4 Triglycerides 434(A) 0 - 150 mg/dL Cholesterol 294(A) 0 - 200 mg/dL HDL 50 >=40 mg/dL LDL Cholesterol 158(A) 0 - 100 mg/dL Blood Venous blood specimen / Unknown Historical Provider LAB BLOOD ORDERABLES Roslyn l Result from Last 3 Months or Most Recently Relevant to Health Maintenance Insurance [address] [facility] [place] [address] [facility] MEDIC[facility] Member Subscriber Plan / Payer (Ef fective 2019-Present) Name:Faith Agrawal Relation to Subscriber:Self Name:Faith Agrawal Payer ID:[id number] Group ID:[id number] Type:Not on file Address: [address] [place] [address] Advance Directives Documents on File Type Date Recorded 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 Health Care Decision (hx) 09/13/2016 AD FERNÁNDEZ DIRECTIVE Health Care Decision (hx) 09/13/2016 AD FERNÁNDEZ DIRECTIVE Health Care Decision (hx) 09/13/2016 AD FERNÁNDEZ DIRECTIVE Health Care Decision (hx) 09/13/2016 AD FERNÁNDEZ DIRECTIVE Health Care Decision (hx) 09/13/2016 AD FERNÁNDEZ DIRECTIVE Health Care Decision (hx) 09/13/2016 AD FERNÁNDEZ DIRECTIVE * Full Code - Confirmed (Latest Code Status on File) Date Activated Date Inactivated Comments 02/21/2024 12:54 AM 02/21/2024 8:28 PM This code s tatus was ascertained in the following way: Code status discussion: discussion with patient To update the patient's code status, place a code status order. Do not modify or discontinue any currently active code status orders. Care Teams Stunt Woman Relationship Specialty Start Date End Date Eric Sawyer MD [address] [place] [address] PCP - General Internal Medicine 03/29/15
== END 2024-05-10 12:09 | disposition home or self-care (01) ==
PROVIDERS: PCP Internal Medicine; Visit Provider Internal Medicine
DX: Z23 Encounter for immunization (principal); L08.9 Local infection of the skin and subcutaneous tissue, unspecified

== ENCOUNTER → 2024-05-10 11:24 | Outpatient (BNVA) | payer OTHER, SELFPAY | PROVIDERS: PCP Internal Medicine; Visit Provider Internal Medicine | DX: Z23 Encounter for immunization (principal); L08.9 Local infection of the skin and subcutaneous tissue, unspecified | CPT/HCPCS: 90471; 90715; 99212 ==

== ENCOUNTER 2024-06-03 09:57 | Outpatient (AMB) | payer OTHER, SELFPAY ==
--- NOTE | 2024-06-03 10:29 | MHC.OFFWIV ---
Intake Vital Signs 06/03/24 10:30 Height 5 ft 3.5 in Weight 115 lb BMI 20.0 BP 120/80 Blood Pressure Location Rt brachial Position Sitting Respiration 16 Pulse 76 Pulse Source Pulse Oximeter Temp 98.3 F Temp Source Oral Pulse Oximetry (%) 95 Oxygen Delivery Method Room Air Intake Visit Reasons: EP-Has Chronic COPD, having shortness of breath Intake Note: Pt is here today c/o SOB and wheezing x3days h/o chronic COPD Patient Tobacco Use Status: Current everyday Tobacco user Allergies buprenorphine [From SUBOXONE] Allergy (Severe, Verified 06/03/24 10:38) ANAPHYLAXIS naloxone [From SUBOXONE] Allergy (Severe, Verified 06/03/24 10:38) ANAPHYLAXIS NSAIDS (Non-Steroidal Anti-Inflamma [Nsaids] Allergy (Unknown, Verified 06/03/24 10:38) RASH, ITCHING Medication List - Last Reconciled 06/03/24 by Christopher Ugarte MD albuterol sulfate 90 mcg/actuation (Ventolin HFA) 1 inh inhalation QID PRN albuterol sulfate 2.5 mg (3 mL) inhalation QID PRN colestipol 1 g PO BID esomeprazole magnesium mg PO aaqzcsqbwsa-plkmggabw-aronllzz 200-62.5-25 mcg (Trelegy Ellipta) 1 ea inhalation DAILY ondansetron mg PO prednisone 4 tabs daily for 4 days, 3 tabs daily for 2 days, 2 tabs daily for 2 days, 1 tab daily for 2 days PO daily; 10 days roflumilast mcg PO sertraline 100 mg PO BID sucralfate 1 g PO TID trazodone 100 mg PO BEDTIME HPI EP-Has Chronic COPD, having shortness of breath HPI Details History of COPD presents with some shortness of breath, wheezing and tightness in her chest with deep inspiration. She says this feels like prior COPD exacerbations. She denies any fevers. She does have some cough but minimal expect duration and no blood No sick contacts. No upper respiratory symptoms. PFSH Social History Patient Tobacco Use Status: Current everyday Tobacco user Review of Systems Const Denies chills, Denies fatigue, Denies fever(s), Denies headache(s) and Denies weakness ENT Denies dizziness and Denies headache(s) Card Denies chest pain, Denies lightheadedness, Reports dyspnea and Denies other (Palpitations) Resp Reports dyspnea, Reports wheezing and Denies other ( shortness of breath) Musc Denies numbness and Denies tingling Neuro Denies dizziness, Denies headache(s), Denies numbness, Denies tingling, Denies paresthesias and Denies weakness Psych Denies anxiety and Denies depression Endo Denies fatigue Aller/Immun Reports wheezing Physical Exam Vital Signs: Last Vital Signs Temp 98.3 F 06/03/24 10:30 Pulse 76 06/03/24 10:30 Resp 16 06/03/24 10:30 BP 120/80 06/03/24 10:30 Pulse Ox 95 06/03/24 10:30 Oxygen Delivery Method Room Air 06/03/24 10:30 BMI result Body Mass Index 20.0 Const General: no acute distress and well developed Nutritional Appearance: well nourished Orientation/consciousness: patient oriented x3 HEENT Head: Yes normocephalic and Yes atraumatic Eyes General: appearance normal, both eyes and all related structures Pupils: Equal, round and reactive pupils present EOM: EOMs intact bilaterally Resp Other: Moving air fairly well but with scattered wheezing throughout lungfields No decreased breath sounds Effort & Inspection: normal respiratory effort Cardio Rate: regular rate Rhythm: regular rhythm Heart sounds: S1 normal heart sound present, S2 normal heart sound present, no gallops, no murmurs and no rubs Neuro General: patient oriented x3 and gait normal Cranial nerves: Yes Equal, round and reactive pupils present Psych Affect: normal affect Assessment & Plan Assessment & Plan (1) COPD exacerbation: Comment: Patient's oxygenation is 96% on examination without tachypnea however patient is wheezing despite use of albuterol. Code(s): J44.1 - Chronic obstructive pulmonary disease with (acute) exacerbation Plan: Continue Trelegy and flumlast as prescribed. Increase albuterol inhaler to 2 puffs every 4 hours well having exacerbation. Prednisone taper - sent script to pharmacy Call or return to office if worsening or not improving. Medications: New prednisone 4 tabs daily for 4 days, 3 tabs daily for 2 days, 2 tabs daily for 2 days, 1 tab daily for 2 days PO daily; 10 days 28 tabs 0RF Coding Level of Care Code Est Pt Level 3 (52311) Diagnoses COPD exacerbation J44.1
[2024-06-03 10:30] VITALS: BP 120/80; PULSE 76; RESP 16; TEMP 36.8; O2SAT 95
== END 2024-06-03 11:48 | disposition home or self-care (01) ==
LOC: HO.HMCWIC 09:57
PROVIDERS: PCP Internal Medicine; Visit Provider Family Medicine
DX: J44.1 Chronic obstructive pulmonary disease with (acute) exacerbation (principal)

== ENCOUNTER → 2024-06-03 09:57 | Outpatient (BNVA) | payer OTHER, SELFPAY | PROVIDERS: PCP Internal Medicine; Visit Provider Family Medicine | DX: J44.1 Chronic obstructive pulmonary disease with (acute) exacerbation (principal) | CPT/HCPCS: 99212 ==

== ENCOUNTER 2024-06-26 10:09 | Outpatient (AMB) | payer OTHER, SELFPAY ==
--- OUTSIDE RECORDS SUMMARY | 2024-06-26 10:41 | XMS_ITS | Encounter Summary ---
Author Organization [facility] Address [address] [place] [address] Care Team Providers Care Water Attendant Name Role Phone Eric Sawyer MD Primary Care Provider [phone] Jose Baer MD Unavailable [phone] Encounter Details Date Type Department Care Team Description 08/28/2022 Orders Only [facility] Lung Screening Program [place] [address] [facility] [address] [place] [id number] Mir Abel MD [address] [facility] [address] [place] [id number] History of tobacco use, presenting hazards to health (Primary Dx); Encounter for screening for lung cancer Social History Tobacco Use Types Packs/Day Years Used Date Smoking Tobacco: Every Day Cigarettes 0.2 32 Smokeless Tobacco: Current Comments:7-8 cigs daily Alcohol Use Standard Drinks/Week Comments Yes 0 (1 standard drink = 0.6 oz pur e alcohol) occ Sex Assigned at Date Recorded Not on file Job Start Date Occupation Industry Not on file Not on file Not on file documented as of this encounter Plan of Treatment Not on file documented as of this encounter Results * CT LOW DOSE LUNG SCREEN ANNUAL (09/25/2022) 09/25/[address] SCANS documented in this encounter Visit Diagnoses Diagnosis History of tobacco use, presenting hazards to health- Primary Personal history of tobacco use, presenting hazards to health Encounter for screening for lung cancer documented in this encounter Care Teams Water Attendant Relationship Specialty Start Date End Date Eric Sawyer MD [address] [place] [address] PCP - General Internal Medicine 03/14/18 Jose Baer MD [address] [place] [address] Resawyer Cardiology 12/03/20 documented as of this encounter
--- OUTSIDE RECORDS SUMMARY | 2024-06-26 10:41 | XMS_ITS | Encounter Summary ---
Author Organization [facility] Address [address] [place] [address] Care Team Providers Care Landscape Photographer Name Role Phone Eric Sawyer MD Primary Care Provider [phone] Jose Baer MD Unavailable [phone] Reason for Visit * Reason Onset Date Comments refill request 08/23/2019 Encounter Details Date Type Department Care Team Description 08/23/2019 Refill Adult Medicine - [address] [address] Eric Sawyer MD [address] [place] [address] refill request Social History Tobacco Use Types Packs/Day Years Used Date Smoking Tobacco: Every Day Cigarettes 0.2 32 Smokeless Tobacco: Never Comments:5 cig daily Alcohol Use Standard Drinks/Week Comments No 0 (1 standard drink = 0.6 oz pur e alcohol) Sex Assigned at Date Recorded Not on file Job Start Date Occupation Industry Not on file Not on file Not on file documented as of this encounter Miscellaneous Notes * Telephone Encounter - Jacey Preciado M.A. - 08/23/2019 2:37 PM EDT Last seen 06/06/19, next appt 08/28/19. Controlled substance contract and last issue date of medication reviewed. Patient is due for medication. R-Squared printed Lab Results Component Value Date URBENZO POSITIVE 08/05/2018 UROPIATES NONE DETECTED 08/05/2018 URBARBITUATE NONE DETECTED 08/05/2018 PAINAMPHETAM NONE DETECTED 08/05/2018 PAINCOCAINE NONE DETECTED 08/05/2018 PAINCANNABIN NONE DETECTED 08/05/2018 * Telephone Encounter - Evelin Briseno - 08/23/2019 2:29 PM EDT Patient would like script to be: E-PRESCRIBED/FAXED TO PHARMACY WHEN WAS THE PATIENT'S LAST APPOINTMENT IN ADULT MEDICINE? 06/06/19 WHEN WAS THE LAST TIME THE PATIENT SAW THEIR PCP? Same as above Does patient have an upcoming appointment? Yes 08/28/19 (THE MEDICATION REQUESTED IS ON THE MED LIST ABOVE) All of the medications requested were on the CURRENT MEDS list Did you check the Pharmacy information above?: YES Patient wants: 30 -day supply Is this a mail order prescription request ? NO If the refill is from a FAXED refill request what is the RX # listed on the fax? N/A Patients current insurance carrier is: [facility] [employer] [facility] / Plan: [facility] / Product Type: HMO [id number] documented in this encounter Plan of Treatment Not on file documented as of this encounter Visit Diagnoses Diagnosis Anxiety Anxiety state, unspecified documented in this encounter Care Teams Landscape Photographer Relationship Specialty Start Date End Date Eric Sawyer MD [address] [place] [address] PCP - General Internal Medicine 03/14/18 Joes Baer MD [address] [place] [phone] French Folding Machine Operator Cardiology 12/03/20 documented as of this encounter
--- OUTSIDE RECORDS SUMMARY | 2024-06-26 10:41 | XMS_ITS | Encounter Summary ---
Author Organization [facility] Address [facility] [place] [address] Care Team Providers Care School Bus Operator Name Role Phone Eric Sawyer MD Primary Care Provider [phone] Jose Baer MD Unavailable [phone] Reason for Visit * Reason Onset Date Comments Pain, Post Operative 05/05/2022 Pt is s/p U pper abdominal lipomas excision done in office yesterday Encounter Details Date Type Department Care Team Description 05/05/2022 Telephone General Surgery - [place] [address] [address] Simon Meza MD [address] [address] Pain, Post Operative (Pt is s/p Upper abdominal lipomas excision done in office yesterday) Social History Tobacco Use Types Packs/Day Years Used Date Smoking Tobacco: Every Day Cigarettes 0.2 32 Smokeless Tobacco: Current Comments:7-8 cigs daily Alcohol Use Standard Drinks/Week Comments Yes 0 (1 standard drink = 0.6 oz pur e alcohol) occ Sex Assigned at Date Recorded Not on file Job Start Date Occupation Industry Not on file Not on file Not on file COVID-19 Exposure Response Date Recorded In the last 10 days, have yo u been in contact with someone who was confirmed or suspected to have Coronavirus/COVID-19? No / Unsure 05/04/2022 12:54 PM EDT documented as of this encounter Miscellaneous Notes * Telephone Encounter - Ana Dotson M.A. - 05/05/2022 4:34 PM EDT Pt has been given message , she stated that she is allergic to NSAIDS. But she just said thanks forcalling back and hung up. * Telephone Encounter - Ana Dotson M.A. - 05/05/2022 3:57 PM EDT Pt was offered an appointment to see you tomorrow in the office, she declined please advise * Telephone Encounter - Tami Bradshaw - 05/05/2022 2:23 PM EDT Pt is s/p Upper abdominal lipomas excision done in office yesterday. She states the tylonal OTc is not helping manage the pain. She is very uncomfortable with severe brusing and swelling.She is also experiencing muscle spasms in her abdomen. Please advise pt would like something for pain. documented in this encounter Plan of Treatment Not on file documented as of this encounter Visit Diagnoses Not on filedocumented in this encounter Care Teams School Bus Operator Relationship Specialty Start Date End Date Eric Sawyer MD [address] [place] [address] PCP - General Internal Medicine 03/14/18 Jose Baer MD [address] [place] [address] Parole Agent Cardiology 12/03/20 documented as of this encounter
--- OUTSIDE RECORDS SUMMARY | 2024-06-26 10:41 | XMS_ITS | Encounter Summary ---
Author Organization [facility] Address [address] [place] [address] Care Team Providers Care Injection Specialist Name Role Phone Eric Sawyer MD Primary Care Provider [phone] Jose Baer MD Unavailable [phone] Encounter Details Date Type Department Care Team Description 06/03/2022 SCAN Medical Records [address] [place] [address] Abstract, Provider Social History Tobacco Use Types Packs/Day Years [...] PM EDT documented as of this encounter Plan of Treatment Not on file documented as of this encounter Visit Diagnoses Not on filedocumented in this encounter Care Teams Injection Specialist Relationship Specialty Start Date End Date Eric Sawyer MD [address] [place] [address] [id number] PCP - General Internal Medicine 03/14/18 Jose Baer MD [address] [place] [address] [phone] Classroom Assistant Cardiology 12/03/20 documented as of this encounter
--- OUTSIDE RECORDS SUMMARY | 2024-06-26 10:41 | XMS_ITS | Encounter Summary ---
Author Organization [facility] Address [address] [place] [address] Care Team Providers Care Narrative Writer Name Role Phone Eric Sawyer MD Primary Care Provider [phone] Jose Baer MD Unavailable [phone] Reason for Visit * Reason Onset Date Comments refill request 03/26/2022 Encounter Details Date Type Department Care Team Description 03/26/2022 Refill Pulmonology - [address] [place] [address] Bill Johnson MD refill request Social History Tobacco Use Types [...] encounter Miscellaneous Notes * Telephone Encounter - Carl Pyle - 03/26/2022 2:13 PM EST Patient would like script to be: E-PRESCRIBED/FAXED TO PHARMACY WHEN WAS THE PATIENT'S LAST APPOINTMENT IN ADULT MEDICINE? 12/17/21 WHEN WAS THE LAST TIME THE PATIENT SAW THEIR PCP? Same as above Does patient have an upcoming appointment? Yes 04/13/22 (THE MEDICATION REQUESTED IS ON THE MED [...] N/A Patients current insurance carrier is: Payor: [employer] MCR / Plan: [facility] / Product Type: HMO [id number] documented in this encounter Plan of Treatment Not on file documented as of this encounter Visit Diagnoses Diagnosis Stage 2 moderate COPD by GOLD classification (HCC) documented in this encounter Care Teams Narrative Writer Relationship Specialty Start Date End Date Eric Sawyer MD [address] [place] [phone] PCP - General Internal Medicine 03/14/18 Jose Baer MD [address] [place] [phone] Senior Producer Cardiology 12/03/20 documented as of this encounter
--- OUTSIDE RECORDS SUMMARY | 2024-06-26 10:41 | XMS_ITS | Encounter Summary ---
Author Organization [facility] Address [address] [place] [address] Care Team Providers Care Group Fitness Instructor Name Role Phone Eric Sawyer MD Primary Care Provider [phone] Jose Baer MD Unavailable [phone] Reason for Visit * Reason Comments E-prescribe Rx Request Encounter Details Date Type Department Care Team Description 04/06/2022 Refill Gastroenterology [address] [place] [address] Telly Glover PA-C E-prescribe Rx Request Social History Tobacco Use Types Packs/Day Years [...] suspected to have Coronavirus/COVID-19? No / Unsure 04/08/2022 2:33 PM EST documented as of this encounter Plan of Treatment Not on file documented as of this encounter Visit Diagnoses Not on filedocumented in this encounter Care Teams Group Fitness Instructor Relationship Specialty Start Date End Date Eric Sawyer MD [address] [place] [phone] PCP - General Internal Medicine 03/14/18 Jose Baer MD [address] [place] [address] Mattress And Boxsprings Supervisor Cardiology 12/03/20 documented as of this encounter
--- OUTSIDE RECORDS SUMMARY | 2024-06-26 10:41 | XMS_ITS | Encounter Summary ---
Author Organization [facility] Address [address] [place] [address] Care Team Providers Care Assistant Sales Manager Name Role Phone Eric Sawyer MD Primary Care Provider [phone] [facility] Eric Solitario MD Primary Care Provider [phone] Jose Baer MD Unavailable [phone] Encounter Details Date Type Department Care Team Description 08/31/2016 Hospital Medical Records [address] [place] [address] Simon Meza MD [address] [place] [address] Social History Tobacco Use Types Packs/Day Years [...] on filedocumented in this encounter Care Teams Assistant Sales Manager Relationship Specialty Start Date End Date Eric Sawyer MD [address] [place] [address] PCP - General Internal Medicine 03/29/15 08/29/17 [facility] Pcp [address] [place] [address] PCP - General Internal Medicine 08/30/17 03/13/18 Eric Sawyer MD [address] [place] [address] PCP - General Internal Medicine 03/14/18 Jose Baer MD [address] [place] [address] Sweat Band Separator Cardiology 12/03/20 documented as of this encounter
--- OUTSIDE RECORDS SUMMARY | 2024-06-26 10:41 | XMS_ITS | Encounter Summary ---
Author Organization [facility] Address [address] [place] [address] Care Team Providers Care Unemployment Insurance Hearing Officer Name Role Phone Eric Sawyer MD Primary Care Provider [phone] Shaz[facility], [facility] Primary Care Provider Eric Ricketts MD Primary Care Provider [phone] Jose Baer MD Unavailable [phone] Encounter Details Date Type Department Care Team Description 07/23/2016 Release of Information Medical Records [address] [place] [address] Abstract, Provider Social History Tobacco Use Types Packs/Day Years Used Date Smoking Tobacco: Every Day Cigarettes 0.2 15 Smokeless Tobacco: Never Comments:5 cig daily Alcohol Use Standard Drinks/Week Comments Yes [...] on filedocumented in this encounter Care Teams Unemployment Insurance Hearing Officer Relationship Specialty Start Date End Date Eric Sawyer MD [address] [place] [address] PCP - General Internal Medicine 03/29/15 08/29/17 [facility], Pcp [address] [place] [address] PCP - General Internal Medicine 08/30/17 03/13/18 Eric Sawyer MD [address] [place] [address] PCP - General Internal Medicine 03/14/18 Jose Baer MD [address] [place] [address] Creative Engagement Director Cardiology 12/03/20 documented as of this encounter
--- OUTSIDE RECORDS SUMMARY | 2024-06-26 10:42 | XMS_ITS | Encounter Summary ---
Author Organization [facility] Address [address] [place] [address] Care Team Providers Care Radiologic Technology Teacher Name Role Phone Eric Sawyer MD Primary Care Provider [phone] Jose Baer MD Unavailable Encounter Details Date Type Department Care Team Description 12/12/2022 Hospital Medical Records [address] [place] [address] Ric Barber PA-C Social History Tobacco Use Types Packs/Day Years [...] on filedocumented in this encounter Care Teams Radiologic Technology Teacher Relationship Specialty Start Date End Date Eric Sawyer MD [address] [place] [address] PCP - General Internal Medicine 03/14/18 Jose Baer MD [address] [place] [address] [id number] Patient Admitting Representative Cardiology 12/03/20 documented as of this encounter
--- OUTSIDE RECORDS SUMMARY | 2024-06-26 10:42 | XMS_ITS | Encounter Summary ---
Author Organization [facility] Address [address] [place] [address] Care Team Providers Care Movie Theater Usher Name Role Phone Eric Sawyer MD Primary Care Provider [phone] Jose Baer MD Unavailable [phone] Reason for Visit * Reason Comments E-prescribe Rx Request Encounter Details Date Type Department Care Team Description 12/01/2023 Refill Gastroenterology [address] [place] [address] Kacey Christianson DScPAS E-prescribe Rx Request Social History Tobacco Use [...] encounter Miscellaneous Notes * Telephone Encounter - Margaret Ritter M.A. - 12/01/2023 10:01 AM EDT Yoan: 11/01/2023 Nov: 01/12/2024 documented in this encounter Plan of Treatment Not on file documented as of this encounter Visit Diagnoses Not on filedocumented in this encounter Care Teams Movie Theater Usher Relationship Specialty Start Date End Date Eric Sawyer MD [address] [place] [address] PCP - General Internal Medicine 03/14/18 Jose Baer MD [address] [place] [address] Washcoat Wiper Cardiology 12/03/20 documented as of this encounter
--- OUTSIDE RECORDS SUMMARY | 2024-06-26 10:42 | XMS_ITS | Encounter Summary ---
Author Organization [facility] Address [address] [place] [address] Care Team Providers Care Outside Machinist Name Role Phone Eric Sawyer MD Primary Care Provider [phone] Jose Baer MD Unavailable [phone] Encounter Details Date Type Department Care Team Description 07/02/2018 Telephone Gastroenterology - [address] [place] [address] Mando Hernandez MD Social History Tobacco Use Types Packs/Day Years [...] encounter Miscellaneous Notes * Telephone Encounter - Grace Guzman - 07/08/2018 3:57 PM EDT 2nd vm left for pt requesting a call back to jt * Telephone Encounter - Grace Guzman - 07/02/2018 8:26 AM EDT Lvm for pt requesting a call back to jt tacos w/Dr. Hernandez documented in this encounter Plan of Treatment Not on file documented as of this encounter Visit Diagnoses Not on filedocumented in this encounter Care Teams Outside Machinist Relationship Specialty Start Date End Date Eric Sawyer MD [address] [place] [address] PCP - General Internal Medicine 03/14/18 Jose Baer MD [address] [place] [address] Wardrobe Supervisor Cardiology 12/03/20 documented as of this encounter
--- OUTSIDE RECORDS SUMMARY | 2024-06-26 10:42 | XMS_ITS | Encounter Summary ---
Author Organization [facility] Address [address] [place] [address] Care Team Providers Care Sales Force Developer Name Role Phone Community, Pcp Primary Care Provider Eric Ricketts MD Primary Care Provider [phone] Jose Baer MD Unavailable [phone] Encounter Details Date Type Department Care Team Description 03/01/2018 Water Resource Consultant Report Medical Records [address] [place] [address] Leanne Todd MD [address] [place] [address] Social History Tobacco Use Types Packs/Day Years [...] on filedocumented in this encounter Care Teams Sales Force Developer Relationship Specialty Start Date End Date Community, Pcp PCP - General Internal Medicine 08/30/17 03/13/18 Eric Sawyer MD [address] [place] [address] [id number] PCP - General Internal Medicine 03/14/18 Jose Baer MD [address] [place] [address] [id number] President & Ceo Cardiology 12/03/20 documented as of this encounter
--- OUTSIDE RECORDS SUMMARY | 2024-06-26 10:42 | XMS_ITS | Encounter Summary ---
Author Organization [facility] Address [address] [place] [address] Care Team Providers Care Brush And Broom Clipper Name Role Phone Eric Sawyer MD Primary Care Provider [phone] Jose Baer MD Unavailable Reason for Visit * Reason Onset Date Comments Medication 11/04/2023 Encounter Details Date Type Department Care Team Description 11/04/2023 Telephone Gastroenterology - [address] [place] [phone] Kacey Christianson, DScPAS Medication Social History Tobacco Use Types Packs/Day Years [...] encounter Miscellaneous Notes * Telephone Encounter - Nancy Agustin - 11/04/2023 2:42 PM EDT Sera calling from [facility] states colestipol (Colestid) 5 g packet no longer comesin packets. It comes in a 500 G bottle with a scoop which is on decision science analyst back order. Call back # if needed [phone] documented in this encounter Plan of Treatment Not on file documented as of this encounter Visit Diagnoses Not on filedocumented in this encounter Care Teams Brush And Broom Clipper Relationship Specialty Start Date End Date Eric Sawyer MD [address] [place] [address] PCP - General Internal Medicine 03/14/18 Jose Baer MD [address] [place] [address] Swaging Machine Adjuster Cardiology 12/03/20 documented as of this encounter
--- OUTSIDE RECORDS SUMMARY | 2024-06-26 10:42 | XMS_ITS | Encounter Summary ---
Author Organization [facility] Address [address] [place] [address] Care Team Providers Care Services Manager Name Role Phone Eric Sawyer MD Primary Care Provider [phone] Jose Baer MD Unavailable [phone] Reason for Visit * Reason Onset Date Comments Prior Authorization 08/05/2018 stress test Encounter Details Date Type Department Care Team Description 08/05/2018 Telephone Adult Medicine [address] [address] Eden Dickson PA-C [address] [address] Prior Authorization (stress test) Social History Tobacco Use Types Packs/Day Years [...] encounter Miscellaneous Notes * Telephone Encounter - Iman Loaiza - 08/05/2018 11:36 AM EDT [facility] - [id number] 08/05/18 - 10/04/18 Order was sent to the [employer] for scheduling. documented in this encounter Plan of Treatment Not on file documented as of this encounter Visit Diagnoses Not on filedocumented in this encounter Care Teams Services Manager Relationship Specialty Start Date End Date Eric Sawyer MD [address] [place] [address] PCP - General Internal Medicine 03/14/18 Jose Baer MD [address] [place] [address] Instructor Substitute Cosmetology Cardiology 12/03/20 documented as of this encounter
--- OUTSIDE RECORDS SUMMARY | 2024-06-26 10:42 | XMS_ITS | Encounter Summary ---
Author Organization [facility] Address [address] [place] [address] Care Team Providers Care Education Finance Processor Name Role Phone Eric Sawyer MD Primary Care Provider [phone] Jose Baer MD Unavailable [phone] Encounter Details Date Type Department Care Team Description 10/05/2023 Orders Only [facility] Lung Screening Program [place] [address] [facility] [address] [place] [phone] Mir Abel MD [address] [facility] Go [address] [place] [address] Encounter for screening for lung cancer Social [...] on file documented as of this encounter Procedures Procedure Name Priority Date/Time Associated Diagnosis Comments CT LOW DOSE LUNG SCREEN ANNUAL Routine 10/04/2023 Encounter for screening for lung cancer documented in this encounter Results * CT LOW DOSE LUNG SCREEN ANNUAL (10/04/2023) Mir Abel MD CT SCANS documented in this encounter Visit Diagnoses Diagnosis Encounter for screening for lung cancer documented in this encounter Care Teams Education Finance Processor Relationship Specialty Start Date End Date Eric Sawyer MD [address] [place] [address] PCP - General Internal Medicine 03/14/18 Jose Baer MD [address] [place] [address] Electric Melt Operator Cardiology 12/03/20 documented as of this encounter
--- OUTSIDE RECORDS SUMMARY | 2024-06-26 10:42 | XMS_ITS | Encounter Summary ---
Author Organization [facility] Address [address] [place] [address] Care Team Providers Care Surgical Physician Assistant Name Role Phone Eric Sawyer MD Primary Care Provider [phone] Jose Baer MD Unavailable [phone] Reason for Visit * Reason Onset Date Comments Medication 05/27/2018 Encounter Details Date Type Department Care Team Description 05/27/2018 Telephone Gastroenterology - [address] [place] [address] Mando Hernandez MD Medication Social History Tobacco Use Types Packs/Day [...] encounter Miscellaneous Notes * Telephone Encounter - Re Roman - 05/27/2018 4:40 PM EDT Patient is booked for 06/30, could you please send prep to [facility] in [place] on [facility]. Thank you documented in this encounter Plan of Treatment Not on file documented as of this encounter Visit Diagnoses Not on filedocumented in this encounter Care Teams Surgical Physician Assistant Relationship Specialty Start Date End Date Eric Sawyer MD [address] [place] [address] PCP - General Internal Medicine 03/14/18 Jose Baer MD [address] [place] [address] Termite Technician Cardiology 12/03/20 documented as of this encounter
--- OUTSIDE RECORDS SUMMARY | 2024-06-26 10:42 | XMS_ITS | Encounter Summary ---
Author Organization [facility] Address [address] [place] [address] Care Team Providers Care Scrubber Machine Tender Name Role Phone Eric Sawyer MD Primary Care Provider [phone] [facility], [facility] Primary [facility] Eric Sawyer MD Primary Care Provider [phone] Jose Baer MD Unavailable [phone] Reason for Visit * Reason Onset Date Comments Tube Bending Machine Operator Feedback 11/30/2016 Dr Martin Encounter Details Date Type Department Care Team Description 11/30/2016 Telephone Adult Medicine - [address] [address] Eric Sawyer MD [address] [place] [address] Tube Bending Machine Operator Feedback (Dr Martin) Social History Tobacco Use Types Packs/Day Years [...] encounter Miscellaneous Notes * Telephone Encounter - Eden Aguilera - 11/30/2016 1:57 PM EDT Referral Confirmation You have successfully submitted the Referral for FAITH GONZALEZ . The following Referral Authorization Number should be retained in your records. Referral Authorization # [id number] Number of Visits 6 If you require assistance or support related to this submission, please contact Customer Support [phone]. 11/30/16-11/30/17 Processed under Martha Martin * Telephone Encounter - Muriel Fischer - 11/30/2016 1:52 PM EDT Re-routing to referrals * Telephone Encounter - Karon Mars M.A. - 11/30/2016 1:49 PM EDT Please send to correct pool. Thank you * Telephone Encounter - Muriel Fischer - 11/30/2016 1:18 PM EDT What insurance does the patient have today? [employer] [id number] Effective 11/08/08: [facility] will not retro referral requests over 90 days. If request is for this please instruct patient to call the 800# on their insurance card to appeal. Do not submit a request. Referrals cannot be processed if the insurance is not accurate. If the insurance listed above in red is NO BILLING INFORMATION FOUND FOR THIS ENCOUTNER The patients correct insurance must be obtained and registered in [facility] or their referral can not be processed. Is this a retro request? NO. If yes for what date of service do you need the retro referral? N/A Who is calling to request this referral? patient If the caller is not the patient, what is their name? N/A Ask the patient WHO referred them to this specialty: Patient was seen by external specialst Dr. Marj Dinh who has now referred them to this specialty FIRST and LAST NAME of SPECIALIST PATIENT is seeing: Martha Martin What specialty is this? orthopedics DIAGNOSIS Patient is being seen for (Not a body part or a procedure): torn menicus in kneee Have you seen this SPECIALIST for this PROBLEM/DX before?NO If YES, when:n/a Have you checked REVIEW or the APPT DESK to see if this referral has already been done or has visits left? YES Is this visit:Initial Visit Address of Specialist:[address] [place] [address], [address], [place] [address] Phone # of Specialist:[phone] Fax #: (if applicable):[phone] Does patient have an appointment scheduled?: YES Date of appointment- (including a retro-request): 12/18/2016 Is this appointment related to: Not MVA, WC or Surgery related documented in this encounter Plan of Treatment Not on file documented as of this encounter Visit Diagnoses Not on filedocumented in this encounter Care Teams Scrubber Machine Tender Relationship Specialty Start Date End Date Eric Sawyer MD [address] [place] [address] PCP - General Internal Medicine 03/29/15 08/29/17 [facility], Pcp [address] [place] [address] PCP - General Internal Medicine 08/30/17 03/13/18 Eric Swayer MD [address] [place] [address] PCP - General Internal Medicine 03/14/18 Jose Baer MD [address] [place] [address] Licensing Coordinator Cardiology 12/03/20 documented as of this encounter
--- OUTSIDE RECORDS SUMMARY | 2024-06-26 10:42 | XMS_ITS | Encounter Summary ---
Author Organization [facility] Address [address] [place] [address] Care Team Providers Care Vice Principal Name Role Phone Eric Sawyer MD Primary Care Provider [phone] Jose Baer MD Unavailable [phone] Encounter Details Date Type Department Care Team Description 07/15/2021 Orders Only Medical Records [address] [place] [address] Kash Romo MD [address] [place] [address] Social History Tobacco Use Types Packs/Day Years [...] suspected to have Coronavirus/COVID-19? No / Unsure 06/27/2021 3:01 PM EDT documented as of this encounter Progress Notes * Wes Romo MD - 07/21/2021 11:09 AM EDT Dear Ms. AgrawalThe biopsies of your stomach taken during your endoscopy are showing nonspecific congestion which could also be caused by irritation.I would like to personally thank you for allowing us to take care of you. Please don't hesitate to call us for any questions or concerns. Regards, Jami Romo MD Board Certified Gastroenterology and Internal Medicine Transplant Hepatology [facility] documented in this encounter Plan of Treatment Not on file documented as of this encounter Procedures Procedure Name Priority Date/Time Associated Diagnosis Comments OUTSIDE PATHOLOGY Routine 07/11/2021 documented in this encounter Results * OUTSIDE PATHOLOGY (07/11/2021) H Chema Romo MD OUTSIDE LAB documented in this encounter Visit Diagnoses Not on filedocumented in this encounter Care Teams Vice Principal Relationship Specialty Start Date End Date Eric Sawyer MD [address] [place] [address] PCP - General Internal Medicine 03/14/18 Jose Baer MD [address] [place] [address] Doorperson Or Luggage Porter Cardiology 12/03/20 documented as of this encounter
--- OUTSIDE RECORDS SUMMARY | 2024-06-26 10:42 | XMS_ITS | Encounter Summary ---
Author Organization [facility] Address [address] [place] [address] Care Team Providers Care Marketing Research Analyst Name Role Phone Eric Sawyer MD Primary Care Provider [phone] Jose Baer MD Unavailable [phone] Encounter Details Date Type Department Care Team Description 10/01/2022 Information Systems Manager Report Medical Records [address] [place] [address] [facility] [address] [place] [address] Social History Tobacco Use Types Packs/Day Years [...] suspected to have Coronavirus/COVID-19? No / Unsure 09/25/2022 10:48 AM EDT documented as of this encounter Plan of Treatment Not on file documented as of this encounter Visit Diagnoses Not on filedocumented in this encounter Care Teams Marketing Research Analyst Relationship Specialty Start Date End Date Eric Sawyer MD [address] [place] [address] PCP - General Internal Medicine 03/14/18 Jose Baer MD [address] [place] [address] Photovoltaic Subcontractor Cardiology 12/03/20 documented as of this encounter
--- OUTSIDE RECORDS SUMMARY | 2024-06-26 10:42 | XMS_ITS | Encounter Summary ---
Author Organization [facility] Address [address] [place] [address] Care Team Providers Care Ground Crew Lines Person Name Role Phone Eric Sawyer MD Primary Care Provider [phone] Jose Baer MD Unavailable [phone] Encounter Details Date Type Department Care Team Description 12/15/2020 Orders Only Adult Medicine B - [address] [address] Eden Dickson PA-C [address] [address] Social History Tobacco Use Types Packs/Day Years [...] Exposure Response Date Recorded In the last month, have you been in contact with someone who was confirmed or suspected to have Coronavirus / COVID-19? No / Unsure 12/02/2020 8:39 AM EDT documented as of this encounter Plan of Treatment Not on file documented as of this encounter Visit Diagnoses Not on filedocumented in this encounter Care Teams Ground Crew Lines Person Relationship Specialty Start Date End Date Eric Sawyer MD [address] [place] [address] PCP - General Internal Medicine 03/14/18 Jose Baer MD [address] [place] [address] Palaeontologist Cardiology 12/03/20 documented as of this encounter
--- OUTSIDE RECORDS SUMMARY | 2024-06-26 10:42 | XMS_ITS | Encounter Summary ---
Author Organization [facility] Address [address] [place] [address] Care Team Providers Care Taker Off Drying Kiln Name Role Phone Eric Sawyer MD Primary Care Provider [phone] [facility], [facility] Primary Care Provider Jerrica Eric Sawyer MD Primary Care Provider [phone] Jose Baer MD Unavailable [phone] Encounter Details Date Type Department Care Team Description 01/19/2016 SCAN Medical Records [address] [place] [address] Abstract, Provider Social History Tobacco Use Types [...] Name Priority Date/Time Associated Diagnosis Comments OUTSIDE CT Routine 01/19/2016 documented in this encounter Results * OUTSIDE CT (01/19/2016) Provider Abstract RADIOLOGY documented in this encounter Visit Diagnoses Not on filedocumented in this encounter Care Teams Taker Off Drying Kiln Relationship Specialty Start Date End Date Eric Sawyer MD [address] [place] [address] PCP - General Internal Medicine 03/29/15 08/29/17 [facility], Pcp [address] [place] [address] PCP - General Internal Medicine 08/30/17 03/13/18 Eric Sawyer MD [address] [place] [address] PCP - General Internal Medicine 03/14/18 Jose Baer MD [address] [place] [address] Biological Sciences Instructor Cardiology 12/03/20 documented as of this encounter
--- OUTSIDE RECORDS SUMMARY | 2024-06-26 10:42 | XMS_ITS | Encounter Summary ---
Author Organization [facility] Address [address] [place] [address] Care Team Providers Care Acid Maker Name Role Phone Eric Sawyer MD Primary Care Provider [phone] [facility], [facility] Primary [facility] Provider [facility] Eric Sawyer MD Primary Care Provider [phone] Jose Baer MD Unavailable [phone] Encounter Details Date Type Department Care Team Description 06/02/2017 PNO Controlled Substance Contract Medical Records [address] [place] [address] Abstract, Provider Social History Tobacco Use Types [...] on filedocumented in this encounter Care Teams Acid Maker Relationship Specialty Start Date End Date Eric Sawyer MD [address] [place] [address] PCP - General Internal Medicine 03/29/15 08/29/17 [facility], Pcp [address] [place] [address] PCP - General Internal Medicine 08/30/17 03/13/18 Eric Sawyer MD [address] [place] [address] PCP - General Internal Medicine 03/14/18 Jose Baer MD [address] [place] [address] Lamp Shades Supervisor Cardiology 12/03/20 documented as of this encounter
--- OUTSIDE RECORDS SUMMARY | 2024-06-26 10:42 | XMS_ITS | Encounter Summary ---
Author Organization [facility] Address [address] [facility] [place] [address] Care Team Providers Care Line Builder Name Role Phone Eric Sawyer MD Primary Care Provider [phone] Count Includes [facility], [facility] Primary Care Provider [facility] Eric Sawyer MD Primary Care Provider [phone] Jose Baer MD Unavailable [phone] Reason for Visit * Reason Onset Date Comments REFERRAL 04/22/2017 Encounter Details Date Type Department Care Team Description 04/22/2017 Telephone Genetic & Disease Counseling - [address] [address] Winsome Ford PA-C REFERRAL Social History Tobacco Use Types Packs/Day Years [...] encounter Miscellaneous Notes * Telephone Encounter - Theresa Calderon - 04/22/2017 11:10 AM EDT FYI ONLY. Pt no showed 04/19/17 genetic counseling visit. I am removing this pt from the genetic testing schedule. Order expires 04/08/18,[facility]. documented in this encounter Plan of Treatment Not on file documented as of this encounter Visit Diagnoses Not on filedocumented in this encounter Care Teams Line Builder Relationship Specialty Start Date End Date Eric Sawyer MD [address] [place] [address] PCP - General Internal Medicine 03/29/15 08/29/17 Count Includes [facility], [address] [address] PCP - General Internal Medicine 08/30/17 03/13/18 Eric Sawyer MD [address] [place] [address] PCP - General Internal Medicine 03/14/18 Jose Baer MD [address] [place] [address] Restaurant Busser Cardiology 12/03/20 documented as of this encounter
--- OUTSIDE RECORDS SUMMARY | 2024-06-26 10:42 | XMS_ITS | Encounter Summary ---
Author Organization [facility] Address [address] [facility] [place] [address] Care Team Providers Care Production Miner Name Role Phone Eric Sawyer MD Primary Care Provider [phone] Jose Baer MD Unavailable Encounter Details Date Type Department Care Team Description 11/01/2023 Telephone Gastroenterology - [address] [place] [address] Kacey Christianson DScPAS Social History Tobacco Use Types Packs/Day Years [...] on filedocumented in this encounter Care Teams Production Miner Relationship Specialty Start Date End Date Eric Sawyer MD [address] [place] [address] PCP - General Internal Medicine 03/14/18 Jose Baer MD [address] [place] [address] Laser Technician Cardiology 12/03/20 documented as of this encounter
--- OUTSIDE RECORDS SUMMARY | 2024-06-26 10:42 | XMS_ITS | Encounter Summary ---
Author Organization [facility] Address [address] [place] [address] Care Team Providers Care Womens Health Nurse Practitioner Name Role Phone Eric Sawyer MD Primary Care Provider [phone] Jose Baer MD Unavailable [phone] Encounter Details Date Type Department Care Team Description 03/09/2020 [facility] Medical Records [address] [place] [address] Abstract, Provider Social History Tobacco Use Types [...] have Coronavirus / COVID-19? No / Unsure 02/20/2020 10:24 AM EST documented as of this encounter Plan of Treatment Not on file documented as of this encounter Procedures Procedure Name Priority Date/Time Associated Diagnosis Comments OUTSIDE VASCULAR STUDY Routine 03/09/2020 documented in this encounter Results * OUTSIDE VASCULAR STUDY (03/09/2020) Provider Abstract CARDIOLOGY documented in this encounter Visit Diagnoses Not on filedocumented in this encounter Care Teams Womens Health Nurse Practitioner Relationship Specialty Start Date End Date Eric Sawyer MD [address] [place] [address] PCP - General Internal Medicine 03/14/18 Jose Baer MD [address] [place] [address] Ship Boss Cardiology 12/03/20 documented as of this encounter
--- OUTSIDE RECORDS SUMMARY | 2024-06-26 10:42 | XMS_ITS | Encounter Summary ---
Author Organization [facility] Address [address] [place] [address] Care Team Providers Care Cycle Specialist Name Role Phone Eric Sawyer MD Primary Care Provider [phone] Jose Baer MD Unavailable [phone] Encounter Details Date Type Department Care Team Description 12/04/2019 [facility] Medical Records [address] [place] [address] Abstract, Provider Social History Tobacco Use Types [...] have Coronavirus / COVID-19? No / Unsure 12/04/2019 11:04 AM EDT documented as of this encounter Plan of Treatment Not on file documented as of this encounter Visit Diagnoses Not on filedocumented in this encounter Care Teams Cycle Specialist Relationship Specialty Start Date End Date Eric Sawyer MD [address] [place] [address] PCP - General Internal Medicine 03/14/18 Jose Baer MD [address] [place] [address] Mobile Ui Developer Cardiology 12/03/20 documented as of this encounter
--- OUTSIDE RECORDS SUMMARY | 2024-06-26 10:42 | XMS_ITS | Encounter Summary ---
Author Organization [facility] Address [address] [place] [address] Care Team Providers Care Station Usher Name Role Phone Eric Sawyer MD Primary Care Provider [phone] Jose Baer MD Unavailable [phone] Encounter Details Date Type Department Care Team Description 05/29/2020 [facility] Medical Records [address] [place] [address] Social History Tobacco Use Types Packs/Day Years [...] on filedocumented in this encounter Care Teams Station Usher Relationship Specialty Start Date End Date Eric Sawyer MD [address] [place] [address] PCP - General Internal Medicine 03/14/18 Jose Baer MD [address] [place], [place] [phone] Field Service Rep Cardiology 12/03/20 documented as of this encounter
--- OUTSIDE RECORDS SUMMARY | 2024-06-26 10:42 | XMS_ITS | Encounter Summary ---
Author Organization [facility] Address [address] [place] [address] Care Team Providers Care Trademark Paralegal Name Role Phone Eric Sawyer MD Primary Care Provider [phone] [facility] Primary Care Provider [facility] Eric Sawyer MD Primary Care Provider [phone] Jose Baer MD Unavailable [phone] Encounter Details Date Type Department Care Team Description 09/04/2016 Orders Only Medical Records [address] [place] [address] Simon Meza MD [address] [place] [address] Social History Tobacco Use Types Packs/Day Years [...] Date/Time Associated Diagnosis Comments OUTSIDE PATHOLOGY Routine 09/01/2016 documented in this encounter Results * OUTSIDE PATHOLOGY (09/01/2016) Simon Meza MD OUTSIDE LAB documented in this encounter Visit Diagnoses Not on filedocumented in this encounter Care Teams Trademark Paralegal Relationship Specialty Start Date End Date Eric Sawyer MD [address] [place] [address] PCP - General Internal Medicine 03/29/15 08/29/17 [facility] Pcp [address] [place] [address] PCP - General Internal Medicine 08/30/17 03/13/18 Eric Sawyer MD [address] [place] [address] PCP - General Internal Medicine 03/14/18 Jose Baer MD [address] [place] [address] Fittings Finisher Cardiology 12/03/20 documented as of this encounter
--- OUTSIDE RECORDS SUMMARY | 2024-06-26 10:42 | XMS_ITS | Encounter Summary ---
Author Organization [facility] Address [address] [place] [address] Care Team Providers Care Customer Development Representative Name Role Phone Eric Sawyer MD Primary Care Provider [phone] [facility], [facility] Primary Care Provider Eric Ricketts MD Primary Care Provider [phone] Jose Baer MD Unavailable [phone] Reason for Visit * Reason Onset Date Comments Provider Call Back 11/13/2016 Encounter Details Date Type Department Care Team Description 11/13/2016 Telephone Adult Medicine B - [address] [address] Eric Sawyer MD [address] [place] [address] Provider Call Back Social History Tobacco Use Types Packs/Day Years [...] encounter Miscellaneous Notes * Telephone Encounter - Kyra Roy L.P.N. - 11/13/2016 10:53 AM EDT This was an FYI that [facility] (correctional counselor/case manager) had a referral for this pt to access for follow up care and they have exhausted all attempts at reaching pt . I advised them I do not see any referral from you in our emr but they say your name is on it. * Telephone Encounter - Teodora Bartholomew - 11/13/2016 10:11 AM EDT Tried calling and contacting patient regardign a refereal they recived on 10/15/16 no answe wouldlikea call from a triage nurse . documented in this encounter Plan of Treatment Not on file documented as of this encounter Visit Diagnoses Not on filedocumented in this encounter Care Teams Customer Development Representative Relationship Specialty Start Date End Date Eric Sawyer MD [address] [place] [address] PCP - General Internal Medicine 03/29/15 08/29/17 [facility], Pcp [address] [place] [address] PCP - General Internal Medicine 08/30/17 03/13/18 Eric Sawyer MD [address] [place] [address] PCP - General Internal Medicine 03/14/18 Jose Baer MD [address] [place] [address] Cabinet Abrasive Sandblaster Cardiology 12/03/20 documented as of this encounter
--- OUTSIDE RECORDS SUMMARY | 2024-06-26 10:42 | XMS_ITS | Encounter Summary ---
Author Organization [facility] Address [address] [place] [address] Care Team Providers Care Director Career Name Role Phone Eric Sawyer MD Primary Care Provider [phone] Jose Baer MD Unavailable [phone] Encounter Details Date Type Department Care Team Description 02/19/2020 [facility] Medical Records [address] [place] [address] Abstract, Provider Social History Tobacco Use Types [...] on filedocumented in this encounter Care Teams Director Career Relationship Specialty Start Date End Date Eric Sawyer MD [address] [place] [address] PCP - General Internal Medicine 03/14/18 Jose Baer MD [address] [place] [address] Coding Quality Analyst Cardiology 12/03/20 documented as of this encounter
--- OUTSIDE RECORDS SUMMARY | 2024-06-26 10:42 | XMS_ITS | Encounter Summary ---
Author Organization [facility] Address [address] [place] [address] Care Team Providers Care Helper Driver Name Role Phone Eric Sawyer MD Primary Care Provider [phone] Shazia, [facility] Primary Care Provider Eric Ricketts MD Primary Care Provider [phone] Jose Baer MD Unavailable [phone] Encounter Details Date Type Department Care Team Description 07/16/2016 [facility] Medical Records [address] [place] [address] Social History Tobacco Use Types Packs/Day Years [...] on filedocumented in this encounter Care Teams Helper Driver Relationship Specialty Start Date End Date Eric Sawyer MD [address] [place] [address] PCP - General Internal Medicine 03/29/15 08/29/17 [facility], Pcp [address] [place] [address] PCP - General Internal Medicine 08/30/17 03/13/18 Eric Sawyer MD [address] [place] [address] PCP - General Internal Medicine 03/14/18 Jose Baer MD [address] [place] [address] Budget Manager Cardiology 12/03/20 documented as of this encounter
--- OUTSIDE RECORDS SUMMARY | 2024-06-26 10:42 | XMS_ITS | Clinical Summary ---
Author Organization [address] [facility] Address [address] [place] [address] Phone Care Team Providers Care Orthotics Prosthetics Technician Name Role Phone Eric Sawyer MD Primary Care Provider [phone] Allergies Active Allergy Reactions Criticality Noted Date [...] MEALS) 270 tablet 1 03/21/19 25 Active sucralfate (CARAFATE) 1 gram tablet Take 1 tablet (1 g total) by mouth 3 (three) times a day before meals. Take 1 hour before meals and at bedtime 90 each 3 05/30/19 25 026 Active Active Problems Problem Noted Date Diagnosed Date COPD exacerbation ([facility] [place]24, [facility] V28) 01/2025 Medial epicondylitis of elbow, right 01/25/2023 Calcification of left hand joint 10/07/2022 Left carpal tunnel syndrome 10/07/2022 Medial epicondylitis of elbow, left 10/07/2022 Stage 2 moderate COPD by GOL D classification ([facility] V24, [facility] V28) 12/17/2021 Overview (11/26/2023): Last Assessment & Plan: Stage [...] disease without esophagi tis 11/23/2018 Opiate dependence ([facility] V24, [facility] V28) Anxiety 03/29/2015 Asthma 03/29/2015 Encounters Date Type Department Care Team Description 05/30/2024 [facility] [address] [place] [address] Eric Sawyer MD Fall 04/14/2024 9:15 AM EST Office Visit Orthopedic Surgery - [place] [address] [facility] [address] [place] [address] Leanne Todd MD Medial epicondylitis of elbow, left (Primary Dx) from Last 3 Months Immunizations Name Administration [...] DIAGNOSTIC CHOLECYSTECTOMY 08/31/2016 PROCEDURE: HISTORICAL CHOLECYSTECTOMY; COMMENT: [facility] LIPOMA RESECTION 04/11/2020 Right PROCEDURE: SKIN TISSUE EXCISION(LIPOMA); COMMENT: excision of an 8cm x 7cm x 3cm subcutaneous lipoma on the right upper back - by Dr. Simon Meza CARPAL TUNNEL RELEASE 02/11/2023 Left Medical History Medical History Date Comments Pancreatitis COPD (chronic obstructive pulmonary disease) (CM S/HCC V24, CMS/HCC V28) stage 3 GERD (gastroesophageal reflux disease) Anxiety [...] Information Value Date Recorded Sex Assigned at Female 05/29/2024 5:15 PM EDT Legal Sex Female 2:37 AM EST Gender Identity Female 05/29/2024 5:15 PM EDT Sexual Orientation Choose not to disclose 2024 5:15 PM EDT Obstetrics History Last Filed Vital Signs Vital [...] 04/14/2024 9:31 AM EST Plan of Treatment Upcoming Encounters Date Type Department Care Team (Late st Contact Info) Description 07/05/2024 1:40 PM EDT Office Visit Gastroenterology - [place] [address] [phone] Kacey Christianson PA [address] [address] 07/14/2024 1:15 PM EDT Office Visit Internal Medicine - [address] [address] Eric Sawyer MD [address] [place] [address] 07/31/2024 10:00 AM EDT Office Visit Pulmonolgy - [place] [address] [phone] [place] [address] [place] [address] Health Maintenance Due Date Last Done Comments Hepatitis A Vaccines (1 of 2 - Risk 2-dose series) 1985 Hepatitis B Vaccines (1 of 3 - 19+ 3-dose series) 1985 Cervical Cancer Screening: Pap Smear 08/14/1987 Zoster Vaccines (1 of 2) 2016 Depression Screening 01/17/2022 HIV Screening 01/17/2022 Hepatitis C Screening 01/17/2022 Medicare Annual Wellness Visit 01/17/2022 Social Influencers of Health Screening 01/17/2022 Breast Cancer Screening 05/09/2023 05/09/19, 01/16/2020, 07/23/2017 COVID-19 Vaccine ( season) 2023 03/01/2021, 05/29/2020, 05/06/2020 DTaP,Tdap,and Td Vaccines (2 - Td or Tdap) 01/14/2024 01/13/2014 Pneumococcal Vaccine: 50+ Years (3 of 3 - PCV20 or PCV21) 02/11/2024 02/10/2019, 11/11/2015, 06/02/2011 Pneumococcal Vaccine: Pediatrics (0 to 5 Years) and At-Risk Patients (6 to 64 Years) (3 of 3 - PCV20 or PCV21) 02/11/2024 02/10/2019, 11/11/2015, 06/02/2011 Influenza Vaccine (Season Ended) 2024 11/20/2021, 10/31/2020, 11/03/2016, Additional history exists Colorectal Cancer Screening: Colonoscopy 11/07/2025 11/08/2023 Cholesterol [...] age to complete this topic Meningococcal B Vaccine Aged Out No l onger eligible based on patient's age to complete [...] AM EST Medial epicondylitis of elbow, left HM COLONOSCOPY Routine 11/08/2023 SCREENING MAMMOGRAPHY BI [...] ?? Verbal ??Pre-procedure timeout performed: yes ?? Leanne Todd MD IN CLINIC/BEDSIDE ORDERABLES Final Result * Colonoscopy (11/08/2023) Colonoscopy No Interpretation [...] mg/dL Blood Venous blood specimen / Unknown [facility] Provider LAB BLOOD ORDERABLES Roslyn l Result from Last 3 Months or Most Recently Relevant to Health Maintenance Insurance [facility] MEDICARE Member Subscriber Plan / Payer (Ef fective 2019-Present) Name:Faith Agrawal Relation to Subscriber:Self Name:Faith Agrawal Payer ID:[id number] Group ID:[id number] Type:Not on file Address: BOX [facility] [place] [id number] Advance Directives Documents on File Type Date Recorded Patient Furniture Shampooer Expl anation Health Care Decision (hx) 09/13/2016 [...] currently active code status orders. Care Teams Orthotics Prosthetics Technician Relationship Specialty Start Date End Date Eric Sawyer MD [address] [place] [address] PCP - General Internal Medicine 03/29/15
--- OUTSIDE RECORDS SUMMARY | 2024-06-26 10:42 | XMS_ITS | Encounter Summary ---
Author Organization [facility] Address [address] [place] [address] Care Team Providers Care Elementary Science Teacher Name Role Phone Eric Sawyer MD Primary Care Provider [phone] Jose Baer MD Unavailable [phone] Encounter Details Date Type Department Care Team Description 07/22/2020 Hospital Medical Records [address] [place] [address] [facility] Social History Tobacco Use Types Packs/Day Years [...] have Coronavirus / COVID-19? No / Unsure 07/01/2020 3:01 PM EDT documented as of this encounter Plan of Treatment Not on file documented as of this encounter Procedures Procedure Name Priority Date/Time Associated Diagnosis Comments OUTSIDE PLAIN FILM Routine 07/23/2020 documented in this encounter Results * OUTSIDE PLAIN FILM (07/23/2020) Provider Abstract RADIOLOGY documented in this encounter Visit Diagnoses Not on filedocumented in this encounter Care Teams Elementary Science Teacher Relationship Specialty Start Date End Date Eric Sawyer MD [address] [place] [address] PCP - General Internal Medicine 03/14/18 Jose Baer MD [address] [place] [address] Title Inspector Cardiology 12/03/20 documented as of this encounter
--- OUTSIDE RECORDS SUMMARY | 2024-06-26 10:42 | XMS_ITS | Encounter Summary ---
Author Organization [facility] Address [address] [place] [address] Care Team Providers Care Acupressurist Name Role Phone Eric Sawyer MD Primary Care Provider [phone] Jose Baer MD Unavailable [phone] Reason for Visit * Reason Comments E-prescribe Rx Request Encounter Details Date Type Department Care Team Description 10/11/2023 Refill Gastroenterology [address] [place] [address] Kacey Christianson DScPAS E-prescribe Rx Request [...] encounter Miscellaneous Notes * Telephone Encounter - Karon Hammond - 10/12/2023 11:18 AM EDT Yoan- 07/15/23 Nov-11/01/23 documented in this encounter Plan of Treatment Not on file documented as of this encounter Visit Diagnoses Not on filedocumented in this encounter Care Teams Acupressurist Relationship Specialty Start Date End Date Eric Sawyer MD [address] [place] [address] PCP - General Internal Medicine 03/14/18 Jose Baer MD [address] [place] [address] Waxer Cardiology 12/03/20 documented as of this encounter
--- OUTSIDE RECORDS SUMMARY | 2024-06-26 10:42 | XMS_ITS | Encounter Summary ---
Author Organization [facility] Address [address] [place] [address] Care Team Providers Care Process Development Associate Name Role Phone Eric Sawyer MD Primary Care Provider [phone] On License Of [facility] Primary [facility] Provider [facility] Eric Sawyer MD Primary Care Provider [phone] Jose Baer MD Unavailable [phone] Encounter Details Date Type Department Care Team Description 02/18/2017 [facility] Medical Records [address] [place] [address] Abstract, Provider Social History Tobacco Use Types [...] Name Priority Date/Time Associated Diagnosis Comments OUTSIDE LAB Routine 02/18/2017 documented in this encounter Results * OUTSIDE LAB (02/18/2017) Provider Abstract LAB documented in this encounter Visit Diagnoses Not on filedocumented in this encounter Care Teams Process Development Associate Relationship Specialty Start Date End Date Eric Sawyer MD [address] [place] [address] PCP - General Internal Medicine 03/29/15 08/29/17 On License Of [facility], Pcp [address] [place] [address] PCP - General Internal Medicine 08/30/17 03/13/18 Eric Sawyer MD [address] [place] [address] PCP - General Internal Medicine 03/14/18 Jose Baer MD [address] [place] [address] Dump Motorman Cardiology 12/03/20 documented as of this encounter
--- OUTSIDE RECORDS SUMMARY | 2024-06-26 10:42 | XMS_ITS | Encounter Summary ---
Author Organization [facility] Address [address] [place] [address] Care Team Providers Care Manager Of Pharmacy Name Role Phone Eric Sawyer MD Primary Care Provider Shazia, [facility] Primary Care Provider Eric Ricketts MD Primary Care Provider [phone] Jose Baer MD Unavailable [phone] Encounter Details Date Type Department Care Team Description 09/28/2016 [facility] Medical Records [address] [place] [address] Abstract, Provider Social History Tobacco Use Types [...] on filedocumented in this encounter Care Teams Manager Of Pharmacy Relationship Specialty Start Date End Date Eric Sawyer MD [address] [place] [address] PCP - General Internal Medicine 03/29/15 08/29/17 [facility], Pcp [address] [place] [address] PCP - General Internal Medicine 08/30/17 03/13/18 Eric Sawyer MD [address] [place] [address] PCP - General Internal Medicine 03/14/18 Jose Baer MD [address] [place] [address] Supervising Librarian Cardiology 12/03/20 documented as of this encounter
--- OUTSIDE RECORDS SUMMARY | 2024-06-26 10:42 | XMS_ITS | Encounter Summary ---
Author Organization [facility] Address [address] [place] [address] Care Team Providers Care Operations Accountant Name Role Phone Eric Sawyer MD Primary Care Provider [phone] Jose Baer MD Unavailable [phone] Encounter Details Date Type Department Care Team Description 11/05/2023 Release of Information Medical Records [address] [place] [address] Abstract, Provider Social History Tobacco Use Types [...] on filedocumented in this encounter Care Teams Operations Accountant Relationship Specialty Start Date End Date Eric Sawyer MD [address] [place] [address] PCP - General Internal Medicine 03/14/18 Jose Baer MD [address] [place] [address] Flake Or Shred Roll Operator Cardiology 12/03/20 documented as of this encounter
--- OUTSIDE RECORDS SUMMARY | 2024-06-26 10:42 | XMS_ITS | Encounter Summary ---
Author Organization [facility] Address [address] [place] [address] Care Team Providers Care Guitar Technician Name Role Phone Eric Sawyer MD Primary Care Provider [phone] Shaiza, [facility] Primary Care Provider Eric Ricketts MD Primary Care Provider [phone] Jose Baer MD Unavailable [phone] Encounter Details Date Type Department Care Team Description 01/21/2016 [facility] Medical Records [address] [place] [address] Social History Tobacco Use Types Packs/Day Years [...] on filedocumented in this encounter Care Teams Guitar Technician Relationship Specialty Start Date End Date Eric Sawyer MD [address] [place] [address] PCP - General Internal Medicine 03/29/15 08/29/17 [facility], Pcp [address] [place] [address] PCP - General Internal Medicine 08/30/17 03/13/18 Eric Sawyer MD [address] [place] [address] PCP - General Internal Medicine 03/14/18 Jose Baer MD [address] [place] [address] Drywall Foreman Cardiology 12/03/20 documented as of this encounter
--- OUTSIDE RECORDS SUMMARY | 2024-06-26 10:42 | XMS_ITS | Encounter Summary ---
Author Organization [facility] Address [address] [place] [address] Care Team Providers Care Map Clerk Name Role Phone Eric Sawyer MD Primary Care Provider [phone] Jose Baer MD Unavailable [phone] Reason for Visit * Reason Onset Date Comments refill request 05/26/2021 Encounter Details Date Type Department Care Team Description 05/26/2021 Refill Adult Medicine [address] [address] Eric Sawyer MD [address] [place] [address] refill request Social History Tobacco Use Types [...] suspected to have Coronavirus/COVID-19? No / Unsure 05/08/2021 1:15 PM EDT documented as of this encounter Miscellaneous Notes * Telephone Encounter - Rhiannon Dewey M.A. - 05/27/2021 3:08 PM EDT Faxed to pharmacy * Telephone Encounter - Brenda Dejesus - 05/27/2021 2:44 PM EDT Date of last office visit 04/23/21 pended appt 06/27/21. Lab Results Component Value Date NA 138 12/02/2020 K 4.2 12/02/2020 CO2 30 12/02/2020 CL 100 12/02/2020 BUN 14 12/02/2020 CREAT 0.79 12/02/2020 GLU 98 12/02/2020 CA 9.8 12/02/2020 GFR > 60 12/02/2020 * Telephone Encounter - Ella Mcmillan - 05/26/2021 2:24 PM EDT Patient would like script to be: E-PRESCRIBED/FAXED TO PHARMACY WHEN WAS THE PATIENT'S LAST APPOINTMENT IN ADULT MEDICINE? 04-23-21 WHEN WAS THE LAST TIME THE PATIENT SAW THEIR PCP? 12-30-20 Does patient have an upcoming appointment? Yes 06-27-21 (THE MEDICATION REQUESTED IS ON THE MED LIST ABOVE) All of the medications requested were on the CURRENT MEDS list Did you check the Pharmacy information above?: YES Patient wants: 90 -day supply Is this a mail order prescription request ? NO If the refill is from a FAXED refill request what is the RX # listed on the fax? N/A Patients current insurance carrier is: Payor: [employer] [facility] MCR / Plan: [facility] / Product Type: HMO [id number] documented in this encounter Plan of Treatment Not on file documented as of this encounter Visit Diagnoses Not on filedocumented in this encounter Care Teams Map Clerk Relationship Specialty Start Date End Date Eric Sawyer MD [address] [place] [address] PCP - General Internal Medicine 03/14/18 Jose Baer MD [address] [place] [address] Grizzly Worker Cardiology 12/03/20 documented as of this encounter
--- OUTSIDE RECORDS SUMMARY | 2024-06-26 10:42 | XMS_ITS | Encounter Summary ---
Author Organization [facility] Address [address] [place] [address] Care Team Providers Care Swim Coach Name Role Phone Community, Pcp Primary Care Provider Eric Ricketts MD Primary Care Provider [phone] Jose Baer MD Unavailable [phone] Encounter Details Date Type Department Care Team Description 12/15/2017 Grain Cleaner Report Medical Records [address] [place] [address] Network, Behavioral Health Social History Tobacco Use Types Packs/Day Years [...] on filedocumented in this encounter Care Teams Swim Coach Relationship Specialty Start Date End Date Community, Pcp PCP - General Internal Medicine 08/30/17 03/13/18 Eric Sawyer MD [address] [place] [address] PCP - General Internal Medicine 03/14/18 Jose Baer MD [address] [place] [address] Edge Blacker Cardiology 12/03/20 documented as of this encounter
--- OUTSIDE RECORDS SUMMARY | 2024-06-26 10:42 | XMS_ITS | Encounter Summary ---
Author Organization [facility] Address [address] [place] [address] Care Team Providers Care Lubricating Engineer Name Role Phone Eric Sawyer MD Primary Care Provider [phone] Jose Baer MD Unavailable [phone] Reason for Visit * Reason Onset Date Comments medication problems 07/14/2021 Encounter Details Date Type Department Care Team Description 07/14/2021 Telephone Adult Medicine [address] [address] Eric Sawyer MD [address] [place] [address] medication problems Social History Tobacco Use Types Packs/Day Years [...] Telephone Encounter - Rhiannon Dewey M.A. - 07/14/2021 3:10 PM EDT Spoke to pt relayed message as documented below. * Telephone Encounter - Eric Sawyer MD - 07/14/2021 2:05 PM EDT Prednisone refilled if symptoms not better should consider going to the emergency room * Telephone Encounter - Iman Tolbert L.P.N. - 07/14/2021 1:36 PM EDT Spoke w/ pt. Requesting refill of prednisone taper for wheezing and SOB. She reports that she saw Dr. Sawyer on 06/27/21 for these sx and was provided a 10 day prednisone taper for asthma exacerbation. Completed course of treatment. She states that sx never totally subsided. Using her albuterol inhaler 2-4 x per day which provides some relief. Coughing up clear sputum. No fever/chills. No chest pain. She does not have transportation to come in to the office. She does have [employer] insurance so I advised the pt that she may call [facility] for a house visit. She declines. Just requesting prednisone RX.Please advise. Thank you. * Telephone Encounter - Ella Mcmillan - 07/14/2021 1:22 PM EDT Symptoms patient is presenting: pt asking for an extension of prednisone 10MG because wheezing symptoms haven't Fully cleared For ALL patients calling to schedule any appointment (routine, sick visit, follow up, consult, etc.) in the outpatient setting please ask the following questions: ?? Do you have fever of higher than 101, sore throat with difficulty swallowing or severe shortnessof breath? NO If YES to any of these above symptoms, send a message to triage and do not book. Red dot. If no, an audio or video visit should be booked. ?? Have you had close contact with someone with Coronavirus in the last 14 days? NO ?? Have you traveled abroad? NO ?? Have you traveled recently to another state outside of [place], [place], [place], [place], [place], [place], [place]? NO o If yes, did you quarantine for 14 days or have a negative covid test? NO If yes to any of the above, patient is not to be scheduled in office until after 14 day quarantine or negative covid test. If pain or injury related was it due to an accident at work or from a motor vehicle accident? NO If yes, gather 3rd libertarian insurance information Date of accident/Injury: How long has patient had these symptoms?: PCP: Eric Sawyer Payor: [email or web address] MCR / Plan: [facility] / Product Type: HMO [id number] documented in this encounter Plan of Treatment Not on file documented as of this encounter Visit Diagnoses Not on filedocumented in this encounter Care Teams Lubricating Engineer Relationship Specialty Start Date End Date Eric Sawyer MD [address] [place] [address] PCP - General Internal Medicine 03/14/18 Jose Baer MD [address] [place] [address] Green Building Architect Cardiology 12/03/20 documented as of this encounter
--- OUTSIDE RECORDS SUMMARY | 2024-06-26 10:42 | XMS_ITS | Clinical Summary ---
Author Organization [facility] Address [address] [facility] [place] [address] Care Team Providers Care Sanitarian Inspector Name Role Phone Eric Sawyer MD Primary Care Provider [phone] Jose Baer MD Unavailable [phone] Allergies Active Allergy Reactions Severity Noted Date Comments Covid-19 (Mrna) Vaccine Anaphylaxis High 10/31/2020 Tongue swelling - tx'd in ED Nsaids 03/29/2015 hives Medications Medication Sig Dispensed Refills Start Date End Date Status acetaminophen (TYLENOL) 325 MG tablet Take 650 mg by mouth every 6 hours as needed. 0 Active trazodone (DESYREL) 50 MG tabletIndications:Sl eep disturbance TAKE 1 TABLET BY MOUTH AT BEDTIME 90 Tablet 0 12/08/2021 Active Fluticasone-Umeclidi n-Vilant (Trelegy Ellipta) 200-62.5-25 MCG/ACT AEROSOL POWDER,BREATH ACTIVATEDIndications :Stage 2 moderate COPD by GOLD classification ([facility]) Inhale 200 mcg into the lungs daily. 1 Each 3 12/21/2022 Active albuterol (PROVENTIL) (2.5 MG/3ML) 0.083% nebulizer solutionIndications: Stage 2 moderate COPD by GOLD classification ([facility]) Take 1 Vial by nebulization 4 times daily. 150 mL 2 12/21/2022 Active Roflumilast 500 MCG Tab Take by mouth. 0 Active ALBUTEROL SULFATE (ProAir HFA) 108 (90 Base) MCG/ACT Aero Soln Inhale 2 Puffs into the lungs 4 times daily as needed for Cough or Wheezing. 8.5 g 1 05/31/2023 Active ondansetron (Zofran ODT) 4 MG disintegrating tablet Take 1 Tablet by mouth every 8 hours as needed for Nausea. 30 Tablet 3 07/15/2023 Active methylPREDNISolone 4 MG Tablet Therapy Pack Take 1 Package by mouth See Admin Instructions. Dispense 1 packet ; see instructions on packet 1 Each 0 07/28/2023 Active sucralfate (CARAFATE) 1 GM/10ML suspension TAKE 10 ML BY MOUTH 2 TIMES DAILY (BEFORE MEALS) FOR 30 DAYS. 1800 mL 1 10/12/2023 Active azithromycin (ZITHROMAX) 500 MG tablet Take 1 Tablet by mouth three times a week. 0 Active bisacodyl (DULCOLAX) 5 MG EC tablet Take 2 tablets by mouth right before your first dose of liquid prep. 2 Tablet 0 11/01/2023 Active polyethylene glycol (GoLYTELY) 236 g suspension Take 240 mL by mouth once for 1 dose. Take 4L by mouth once for one dose. May substitue any PEG. Starting at 6PM the night before your procedure drink 1 8oz glasses at your own pace until rectals run clear. 4000 mL 0 11/01/2023 Active colestipol (COLESTID) 5 g granules Take 5 g by mouth 2 times daily. 500 g 3 11/04/2023 5 Active Colestipol HCl 1 g Tab TAKE 1 TABLET BY MOUTH 3 TIMES DAILY (WITH MEALS) FOR 360 DAYS. 270 Tablet 1 12/01/2023 5 Active Active Problems Problem Noted Date Medial epicondylitis of elbow, right Medial epicondylitis of elbow, left 09/10 Calcification of left hand joint 023 Left carpal tunnel syndrome 10/07/2022 Stage 2 moderate COPD by GOLD classifica tion 12/17/2021 Last Assessment & Plan: Stage II COPD. Advised to quit smoking. 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 Precordial pain 01/07/2021 Mixed hyperlipidemia 01/07/2021 Allergic reaction to vaccine 10/31/2020 Gastroesophageal reflux disease without esophagitis 11/23/2018 Tobacco abuse 08/05/2018 History of cholecystectomy 10/22/2016 Opiate dependence 08/31/2016 Asthma 03/29/2015 Anxiety 03/29/2015 Immunizations Name Administration Dates Next Due COVID-19 (Moderna) 03/01/2021 COVID-19 (Pfizer) 05/29/2020,05/06/2020 Influenza (> 6 Months) 11/11/2015 Influenza Flu (PT Reported) 11/20/2021 Influenza Vaccine-preservati ve Free-quadrivalent 4 Years 10/31/2020 Influenza Vaccine-quadrivalent 4 Years Plus 10/10 Pneumoccoccal(Adult) Polysaccharide PPSV23 02/10 Pneumococcal Conjugate PCV-13 11/11/2015 Family History Medical History Relation Name Comments CA Breast Aunt 1 mat aunt cancer ovarian Aunt 1 mat aunt father's side CA Breast Aunt 2 pat aunt Cancer of the Breast Aunt 2 pat aunt mother' s side, bilateral CA Breast Other p.cousin CA Breast Sister 1 dx;d 40s Relation Name Status [...] file Not on file Not on file Last Filed Vital Signs Vital Sign Reading Time Taken Comments Blood Pressure 110/64 11/01/2023 11:28 AM EDT Pulse 94 11/01/2023 11:28 AM EDT Temperature 36.4 ??C (97.5 ??F) 01/25/2023 1 1:46 AM EST Respiratory Rate 18 07/28/2023 10:1 2 AM EDT Oxygen Saturation 94% 11/01/2023 11: 28 AM EDT Inhaled Oxygen Concentration - - Weight 55.2 kg (121 lb 12.8 oz) 024 11:28 AM EDT Height 162.6 cm (5' 4 ) 11/01/2023 11:2 8 AM EDT Body Mass Index 20.91 11/01/2023 11:28 AM EDT Plan of Treatment Health Maintenance Due Date Last Done Comments DEPRESSION SCREEN 1978 HEPATITIS C SCREENING 1984 DTAP/TDAP/TD (1 - Tdap) 1985 CERVICAL CANCER SCREENING 08/14/1987 SHINGLES VACCINE (1 of 2) 2016 BASELINE HEALTH EXAM 40-64 02/10/202102/10, 04/08/2017, 03/29/2015 (Completed), Additional history exists MAMMOGRAM 05/08/2022 05/08/2021, 12/0 09/2019, 07/23/2017, Additional history exists Covid-19 Vaccine (2022-2 4 season) 2023 03/01/2021, 05/29/2020, 05/06/2020 DEPRESSION SCREENING/FOLLOWUP 02/09/2024, 09/08/2021, 06/27/2021, Additional history exists SOCIAL NEEDS SCREENING 02/09/2024 TOBACCO CHECK/ADVISE 04/22/2024 04/22/2022, 04/08/2022, 04/06/2022, Additional history exists INFLUENZA (Season Ended) 2024 022, 10/31/2020, 12/09/2017 (External Completion of Vaccination per patient), Additional history exists CHOLESTEROL SCREENING 12/02/2025 12/02/2020 , 03/02/2019, 02/10/2019, Additional history exists PNEUMOCOCCAL VACCINE FOR HIG H RISK PATIENTS (#2) 08/14/2031 02/10/2019, 11/11/2015 COLON CANCER SCREENING 11/07/2033 11/08/2023 Care Teams Sanitarian Inspector Relationship Specialty Start Date End Date Eric Sawyer MD [address] [place] [address] PCP - General Internal Medicine 03/14/18 Jose Baer MD [address] [place] [address] Retail Shift Leader Cardiology 12/03/20
--- OUTSIDE RECORDS SUMMARY | 2024-06-26 10:42 | XMS_ITS | Encounter Summary ---
Author Organization [facility] Address [address] [place] [address] Care Team Providers Care Software Sales Name Role Phone Eric Sawyer MD Primary Care Provider [phone] Jose Baer MD Unavailable [phone] Encounter Details Date Type Department Care Team Description 04/29/2023 Seafood And Service Meat Manager Report Medical Records [address] [place] [address] Basia Huston PA-C Social History Tobacco Use Types Packs/Day [...] on filedocumented in this encounter Care Teams Software Sales Relationship Specialty Start Date End Date Eric Sawyer MD [address] [place] [address] PCP - General Internal Medicine 03/14/18 Jose Baer MD [address] [place] [address] [id number] Vocational Rehabilitation Technician Cardiology 12/03/20 documented as of this encounter
--- OUTSIDE RECORDS SUMMARY | 2024-06-26 10:42 | XMS_ITS | Encounter Summary ---
Author Organization [facility] Address [address] [place] [address] Care Team Providers Care Hub Inventory Specialist Name Role Phone Eric Sawyer MD Primary Care Provider [phone], [facility] Primary Care Provider Eric Ricketts MD Primary Care Provider Jose Baer MD Unavailable [phone] Encounter Details Date Type Department Care Team Description 11/18/2016 Release of Information Medical Records [address] [place] [address] Abstract, Provider Social History Tobacco Use Types [...] on filedocumented in this encounter Care Teams Hub Inventory Specialist Relationship Specialty Start Date End Date Eric Sawyer MD [address] [place] [address] PCP - General Internal Medicine 03/29/15 08/29/17 [facility], Pcp [address] [place] [address] PCP - General Internal Medicine 08/30/17 03/13/18 Eric Sawyer MD [address] [place] [address] PCP - General Internal Medicine 03/14/18 Jose Baer MD [address] [place] [address] Roof Technician Cardiology 12/03/20 documented as of this encounter
--- OUTSIDE RECORDS SUMMARY | 2024-06-26 10:43 | XMS_ITS | Encounter Summary ---
Author Organization [facility] Address [address] [place] [address] Care Team Providers Care Community Health Educator Name Role Phone Eric Sawyer MD Primary Care Provider [phone] Jose Baer MD Unavailable [phone] Encounter Details Date Type Department Care Team Description 11/18/2018 [facility] Medical Records [address] [place] [address] Abstract, Provider Social History Tobacco Use Types [...] on filedocumented in this encounter Care Teams Community Health Educator Relationship Specialty Start Date End Date Eric Sawyer MD [address] [place] [address] PCP - General Internal Medicine 03/14/18 Jose Baer MD [address] [place], [place] [phone] Java Tech Cardiology 12/03/20 documented as of this encounter
--- OUTSIDE RECORDS SUMMARY | 2024-06-26 10:43 | XMS_ITS | Encounter Summary ---
Author Organization [facility] Address [address] [place] [address] Care Team Providers Care Lead Technical Writer Name Role Phone Eric Sawyer MD Primary Care Provider [phone] Jose Baer MD Unavailable [phone] Encounter Details Date Type Department Care Team Description 03/16/2019 Telephone Gastroenterology - [address] [place] [address] Kash Romo MD [address] [place] [address] Social History Tobacco Use Types Packs/Day Years [...] encounter Miscellaneous Notes * Telephone Encounter - Masha Lindquist - 03/16/2019 7:56 AM EST All attempts to reach patient to schedule colonoscopy have been exhausted. documented in this encounter Plan of Treatment Not on file documented as of this encounter Visit Diagnoses Not on filedocumented in this encounter Care Teams Lead Technical Writer Relationship Specialty Start Date End Date Eric Sawyer MD [address] [place], [place] [phone] PCP - General Internal Medicine 2/4/19 Jose Baer MD [address] [place] [address] Psychiatric Tech Cardiology 12/03/20 documented as of this encounter
--- OUTSIDE RECORDS SUMMARY | 2024-06-26 10:43 | XMS_ITS | Encounter Summary ---
Author Organization [facility] Address [address] [place] [address] Care Team Providers Care Head Start Assistant Teacher Name Role Phone Eric Sawyer MD Primary Care Provider [phone] [facility] Primary Care Provider Eric Ricketts MD Primary Care Provider [phone] Jose Baer MD Unavailable [phone] Encounter Details Date Type Department Care Team Description 05/24/2015 Release of Information Medical Records [address] [place] [address] Abstract, Provider Social History Tobacco Use Types Packs/Day Years Used Date Smoking Tobacco: Every Day Cigarettes 0.5 Smokeless Tobacco: Current Alcohol Use Standard Drinks/Week Comments Yes 0 [...] on filedocumented in this encounter Care Teams Head Start Assistant Teacher Relationship Specialty Start Date End Date Eric Sawyer MD [address] [place] [address] PCP - General Internal Medicine 03/29/15 08/29/17 [facility], Pcp [address] [place] [address] PCP - General Internal Medicine 08/30/17 03/13/18 Eric Sawyer MD [address] [place] [address] PCP - General Internal Medicine 03/14/18 Jose Baer MD [address] [place] [address] Pipefitter Helper Cardiology 12/03/20 documented as of this encounter
--- OUTSIDE RECORDS SUMMARY | 2024-06-26 10:43 | XMS_ITS | Encounter Summary ---
Author Organization [facility] Address [address] [place] [address] Care Team Providers Care Resource Conservationist Name Role Phone Eric Sawyer MD Primary Care Provider [phone] Jose Baer MD Unavailable [phone] Encounter Details Date Type Department Care Team Description 10/12/2018 [facility] Medical Records [address] [place] [address] Abstract, Provider Social History Tobacco Use Types [...] on filedocumented in this encounter Care Teams Resource Conservationist Relationship Specialty Start Date End Date Eric Sawyer MD [address] [place] [address] PCP - General Internal Medicine 03/14/18 Jose Baer MD [address] [place], [place] [phone] Aircraft Cleaning Supervisor Cardiology 12/03/20 documented as of this encounter
--- OUTSIDE RECORDS SUMMARY | 2024-06-26 10:43 | XMS_ITS | Encounter Summary ---
Author Organization [facility] Address [address] [place] [address] Care Team Providers Care Surgery Consultant Name Role Phone Eric Sawyer MD Primary Care Provider [phone] Jose Baer MD Unavailable [phone] Encounter Details Date Type Department Care Team Description 11/25/2018 [facility] Medical Records [address] [place] [address] Abstract, Provider Social History Tobacco Use Types [...] on filedocumented in this encounter Care Teams Surgery Consultant Relationship Specialty Start Date End Date Eric Sawyer MD [address] [place] [address] PCP - General Internal Medicine 03/14/18 Jose Baer MD [address] [place], [place] [phone] Oven Heater Cardiology 12/03/20 documented as of this encounter
--- OUTSIDE RECORDS SUMMARY | 2024-06-26 10:43 | XMS_ITS | Encounter Summary ---
Author Organization [facility] Address [address] [place] [address] Care Team Providers Care Sharebroker Name Role Phone Eric Sawyer MD Primary Care Provider [phone] [facility], [facility] Primary Care Provider [facility] Eric Sawyer MD Primary Care Provider [phone] Jose Baer MD Unavailable [phone] Encounter Details Date Type Department Care Team Description 12/05/2015 Controlled Substance Contract with [facility] Medical Records [address] [place] [address] Abstract, Provider Social History Tobacco Use Types [...] on filedocumented in this encounter Care Teams Sharebroker Relationship Specialty Start Date End Date Eric Sawyer MD [address] [place] [address] PCP - General Internal Medicine 03/29/15 08/29/17 [facility], Pcp [address] [place] [address] PCP - General Internal Medicine 08/30/17 03/13/18 Eric Sawyer MD [address] [place] [address] PCP - General Internal Medicine 03/14/18 Jose Baer MD [address] [place] [address] Record Label Internship Cardiology 12/03/20 documented as of this encounter
--- OUTSIDE RECORDS SUMMARY | 2024-06-26 10:43 | XMS_ITS | Encounter Summary ---
Author Organization [facility] Address [address] [place] [address] Care Team Providers Care Roads Superintendent Name Role Phone Eric Sawyer MD Primary Care Provider [phone] Replaced By [facility], Pcp Primary Care Provider Eric Ricketts MD Primary Care Provider [phone] Replaced By [facility], Pcp Primary Care Provider Eric Ricketts MD Primary Care Provider [phone] Jose Baer MD Unavailable [phone] Encounter Details Date Type Department Care Team Description 02/03/2013 [facility] Medical Records [address] [place] [address] Abstract, Provider Social History Tobacco Use Types Packs/Day Years Used Date Smoking Tobacco: Never Assessed Sex Assigned at Date Recorded Not on file Job Start Date Occupation Industry Not on file Not on file Not on file documented as of this encounter Plan of Treatment Not on file documented as of this encounter Procedures Procedure Name Priority Date/Time Associated Diagnosis Comments OUTSIDE CT Routine 02/03/2013 documented in this encounter Results * OUTSIDE CT (02/03/2013) Provider Abstract RADIOLOGY documented in this encounter Visit Diagnoses Not on filedocumented in this encounter Care Teams Roads Superintendent Relationship Specialty Start Date End Date Eric Sawyer MD [address] [place] [address] PCP - General Internal Medicine 02/22/15 03/10/15 Replaced By [facility], Pcp [address] [place] [address] PCP - General Internal Medicine 03/11/15 03/28/15 Eric Sawyer MD [address] [place] [address] PCP - General Internal Medicine 03/29/15 08/29/17 Replaced By [facility], [address] [address] PCP - General Internal Medicine 08/30/17 03/13/18 Eric Sawyer MD [address] [place] [address] PCP - General Internal Medicine 03/14/18 Jose Baer MD [address] [place] [address] Librarian Helper Cardiology 12/03/20 documented as of this encounter
--- OUTSIDE RECORDS SUMMARY | 2024-06-26 10:43 | XMS_ITS | Encounter Summary ---
Author Organization [facility] Address [address] [place] [address] Care Team Providers Care Step Down Nurse Name Role Phone Eric Sawyer MD Primary Care Provider [phone] [facility], [facility] Primary Care Provider Eric Ricketts MD Primary Care Provider [phone] Jose Baer MD Unavailable [phone] Encounter Details Date Type Department Care Team Description 04/01/2015 Release of Information Medical Records [address] [place] [id number] Abstract, Provider Social History Tobacco Use Types [...] on filedocumented in this encounter Care Teams Step Down Nurse Relationship Specialty Start Date End Date Eric Sawyer MD [address] [place] [address] PCP - General Internal Medicine 03/29/15 08/29/17 [facility], Pcp [address] [place] [address] PCP - General Internal Medicine 08/30/17 03/13/18 Eric Sawyer MD [address] [place] [address] PCP - General Internal Medicine 03/14/18 Jose Baer MD [address] [place] [address] [employer] Cardiology 12/03/20 documented as of this encounter
--- OUTSIDE RECORDS SUMMARY | 2024-06-26 10:43 | XMS_ITS | Encounter Summary ---
Author Organization [facility] Address [address] [facility] [place] [address] Care Team Providers Care Painter Shipyard Name Role Phone Eric Sawyer MD Primary Care Provider [phone] [facility], Pcp Primary Care Provider Eric Ricketts MD Primary Care Provider [phone] [facility], Pcp Primary Care Provider Eric Ricketts MD Primary Care Provider [phone] Jose Baer MD Unavailable [phone] Encounter Details Date Type Department Care Team Description 05/02/2014 SCAN Medical Records [address] [place] [id number] Abstract, Provider Social History Tobacco Use Types Packs/Day Years Used Date Smoking Tobacco: Never Assessed Sex Assigned at Date Recorded Not on file Job Start Date Occupation Industry Not on file Not on file Not on file documented as of this encounter Plan of Treatment Not on file documented as of this encounter Procedures Procedure Name Priority Date/Time Associated Diagnosis Comments OUTSIDE MRI/MRA Routine 05/02/2014 documented in this encounter Results * OUTSIDE MRI/MRA (05/02/2014) Provider Abstract RADIOLOGY documented in this encounter Visit Diagnoses Not on filedocumented in this encounter Care Teams Painter Shipyard Relationship Specialty Start Date End Date Eric Sawyer MD [address] [place] [address] PCP - General Internal Medicine 02/22/15 03/10/15 [facility], Pcp [address] [place] [address] PCP - General Internal Medicine 2/1/16 2/18/16 Eric Sawyer MD [address] [place] [address] PCP - General Internal Medicine 03/29/15 08/29/17 [facility], [address] [address] PCP - General Internal Medicine 08/30/17 03/13/18 Eric Sawyer MD [address] [place] [address] PCP - General Internal Medicine 03/14/18 Jose Baer MD [address] [place] [address] [employer] Cardiology 12/03/20 documented as of this encounter
--- NOTE | 2024-06-26 11:51 | AM.OFFWIN_ITS ---
Intake Vital Signs 06/26/24 11:55 Weight 116 lb BP 110/74 Blood Pressure Location Rt brachial Position Sitting Pulse 64 Pulse Source Pulse Oximeter Pulse Oximetry (%) 96 Oxygen Delivery Method Room Air Intake Visit Reasons: EP COPD, sob, sinus Intake Note: Patient here for SOB and sinus pressure that has been present for a couple of days. hx of COPD. Patient Tobacco Use Status: Current everyday Tobacco user Allergies buprenorphine [From SUBOXONE] Allergy (Severe, Verified 06/26/24 11:57) ANAPHYLAXIS naloxone [From SUBOXONE] Allergy (Severe, Verified 06/26/24 11:57) ANAPHYLAXIS NSAIDS (Non-Steroidal Anti-Inflamma [Nsaids] Allergy (Unknown, Verified 06/26/24 11:57) RASH, ITCHING Do you need a note to return to daycare/school/sports/work: No HPI HPI Comments History of Present Illness Details History of Present Illness - The patient is a 58-year-old female pr esenting with respiratory symptoms and sinus pain x 3 days. - She reports shortness of breath and lo ud wheezing affecting her sleep, which started three days ago. - She has a cough with accompanying jabari estion, and experienced a slight fever of 99?F yesterday. - She identifies a sulfur-like nasal odo r. - Her respiratory symptoms have intensif ied, necessitating increased usage of her albuterol nebulizer and rescue inhaler, beyond her maintenance medication, Trelegy. - The patient attended a recent family g athering with symptomatic individuals and continues to smoke. Physical Exam General: Cooperative, healthy appearing, comfortable, no acute distress and well developed Orientation: Patient oriented x3 Limitations: No limitations Head: Normal to inspection Ears: Hearing grossly normal bilaterally Nose: Normal External nose present, clear nasal discharge Face and sinus: Maxillary sinuses TTP Eyes: Appearance normal, both eyes and all related structures Neck: Normal visual inspection and Yes full ROM Respiratory: Normal respiratory effort and able to speak in complete sentences. Exp wheezing Cardiovascular: Regular rate and rhythm. Normal S1 and S2 Skin: No rashes or lesions noted Neuro: Patient oriented x3 Extremities: Normal to inspection [facility] Social History Patient Tobacco Use Status: Current everyday Tobacco user Review of Systems Const All systems reviewed & are unremarkable except as noted in HPI and below Physical Exam Vital Signs: Last Vital Signs Pulse 64 06/26/24 11:55 BP 110/74 06/26/24 11:55 Pulse Ox 96 06/26/24 11:55 Oxygen Delivery Method Room Air 06/26/24 11:55 Assessment & Plan Assessment & Plan (1) Lower respiratory infection (e.g., bronchitis, pneumonia, pneumonitis, pulmonitis): Code(s): J22 - Unspecified acute lower respiratory infection Plan: The management plan for this visit includes medicating for the suspected ba cterial sinusitis with a Z-Mitch and addressing symptom relief with steroids. Prednisone is prescribed at 50 mg daily for five days to reduce inflammation. Continued use of albuterol via nebulizer and rescue inhaler is advised to manage COPD-related symptoms. The patient is instructed on using Flonase for nasal obstruction relief. Through a combination of antibiotic and anti-inflammatory therapy, the plan addresses infection and supports respiratory function. The patient is advised about the importance of adhering to the prescribed regimen to optimize outcomes and minimize exacerbation risk. Patient was informed and verbally consented to the use of an ambient scribe for clinic note documentation during this visit. (2) Sinusitis, acute maxillary: Code(s): J01.00 - Acute maxillary sinusitis, unspecified Qualifiers: Recurrence: recurrent Qualified Code(s): J01.01 - Acute recurrent maxillary sinusitis Plan: as above Medications: New azithromycin For 250 mg dose pack: take 500 mg today (day 1), then 250 mg for 4 days (days 2-5) PO 6 tabs 0RF prednisone 50 mg PO QAM 5 tabs 0RF Coding Level of Care Code New Pt Level 3 (30792) Diagnoses Lower respiratory infection (e.g., bronchitis, pneumonia, pneumonitis, pulmonitis) J22 Acute recurrent maxillary sinusitis J01.01 Recurrence: recurrent
[2024-06-26 11:55] VITALS: BP 110/74; PULSE 64; O2SAT 96
== END 2024-06-26 12:20 | disposition home or self-care (01) ==
PROVIDERS: PCP Internal Medicine; Visit Provider Physician Assistant
DX: J22 Unspecified acute lower respiratory infection (principal); J01.01 Acute recurrent maxillary sinusitis

== ENCOUNTER → 2024-06-26 10:09 | Outpatient (BNVA) | payer OTHER, SELFPAY | PROVIDERS: PCP Internal Medicine; Visit Provider Physician Assistant | DX: J22 Unspecified acute lower respiratory infection (principal); J01.01 Acute recurrent maxillary sinusitis | CPT/HCPCS: 99212 ==

== ENCOUNTER 2024-07-13 10:08 | Outpatient (AMB) | payer OTHER, SELFPAY ==
[2024-07-13 10:10] VITALS: BP 144/92; PULSE 102; TEMP 37.1; O2SAT 95; BMI 20.2
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
== END 2024-07-13 11:09 | disposition home or self-care (01) ==
PROVIDERS: PCP Internal Medicine; Visit Provider Nurse Practitioner Family
DX: R05.2 Subacute cough (principal); R06.2 Wheezing; J44.1 Chronic obstructive pulmonary disease with (acute) exacerbation

== ENCOUNTER → 2024-07-13 10:08 | Outpatient (BNVA) | payer OTHER, SELFPAY | PROVIDERS: PCP Internal Medicine; Visit Provider Nurse Practitioner Family | DX: J44.1 Chronic obstructive pulmonary disease with (acute) exacerbation (principal); R06.2 Wheezing | CPT/HCPCS: 94640; 99212 ==

== ENCOUNTER 2024-08-17 11:38 | Outpatient (AMB) | payer OTHER, SELFPAY ==
[2024-08-17 11:39] VITALS: BP 132/64; PULSE 82; TEMP 37.2; O2SAT 96; BMI 20.5
--- NOTE | 2024-08-17 11:39 | AM.OFFWIN_ITS ---
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 Pt has h/o COPD with frequent URI. Pt was recently seen by me 07/2024 for similar symptoms and was prescribed Abx and prednisone. Pt has been out of her medications (Trelegy) and has been trying to contact her PCP and Pulmonology for refills with no luck. Pt continues to smoke cigarettes but has cut down on the amount of cigarrettes she smokes daily. [facility] Medical History (Updated 07/13/24 @ 10:42 by Negrita Hutton NP) COPD with acute exacerbation Cough Wheezing on auscultation Social History Patient Tobacco Use Status: Current everyday Tobacco user Patient : No Review of Systems Const All systems reviewed & are unremarkable except as noted in HPI and below Physical Exam Vital Signs: Last Vital Signs Temp 98.9 F 08/17/24 11:39 Pulse 82 08/17/24 11:39 BP 132/64 08/17/24 11:39 Pulse Ox 96 08/17/24 11:39 BMI result Body Mass Index 20.5 Const General: comfortable and no acute distress Nutritional Appearance: thin Orientation/consciousness: patient oriented x3 Resp Effort & Inspection: normal respiratory effort and able to speak in complete sentences Auscultation: clear to auscultation bilaterally, no crackles, no rales, no rhonchi and wheezes Cardio Heart sounds: S1 normal heart sound present and S2 normal heart sound present Neuro General: patient oriented x3 Assessment & Plan Assessment & Plan (1) COPD with acute exacerbation: Code(s): J44.1 - Chronic obstructive pulmonary disease with (acute) exacerbation Plan: Ordered Trelegy and Prednisone for patient. Advised she follows with PCP plus Pulmonology. Smoking cessation counseling provided. Pt not willing to quit. Medications: New dxhyzlikwgl-dtiojjzqh-ajeusxls 200-62.5-25 mcg (Trelegy Ellipta) 1 ea inhalation DAILY 60 ea 0RF J44.1 - Chronic obstructive pulmonary disease with (acute) exacerbation prednisone 20 mg PO DAILY 10 tabs 0RF J44.1 - Chronic obstructive pulmonary disease with (acute) exacerbation Discontinued benzonatate Discontinued Reason: Patient Completed Course 200 mg (2 x 100 mg) PO BID 60 caps 0RF J44.1 - Chronic obstructive pulmonary disease with (acute) exacerbation, R06.2 - Wheezing Coding Level of Care Code Est Pt Level 4 (70824) Diagnoses COPD with acute exacerbation J44.1 Time Spent (min) 20
--- OUTSIDE RECORDS SUMMARY | 2024-08-17 12:15 | XMS_ITS | Clinical Summary ---
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 12/09/19 22 Active sertraline (ZOLOFT) 100 mg tabletIndications: anxiety with depression Take 2 tablets (200 mg total) by mouth 1 (one) time each day. Active colestipoL (COLESTID) 1 gram tablet TAKE 1 TABLET BY MOUTH 3 TIMES DAILY (WITH MEALS) 270 tablet 1 03/21/19 25 Active pantoprazole (PROTONIX) 40 mg EC tablet Take 1 tablet (40 mg total) by mouth 1 (one) time each day before breakfast. Do not crush, chew, or split. 90 tablet 3 07/06/19 25 Active roflumilast (DALIRESP) 500 mcg tablet Take 1 tablet (500 mcg total) by mouth 1 (one) time each day. 30 each 07/15/19 25 Active ipratropium-albute roL (DUONEB) 0.5-2.5 mg/3 mL nebulizer solution Take 3 mL by nebulization 4 (four) times a day. 1080 mL 07/18/19 25 025 Active sucralfate (CARAFATE) 1 gram tablet Take 1 tablet (1 g total) by mouth 3 (three) times a day before meals. Take 1 hour before meals and at bedtime 90 each 3 07/25/19 25 026 Active ondansetron ODT (ZOFRAN-ODT) 4 mg disintegrating tablet Take 1 tablet (4 mg total) by mouth every 8 (eight) hours if needed for nausea. 30 tablet 3 07/25/19 25 Active benzonatate (TESSALON) 200 mg capsule Take 1 capsule (200 mg total) by mouth 3 (three) times a day if needed. 02/15/19 25 Active cefpodoxime (VANTIN) 100 mg tablet Take 1 tablet (100 mg total) by mouth every 12 (twelve) hours. with food 12/22/19 24 Active Ohtuvayre 3 mg/2.5 mL suspension for nebulization 07/14/19 25 Active EPINEPHrine (EPIPEN) 0.3 mg/0.3 mL injection Inject 0.3 mL (0.3 mg total) under the skin if needed. Active Trelegy Ellipta 200-62.5-25 mcg inhaler Inhale 1 puff (200 mcg total) by mouth 1 (one) time each day. 07/10/19 25 Active ondansetron (ZOFRAN) 4 mg tablet Take 1 tablet (4 mg total) by mouth every 8 (eight) hours if needed. 07/04/19 24 Active predniSONE (DELTASONE) 10 mg tablet Take 1 tablet (10 mg total) by mouth 1 (one) time each day. 06/04/19 25 Active ondansetron ODT (ZOFRAN-ODT) 4 mg disintegrating tablet Take 1 tablet (4 mg total) by mouth every 8 (eight) hours if needed for nausea. 30 tablet 3 01/12/20 24 025 Discontin ued(Reord er) sucralfate (CARAFATE) 1 gram tablet Take 1 tablet (1 g total) by mouth 3 (three) times a day before meals. Take 1 hour before meals and at bedtime 90 each 3 05/30/19 25 025 Discontin u([facility]) [facility], or Other Facility Administered Medication Ordered Dose Route Frequency Start Date End Date Status albuterol 2.5 mg /3 mL (0.083 %) nebulizer solution 2.5 mgIndications:COPD exacerbation ([facility] V24, [facility] V28) 2.5 mg nebu Every 6 hours PRN 07/20/2024 Active Active Problems Problem Noted Date Diagnosed Date Abdominal pain 07/28/2024 History of substance abuse ([facility] V24, [facility] V28) 07/28/2024 Tobacco dependence syndrome 07/28/2024 COPD exacerbation ([facility] V24, [facility] V28) 01/2025 Medial epicondylitis of elbow, right 01/25/2023 Calcification of left hand joint 10/07/2022 Left carpal tunnel syndrome 10/07/2022 Medial epicondylitis of elbow, left 10/07/2022 Stage 2 moderate COPD by GOL D classification ([facility] V24, [facility] V28) 12/17/2021 Overview (11/26/2023): Last Assessment & [...] Gastroesophageal reflux disease without esophagi tis 11/23/2018 History of cholecystectomy 10/22/2016 Opiate dependence ([facility] V24, [facility] V28) Anxiety 03/29/2015 Asthma 03/29/2015 Eczema 06/02/2011 Encounters Date Type Department Care Team Description 08/02/2024 Telephone Pulmonolgy - [address] [place] [address] Ashley Orozco MA DME 07/31/2024 10:00 AM EDT Office Visit Pulmonolgy [address] [phone] Luciana Ivey MD Pulmonary emphysema, unspecified emphysema type (CMS/HCC V24, CMS/HCC V28) (Primary Dx); Cigarette nicotine dependence with other nicotine-induced disorder; Pulmonary nodule 07/24/2024 Telephone Gastroenterology [facility] [address] [phone] Wes Romo MD special procedure 07/12/2024 Telephone Pulmonolgy [address] [phone] Luciana Ivey MD 07/05/2024 1:40 PM EDT Office Visit Gastroenterology [facility] [address] [phone] Kacey Christianson PA Gastroesophageal reflux disease with esophagitis without hemorrhage (Primary Dx); Esophageal stenosis; Tubular adenoma of colon 07/05/2024 Telephone Gastroenterology [facility] [address] [phone] Kacey Christianson PA 05/30/2024 Telephone Internal Medicine - [facility] [address] [place] [phone] Eric Sawyer MD Fall from Last 3 Months Immunizations Name Administration [...] Used Date Smoking Tobacco: Every Day Cigarettes Passive Smoke Exposure: Past Smokeless Tobacco: Current Alcohol Use Standard Drinks/Week [...] Sign Reading Time Taken Comments Blood Pressure 137/70 07/31/2024 9:50 AM EDT Pulse 76 07/31/2024 9:50 AM EDT Temperature 36.1 C (97 F) 07/31/2024 9:50 AM EDT Respiratory Rate 17 07/31/2024 9:50 AM EDT Oxygen Saturation 98% 07/31/2024 9:50 AM EDT Inhaled Oxygen Concentration - - Weight 52.3 kg (115 lb 3.2 oz) 07/31/2024 9:50 A M EDT Height 162.6 cm (5' 4 ) 07/31/2024 9:50 AM EDT Body Mass Index 19.77 07/31/2024 9:50 AM EDT Plan of Treatment Upcoming Encounters Date Type Department Care Team (Late st Contact Info) Description 08/24/2024 9:30 AM EDT Office Visit Internal Medicine - [address] [phone] Eric Sawyer MD [address] [place] [address] 09/20/2024 7:45 AM EDT Appointment [facility] Endoscopy [address] [place] [phone] Wes Romo MD [address] [place] [address] 10/31/2024 9:30 AM EDT Office Visit Pulmonolgy [facility] [address] [phone] Luciana Ivey MD [address] [address] Health Maintenance Due Date Last Done Comments [...] 05/09/2023 05/09/19, 01/16/2020, 07/23/2017 COVID-19 Vaccine ( - season) 2023 03/01/2021, 05/29/2020, 05/06/2020 DTaP,Tdap,and Td Vaccines (2 - Td or Tdap) 01/14/2024 01/13/2014 Pneumococcal Vaccine: 50+ Years (3 of 3 - PCV20 or PCV21) 02/11/2024 02/10/2019, 11/11/2015, 06/02/2011 Influenza Vaccine (#1) 2024 , 10/31/2020, 11/03/2016, Additional history exists Colorectal Cancer [...] Procedure Name Priority Date/Time Associated Diagnosis Comments HM COLONOSCOPY Routine 11/08/2023 SCREENING MAMMOGRAPHY BI 2-VIEW BREAST INC CAD Routine 05/08/2021 1:42 PM EDT Encounter for screening mammogram for malignant neoplasm of breast LIPID PANEL Routine 12/02/2020 from Last 3 Months or Most Recently Relevant to Health Maintenance Results * Colonoscopy (11/08/2023) Colonoscopy No Interpretation , Abstracted Anatomical Region Laterality Modality Other [facility] Provider HEALTH MAINTENANCE Final Result * SCREENING [...] mg/dL Blood Venous blood specimen / Unknown us Historical Provider LAB BLOOD ORDERABLES Roslyn l Result from Last 3 Months or Most Recently Relevant to Health Maintenance Insurance [address] [place] [address] [facility] MEDICARE Member Subscriber Plan / Payer (Ef fective 2019-Present) Name:MARIN GONZALEZ Relation to Subscriber:Self Name:Marin Gonzalez Payer ID:[id number] Group ID:[id number] Type:Not on file Address: [address] [place] [address] Advance Directives Documents on File Type Date Recorded 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 Care Teams Cook Fish Eggs Relationship Specialty Start Date End Date Eric Sawyer MD [address] [place] [address] PCP - General Internal Medicine 03/29/15
== END 2024-08-17 13:30 | disposition home or self-care (01) ==
PROVIDERS: PCP Internal Medicine; Visit Provider Nurse Practitioner Family
DX: J44.1 Chronic obstructive pulmonary disease with (acute) exacerbation (principal)

== ENCOUNTER → 2024-08-17 11:38 | Outpatient (BNVA) | payer OTHER, SELFPAY | PROVIDERS: PCP Internal Medicine; Visit Provider Nurse Practitioner Family | DX: J44.1 Chronic obstructive pulmonary disease with (acute) exacerbation (principal) | CPT/HCPCS: 99212 ==

== ENCOUNTER 2024-11-03 10:43 | Outpatient (AMB) | payer OTHER, SELFPAY ==
--- NOTE | 2024-11-03 10:47 | MHC.OFFWIV ---
Intake Vital Signs 11/03/24 10:48 Height 5 ft 3.5 in BP 162/90 H Blood Pressure Location Lt brachial Position Sitting Pulse 96 Pulse Source Pulse Oximeter Temp 98.4 F Temp Source Oral Pulse Oximetry (%) 95 Oxygen Delivery Method Room Air Intake Visit Reasons: EP-sob, wheezing Intake Note: pt presents with SOB, wheezing, coughing for two days. nebulizer tx at home w/o efficacy, albuterol inhaler used about an hr ago. pt reports h/o COPD Patient Tobacco Use Status: Current everyday Tobacco user Allergies buprenorphine (From SU[facility]) Allergy (Severe, Verified 08/17/24 11:44) ANAPHYLAXIS naloxone (From SUBOX[facility]) Allergy (Severe, Verified 08/17/24 11:44) ANAPHYLAXIS NSAIDS (Non-Steroidal Anti-Inflamma (Nsaids) Allergy (Unknown, Verified 08/17/24 11:44) RASH, ITCHING Do you need a note to return to daycare/school/sports/work: No HPI HPI Comments History of Present Illness Details History - The patient is a 59-year-old female with past med hx of COPD and current smoker presenting with respiratory symptoms including wheezing, shortness of breath, and productive cough for 2 days. - Current symptoms include wheezing, shortness of breath, and productive cough, with the use of a rescue inhaler and nebulizer three times a day. - The patient has previously required prednisone for exacerbations and is managed by a armature straightener, Dr. Panda Smart. - Additional symptoms include headaches and sinus congestion - denies fevers or chills Physical Exam General: Cooperative, healthy appearing, comfortable and no acute distress Orientation/consciousness: Patient oriented x3 Limitations: No limitations Head: Normal to inspection Ears: Hearing grossly normal bilaterally, external ears normal and TM's normal bilaterally Nose: Normal external nose present, Normal nares present and No nasal discharge present Face and sinus: Normal facial exam and Sinuses tender in the maxillary region Mouth: Normal oral and palatal mucosa present and moist mucous membranes Throat: Yes tonsils normal, Yes uvula midline. Posterior oropharynx erythema, no exudates Eyes: Appearance normal, both eyes and all related structures Neck: Normal visual inspection, full ROM Respiratory: exp wheezes throughout. Normal respiratory effort, able to speak in complete sentences, Actively coughing, wheezing, shortness of breath, no respiratory distress, not tachypneic, no tripod positioning and no use of accessory muscles Cardiovascular: Regular rate and rhythm. Normal S1 and S2 Skin: No rashes or lesions noted Neuro: Patient oriented x3 Extremities: Normal to inspection and Yes no clubbing, cyanosis or edema Review of Systems - Respiratory: Reports wheezing, dyspnea, and productive cough. - Neurological: Reports headaches. - ENT: Reports sinus congestion. All systems reviewed and are unremarkable except as noted in HPI [facility] Medical History (Updated 11/03/24 @ 11:10 by Olamide Stewart PA-C) COPD with acute exacerbation Cough Wheezing on auscultation Social History Patient Tobacco Use Status: Current everyday Tobacco user Physical Exam Vital Signs: Last Vital Signs Temp 98.4 F 11/03/24 10:48 Pulse 96 11/03/24 10:48 BP 162/90 H 11/03/24 10:48 Pulse Ox 84 L 11/03/24 10:48 Oxygen Delivery Method Room Air 11/03/24 10:48 Assessment & Plan Assessment & Plan (1) COPD exacerbation: Comment: Patient's oxygenation is 95% on examination without tachypnea however patient is wheezing despite use of albuterol. Code(s): J44.1 - Chronic obstructive pulmonary disease with (acute) exacerbation Plan: Plan Patient was informed and verbally consented to the use of an ambient scribe for clinic note documentation during this visit. Chronic Obstructive Pulmonary Disease (Copd) exacerbation 2/2 lower respiratory infection - VSS, pt well appearing and PE remarkable for exp wheezes throughout. - Sent viral panel - Initiate a five-day course of prednisone 50 mg daily to manage the exacerbation. - Continue use of rescue inhaler and nebulizer as needed. - Follow-up with armature straightener Dr. Panda Smart for ongoing management. (2) Lower respiratory infection (e.g., bronchitis, pneumonia, pneumonitis, pulmonitis): Code(s): J22 - Unspecified acute lower respiratory infection Plan: as above Orders: Orders Resp Pathogen Panel - [facility] [place] Today J06.9 - Acute upper respiratory infection, unspecified Medications: New prednisone 50 mg PO QAM 5 tabs 0RF Coding Level of Care Code New Pt Level 4 (23826) Diagnoses COPD exacerbation J44.1 Lower respiratory infection (e.g., bronchitis, pneumonia, pneumonitis, pulmonitis) J22
[2024-11-03 10:48] VITALS: BP 162/90; PULSE 96; TEMP 36.9; O2SAT 95
--- OUTSIDE RECORDS SUMMARY | 2024-11-03 12:17 | XMS_ITS | Clinical Summary ---
Author Organization 175 [facility] Address [address] [place] [address] Phone Care Team Providers Care Machine Taper Name Role Phone Eric Sawyer MD Primary Care Provider [phone] Allergies Active Allergy Reactions Criticality Noted Date [...] 12/09/19 22 Active sertraline (ZOLOFT) 100 mg tabletIndications :anxiety with depression Take 2 tablets (200 mg [...] split. 90 tablet 3 07/06/19 25 Active ipratropium-albut Qi (DUONEB) 0.5-2.5 mg/3 mL nebulizer solution Take 3 mL by nebulization 4 (four) times a day. 1080 mL 07/18/19 25 Active sucralfate (CARAFATE) 1 gram tablet [...] nausea. 30 tablet 3 07/25/19 25 Active Ohtuvayre 3 mg/2.5 mL suspension for nebulization 07/14/19 25 Active EPINEPHrine (EPIPEN) 0.3 mg/0.3 mL injection Inject 0.3 mL (0.3 mg total) under the skin if needed. Active Trelegy Ellipta 200-62.5-25 mcg inhaler Inhale 1 puff (200 mcg total) by mouth 1 (one) time each day. 1 each 10/19/19 25 Active albuterol HFA (PROAIR HFA ; PROVENTIL HFA ; VENTOLIN HFA) 90 mcg/actuation inhalerIndication s:COPD exacerbation (CMS/HCC V24, CMS/HCC V28) Inhale 2 puffs by mouth every 4 (four) hours if needed for wheezing or shortness of breath. 8.5 each 2 10/19/19 25 026 Active tiZANidine (ZANAFLEX) 4 mg tablet Take 1 tablet (4 mg total) by mouth 3 (three) times a day if needed for muscle spasms. 30 tablet 10/19/19 25 Active gabapentin (NEURONTIN) 300 mg capsule Take 1 capsule (300 mg total) by mouth 3 (three) times a day. Start with 1 tablet once a day x 3 days, then increase to 1 tablet twice a day x 3 days then increase to 1 tablet 3 times a day 90 capsule 1 10/20/19 25 025 Active roflumilast (DALIRESP) 500 mcg tablet Take 1 tablet (500 mcg total) by mouth 1 (one) time each day. 90 each 10/20/19 25 026 Active roflumilast (DALIRESP) 500 mcg tablet Take 1 tablet (500 mcg total) by mouth 1 (one) time each day. 30 each 07/15/19 25 025 Discontinu ed(Reorder ) benzonatate (TESSALON) 200 mg capsule Take 1 capsule (200 mg total) by mouth 3 (three) times a day if needed. 02/15/19 25 025 Discontinu ed(Therapy completed) Trelegy Ellipta 200-62.5-25 mcg inhaler Inhale 1 puff (200 mcg total) by mouth 1 (one) time each day. 07/10/19 025 Discontinu ed(Reorder ) ondansetron (ZOFRAN) 4 mg tablet Take 1 tablet (4 mg total) by mouth every 8 (eight) hours if needed. 07/04/19 24 025 Discontinu ed(Duplica te order) predniSONE (DELTASONE) 10 mg tabletIndications :Lumbar radicular pain,Bilateral hip pain Take 4 tablets daily for 3 days than 3 tablets daily for 3 days than 2 tablets for 3 days than 1 tablet daily for 3 days 30 tablet 09/20/19 25 025 Discontinu ed(Therapy completed) azithromycin (ZITHROMAX) 500 mg tablet 09/19/19 25 025 Discontinu ed(Reorder ) prednisoLONE acetate (PRED FORTE) 1 % ophthalmic suspension 08/26/19 25 025 Discontinu ed(Therapy completed) predniSONE (DELTASONE) 10 mg tablet Take 4 tablets daily for 3 days than 3 tablets daily for 3 days than 2 tablets for 3 days than 1 tablet daily for 3 days 30 tablet 09/29/19 25 025 Discontinu ed(Therapy completed) albuterol HFA (PROAIR HFA ; PROVENTIL HFA ; VENTOLIN HFA) 90 mcg/actuation inhalerIndication s:COPD exacerbation (CMS/HCC V24, CMS/HCC V28) INHALE 2 PUFFS BY MOUTH EVERY 4 (FOUR) HOURS IF NEEDED FOR WHEEZING OR SHORTNESS OF BREATH. 8.5 each 2 10/05/19 25 025 Discontinu ed(Reorder ) predniSONE (DELTASONE) 10 mg tablet Take 1 tablet (10 mg total) by mouth 1 (one) time each day for 7 days. 7 each 10/12/19 25 025 Discontinu ed(Therapy completed) methylPREDNISolon e (MEDROL DOSPAK) 4 mg tabletIndications :COPD exacerbation ([facility] V24, [facility] V28) Take as directed on package. 21 tablet 10/19/19 25 025 Hospital, Clinic, or Other Facility Administered Medication Ordered Dose Route Frequency Start Date End Date Status albuterol 2.5 mg /3 mL (0.083 %) nebulizer solution 2.5 mgIndications:COPD exacerbation ([facility] V24, [facility] V28) 2.5 mg nebu Every 6 hours PRN 07/20/2024 Active Active Problems Problem Noted Date Diagnosed Date Abdominal pain 07/28/2024 History of substance abuse ([facility] V24, [facility] V28) 07/28/2024 Tobacco dependence syndrome 07/28/2024 COPD exacerbation ([facility] V24, [facility] V28) 01/2025 Medial epicondylitis of elbow, right 01/25/2023 Calcification of left hand joint 10/07/2022 Left carpal tunnel syndrome 10/07/2022 Medial epicondylitis of elbow, left 10/07/2022 Stage 2 moderate COPD by GOL D classification ([facility] V24, [facility] V28) 12/17/2021 Overview (11/26/2023): Last Assessment & [...] 11/23/2018 History of cholecystectomy 10/22/2016 Opiate dependence ([facility] V24, [facility] V28) Anxiety 03/29/2015 Asthma 03/29/2015 Eczema 06/02/2011 Encounters Date Type Department Care Team Description 10/30/2024 Telephone Pulmonology - [facility] [address] [place] [address] Luciana Ivey MD 10/19/2024 9:30 AM EDT Consult Orthopedic Surgery - [facility] [address] [place] [phone] Rachel Garcia MD Lumbar radiculopathy (Primary Dx); Arthritis of left hip 10/18/2024 2:24 PM EDT - 10/18/2024 11:59 PM EDT [facility] Encounter [facility] [address] [facility] [place], [place] [phone] COPD exacerbation ([facility] V24, [facility] V28) Discharge Disposition: Home or Self Care 10/18/2024 2:00 PM EDT [facility] [phone] Eric Sawyer MD Adult general medical examination (Primary Dx); COPD exacerbation (CMS/[facility] V24, CMS/[facility] V28); Immunization due; Screening for deficiency anemia; Screening for hyperlipidemia; Screening for diabetes mellitus; Screening for thyroid disorder; Leg cramping 09/20/2024 8:32 AM EDT Anesthesia Event [facility] [address] [place] [phone] Randy Vela MD 09/20/2024 6:56 AM EDT - 09/20/2024 11:59 PM EDT Hospital Encounter [facility] [address] [place] [phone] Wes Romo MD Steele, Matthew G, STUDIO RECEPTIONIST Esophageal stenosis Discharge Disposition: Home or Self Care 09/18/2024 [facility] [address] [place], [place] [address], [place] [phone] Eric Sawyer MD 08/29/2024 Telephone Lung Screening Program - [facility] [address] [place] [phone] Shanice Mak MA 08/24/2024 9:30 AM EDT [facility] [address] [place], [place] [address]ery [place] [phone] Eric Sawyer MD COPD exacerbation ([facility] V24, [facility] V28) (Primary Dx); Lumbar radicular pain; Bilateral hip pain 08/24/2024 9:29 AM EDT - 08/24/2024 11:59 PM EDT [facility] [address] [place], [place] [address] [phone] Lumbar radicular pain; Bilateral hip pain Discharge Disposition: Home or Self Care 08/24/2024 9:29 AM EDT - 08/24/2024 11:59 PM EDT [facility] [address] [place], [place] [address] [address] Lumbar radicular pain; Bilateral hip pain Discharge Disposition: Home or Self Care from Last 3 Months Immunizations Name Administration [...] valent (Pneumovax 23) 2yo and older 02/10/2019 Tdap Tetanus diptheria acell ular pertussis (Boostrix; Adacel) 7yo and older 10/18/2024 Surgical History Surgery Date Site/Laterality Comments OTHER SURGICAL HISTORY PROCEDURE: HYSTEROSCOPY, DIAGNOSTIC CHOLECYSTECTOMY 08/31/2016 PROCEDURE: HISTORICAL CHOLECYSTECTOMY; COMMENT: [facility] LIP[facility] RESECTION 04/11/2020 Right PROCEDURE: SKIN TISSUE EXCISION(LIPOMA); COMMENT: excision of an 8cm x 7cm x 3cm subcutaneous lipoma on the right upper back - by Dr. Simon Meza CARPAL TUNNEL RELEASE 02/11/2023 Left COLONOSCOPY ESOPHAGOGASTRODUODENOSCOPY HYSTERECTOMY Medical History Medical History Date Comments Pancreatitis [...] drink = 0.6 oz pur e alcohol) Housing Instability Answer Date Recorde d Are you worried that in the next 2 months you may not have stable housing? No 08/23/2024 Food Access & Nutrition Answer Date Rec orded Do you have access to a vari ety of food including fruits and vegetables? Yes 08/23/2024 Health Literacy Answer Date Recorded How often do you need to hav e someone help you when you read instructions, pamphlets, or other written material from your doctor or pharmacy? Patient declined 08/23/2024 Caregiver: How often do you need to have someone help you when you read instructions, pamphlets, or other written material from your doctor or pharmacy? Not on file 025 Financial Risk Answer Date Recorded How hard is it for you to pa y for the very basics like food, housing, medical care, and air conditioning / heating? Not asked 08/23/2024 Transportation Answer Date Recorded Has the lack of transportati on kept you from meetings, work, or from getting things needed for daily living? Not asked 2024 Has the lack of transportati on kept you from medical appointments or from getting medications? Not asked 08/23/2024 Social Isolation Answer Date Recorded How often do you feel lonely or isolated from those around you? Not asked 08/23/2024 Food Risk Answer Date Recorded Within the past 12 months we worried whether our food would run out before we got money to buy more. Sometimes true 025 Within the past 12 months th e food we bought just didn't last and we didn't have money to get more. Never true 08/23/2024 Dependent Care Answer Date Recorded Do you need help finding or paying for care for your loved ones. For example, summer child caregiver or elderly care for an older adult? No 08/23/2024 Education Answer Date Recorded Do you think completing more education or training, like finishing a GED, going to college, or learning a trade, would be helpful for you? N/A 08/23/2024 Employment and Income Answer Date Recor ded During the last four weeks, have you been actively looking for work? No 08/23/2024 Living Situation Answer Date Recorded What is your living situation? 0 08/23/2024 Interpersonal Safety Answer Date Record ed Physical Abuse 09/20/2024 Verbal Abuse 09/20/2024 Comments No Sex and Gender Information Value Date Recorded Sex Assigned at Female 05/29/2024 5:15 PM EDT Legal Sex Female 2:37 AM EST Gender Identity Female 05/29/2024 5:15 PM EDT Sexual Orientation Choose not to disclose 2024 5:15 PM EDT Obstetrics History Last Filed Vital Signs Vital Sign Reading Time Taken Comments Blood Pressure 144/76 10/18/2024 1:54 PM EDT Pulse 78 10/18/2024 1:54 PM EDT Temperature 36.7 C (98 F) 09/20/2024 8:46 AM EDT Respiratory Rate 18 09/20/2024 9:06 AM EDT Oxygen Saturation 98% 09/20/2024 9:06 AM EDT Inhaled Oxygen Concentration - - Weight 55.8 kg (123 lb) 10/19/2024 9:22 AM EDT Height 162.6 cm (5' 4.02 ) 10/19/2024 9:22 AM ED T Body Mass Index 21.1 10/19/2024 9:22 AM EDT Plan of Treatment Upcoming Encounters Date Type Department Care Team (Late st Contact Info) Description 11/17/2024 10:00 AM EDT Procedure visit Orthopedic Surgery - [facility] [address] [place] [phone] Rachel Garcia MD [facility] [address] [place] [address] 11/20/2024 11:00 AM EDT Evaluation [facility] [address] [place] [phone] Bhavani Everett, PT Health Maintenance Due Date Last Done Comments Hepatitis A Vaccines (1 of 2 - Risk 2-dose series) 1985 Hepatitis B Vaccines (1 of 3 - 19+ 3-dose series) 1985 Cervical Cancer Screening: Pap Smear 08/14/1987 Zoster Vaccines (1 of 2) 2016 HIV Screening 01/17/2022 Hepatitis C Screening 01/17/2022 Medicare Annual Wellness Visit 01/17/2022 Breast Cancer Screening 05/09/2023 05/09/19, 01/16/2020, 07/23/2017 Pneumococcal Vaccine: 50+ Years (3 of 3 - PCV20 or PCV21) 02/11/2024 02/10/2019, 11/11/2015, 06/02/2011 COVID-19 Vaccine (4 - season) 2024 03/01/2021, 05/29/2020, 05/06/2020 Influenza Vaccine (#1) 2024 , 10/31/2020, 11/03/2016, Additional history exists Social Influencers of Health Screening 08/23/2025 08/23/2024 Colorectal Cancer Screening: Colonoscopy 11/07/2025 11/08/2023 Cholesterol Screening (Lipid Panel) 10/18/2029 10/18/2024, 12/02/2020 DTaP,Tdap,and Td Vaccines (3 - Td or Tdap) 10/18/2034 10/18/2024, 01/13/2014 RSV Immunization Adult Patients (1 - 1-dose 75+ series) 2041 Depression Screening Completed 08/23/2024 HIB Vaccines Aged Out No longer eligi [...] Procedure Name Priority Date/Time Associated Diagnosis Comments LIPID PANEL WITH REFLEX TO DIRECT LDL Routine 10/18/2024 2:41 PM EDT Screening for hyperlipidemia COMPREHENSIVE METABOLIC PANEL Routine 10/18/2024 2:41 PM EDT Screening for diabetes mellitus COMPLETE BLOOD COUNT Routine 10/18/2024 2:41 PM EDT Screening for deficiency anemia THYROID STIMULATING HORMONE WITH REFLEX TO FREE T4 AND FREE T3 Routine 10/18/2024 2:41 PM EDT Screening for thyroid disorder XR CHEST 2 VIEWS Routine 10/18/2024 2:29 PM EDT COPD exacerbation (CMS/HCC V24, CMS/HCC V28) EGD Routine 09/20/2024 8:45 AM EDT Esophageal stenosis XR HIPS 3-4 VIEWS WO OR W PELVIS BILAT Routine 08/24/2024 9:57 AM EDT Lumbar radicular pain Bilateral hip pain XR LUMBAR SPINE 4+ VIEWS Routine 08/24/2024 9:52 AM EDT Lumbar radicular pain Bilateral hip pain HM COLONOSCOPY Routine 11/08/2023 SCREENING MAMMOGRAPHY BI 2-VIEW BREAST INC CAD Routine 05/08/2021 1:42 PM EDT Encounter for screening mammogram for malignant neoplasm of breast from Last 3 Months or Most Recently Relevant to Health Maintenance Results * Thyroid stimulating hormone with reflex to free t4 and free t3 (10/18/2024 2:41 PM EDT) Pathologist [facility] TSH 0.77 0.40 - 4.00 mcIU/mL LAB CHEMISTRY METHOD 10/18/2024 8:38 PM EDT [facility] Blood Venous blood specimen / Unknown Venipuncture / Unknown 10/18/2024 2:41 PM EDT 10/18/2024 2:41 PM EDT us Eric Sawyer MD LAB BLOOD ORDERABLES Final Res ult [facility] [address] [place] [address], [place] [phone] * (ABNORMAL) Lipid panel with reflex to direct LDL (10/18/2024 2:41 PM EDT) Cholesterol 226(H) 0 - 200 mg/dL LAB CHEMISTRY METHOD 10/18/2024 7:57 PM EDT [facility] Triglycerides 415(H) 0 - 150 mg/dL LAB CHEMISTRY METHOD 10/18/2024 7:57 PM EDT [facility] HDL 58 >=40 mg/dL LAB CHEMISTRY METHOD 10/18/2024 7:57 PM EDT [facility] LDL Calculated 85 0 - 100 mg/dL LAB CHEMISTRY METHOD 10/18/2024 7:57 PM EDT [facility] Comment: Unable to calculate when triglycerides >400 mg/dL. Estimated LDL Calculated using equation: Total cholesterol - HDL cholesterol - (Triglycerides/5) VLDL Cholesterol Meo 83 mg/dL LAB CHEMISTRY METHOD 10/18/2024 7:57 PM EDT [facility] Comment:Unable to calculate when triglycerides >400 mg/dL. Non HDL Chol. (LDL+VLDL) 168(H) <145 mg/dL LAB CHEMISTRY METHOD 10/18/2024 7:57 PM EDT [facility] Comment:Unable to calculate when triglycerides >400 mg/dL. Chol/HDL Ratio 3.9 0.0 - 4.4 LAB CHEMISTRY METHOD 10/18/2024 7:57 PM EDT [facility] Blood Venous blood specimen / Unknown Venipuncture / Unknown 10/18/2024 2:41 PM EDT 10/18/2024 2:41 PM EDT us Eric Sawyer MD LAB BLOOD ORDERABLES Final Res ult [facility] [address] [place] [address], [place] [phone] * Complete blood count (10/18/2024 2:41 PM EDT) WBC 9.7 4.8 - 10.8 K/mcL LAB HEMETOLOGY METHOD 10/18/2024 7:07 PM EDT [facility] RBC 4.40 3.80 - 4.80 M/mcL LAB HEMETOLOGY METHOD 10/18/2024 7:07 PM EDT [facility] Hemoglobin 14.1 11.5 - 16.0 g/dL LAB HEMETOLOGY METHOD 10/18/2024 7:07 PM EDT [facility] Hematocrit 43.2 35.0 - 47.0 % LAB HEMETOLOGY METHOD 10/18/2024 7:07 PM EDT [facility] MCV 97.5 79.0 - 98.0 FL LAB HEMETOLOGY METHOD 10/18/2024 7:07 PM EDT [facility] MCH 31.8 27.0 - 32.0 pcg LAB HEMETOLOGY METHOD 10/18/2024 7:07 PM EDT [facility] MCHC 32.6 32.0 - 37.0 g/dL LAB HEMETOLOGY METHOD 10/18/2024 7:07 PM EDT [facility] RDW 13.2 11.0 - 15.0 % LAB HEMETOLOGY METHOD 10/18/2024 7:07 PM EDT [facility] Platelets 343 130 - 400 K/mcL LAB HEMETOLOGY METHOD 10/18/2024 7:07 PM EDT [facility] MPV 9.1 7.0 - 11.0 FL LAB HEMETOLOGY METHOD 10/18/2024 7:07 PM EDT [facility] NRBC 0.0 <1.0 % LAB HEMETOLOGY METHOD 10/18/2024 7:07 PM EDT [facility] NRBC Absolute 0.00 <0.10 K/mcL LAB HEMETOLOGY METHOD 10/18/2024 7:07 PM EDT [facility] Blood Venous blood specimen / Unknown Venipuncture / Unknown 10/18/2024 2:41 PM EDT 10/18/2024 2:41 PM EDT us Eric Sawyer MD LAB BLOOD ORDERABLES Final Res ult [facility] [address] [place] [address], * (ABNORMAL) Comprehensive metabolic panel (10/18/2024 2:41 PM EDT) Sodium 138 133 - 145 mmol/L LAB CHEMISTRY METHOD 10/18/2024 7:57 PM EDT [facility] Potassium 4.3 3.5 - 5.5 mmol/L LAB CHEMISTRY METHOD 10/18/2024 7:57 PM [facility] Chloride 104 96 - 110 mmol/L LAB CHEMISTRY METHOD 10/18/2024 7:57 PM [facility] CO2 30 21 - 32 mmol/L LAB CHEMISTRY METHOD 10/18/2024 7:57 PM [facility] Anion Gap 4 3 - 11 LAB CHEMISTRY METHOD 10/18/2024 7:57 PM [facility] Glucose 105(H) 70 - 100 mg/dL LAB CHEMISTRY METHOD 10/18/2024 7:57 PM [facility] BUN 14 5 - 25 mg/dL LAB CHEMISTRY METHOD 10/18/2024 7:57 PM [facility] Creatinine 1.00 0.50 - 1.10 mg/dL LAB CHEMISTRY METHOD 10/18/2024 7:57 PM [facility] eGFR 65 >=60 mL/min/1. 73m2 LAB CHEMISTRY METHOD 10/18/2024 7:57 PM [facility] Comment:Calculation based on the Chronic Kidney Disease Epidemiology Collaboration (CKD-EPI) equation refit without adjustment for race. BUN/Creatinine Ratio 14.0 LAB CHEMISTRY METHOD 10/18/2024 7:57 PM [facility] Calcium 9.3 8.5 - 10.5 mg/dL LAB CHEMISTRY METHOD 10/18/2024 7:57 PM [facility] AST (SGOT) 19 10 - 42 unit/L LAB CHEMISTRY METHOD 10/18/2024 7:57 PM [facility] ALT (SGPT) 32 10 - 60 unit/L LAB CHEMISTRY METHOD 10/18/2024 7:57 PM [facility] Alkaline Phosphatase 61 42 - 121 unit/L LAB CHEMISTRY METHOD 10/18/2024 7:57 PM [facility] Total Protein 6.1 6.0 - 8.0 g/dL LAB CHEMISTRY METHOD 10/18/2024 7:57 PM EDT [facility] Albumin 3.8 3.2 - 5.0 g/dL LAB CHEMISTRY METHOD 10/18/2024 7:57 PM EDT [facility] Total Bilirubin 0.3 0.0 - 1.4 mg/dL LAB CHEMISTRY METHOD 10/18/2024 7:57 PM EDT [facility] Blood Venous blood specimen / Unknown Venipuncture / Unknown 10/18/2024 2:41 PM EDT 10/18/2024 2:41 PM EDT us Eric Sawyer MD LAB BLOOD ORDERABLES Final Res ult [facility] [address] [place] [address], [place] [phone] * XR Chest 2 Views (10/18/2024 2:29 PM EDT) Anatomical Region Laterality Modality Body Radiographic Tracy ging 10/18/2024 5:53 PM EDT Impressions 10/18/2024 5:54 PM EDT No acute pulmonary pathology. -------- FINAL REPORT -------- Dictated By: Angelique Vila Dictated Date: 10/18/2024 17:53 ET Assigned Physician: Angelique Vila Reviewed and Electronically Signed By: Angelique Vila Signed Date: 10/18/2024 17:54 ET Workstation ID: [id number] Transcribed By: Self Edit Transcribed Date: 10/18/2024 17:53 ET Narrative 10/18/2024 5:54 PM EDT CHEST, TWO VIEWS HISTORY: Wheezing. TECHNIQUE: Frontal and lateral views of the chest. PRIOR: Chest x-ray 12/02/2020. FINDINGS: The lungs are clear. No pleural effusion is seen. No pneumothorax is seen. The cardiac diameter is within normal limits. No acute or aggressive appearing bony abnormalities are seen. There is calcific tendinitis/bursitis of the right shoulder. There is atherosclerosis. There are surgical clips in the right upper quadrant. Procedure Note Angelique Vila MD - 10/18/2024 CHEST, TWO VIEWS HISTORY: Wheezing. TECHNIQUE: Frontal and lateral views of the chest. PRIOR: Chest x-ray 12/02/2020. FINDINGS: The lungs are clear. No pleural effusion is seen. No pneumothorax is seen. The cardiac diameter is within normal limits. No acute or aggressive appearing bony abnormalities are seen. There iscalcific tendinitis/bursitis of the right shoulder. There is atherosclerosis. There are surgical clips in the right upper quadrant. IMPRESSION: No acute pulmonary pathology. -------- FINAL REPORT -------- Dictated By: Angelique Vila Dictated Date: 10/18/2024 17:53 ET Assigned Physician: Angelique Vila Reviewed and Electronically Signed By: Angelique Vila Signed Date: 10/18/2024 17:54 ET Workstation ID: [id number] Transcribed By: Self Edit Transcribed Date: 10/18/2024 17:53 ET Eric Sawyer MD IMG XR PROCEDURES Final Result * EGD Anesthesia - MAC; [facility] ENDOSCOPY (09/20/2024 8:45 AM EDT) Anatomical Region Laterality Modality Endoscopy 09/20/2024 8:33 AM EDT Impressions 09/20/2024 8:47 AM EDT - Normal examined duodenum. - Normal stomach. - No specimens collected. Recommendation: - Discharge patient to home. - Repeat upper endoscopy PRN for retreatment. Narrative 09/20/2024 8:47 AM EDT [facility] GI Patient Name: Constantine Gonzalez Procedure Date: 09/20/2024 8:33 AM Date of : 1965 Age: 59 Gender: Female Note Status: Finalized Attending MD: Wes Romo MD, Procedure Date No Time: 09/20/2024 Procedure: Upper GI endoscopy Indications: Dysphagia Providers: Wes Romo MD Referring MD: Wes Romo MD Medicines: Monitored Anesthesia Care Complications: No immediate complications. Estimated blood loss: Minimal. Estimated Blood Loss: Estimated blood loss: none. Procedure: Pre-Anesthesia Assessment: - Prior to the procedure, a History and Physical was performed, and patient medications and allergies were reviewed. The patient is competent. The risks and benefits of the procedure and the sedation options and risks were discussed with the patient. All questions were answered and informed consent was obtained. Patient identification and proposed procedure were verified by the physician, the nurse, the nurse monitoring and the irrigation technician in the pre-procedure area in the endoscopy suite. Mental Status Examination: alert and oriented. Airway Examination: normal oropharyngeal airway and neck mobility. Respiratory Examination: clear to auscultation. CV Examination: normal. Prophylactic Antibiotics: The patient does not require prophylactic antibiotics. Prior Anticoagulants: The patient has taken no anticoagulant or antiplatelet agents. ASA Grade Assessment: II - A patient with mild systemic disease. After reviewing the risks and benefits, the patient was deemed in satisfactory condition to undergo the procedure. The anesthesia plan was to use monitored anesthesia care (MAC). Immediately prior to administration of medications, the patient was re-assessed for adequacy to receive sedatives. The heart rate, respiratory rate, oxygen saturations, blood pressure, adequacy of pulmonary ventilation, and response to care were monitored throughout the procedure. The physical status of the patient was re-assessed after the procedure. After obtaining informed consent, the endoscope was passed under direct vision. Throughout the procedure, the patient's blood pressure, pulse, and oxygen saturations were monitored continuously. The Endoscope was introduced through the mouth, and advanced to the second part of duodenum. The upper GI endoscopy was accomplished without difficulty. The patient tolerated the procedure well. Findings: The examined duodenum was normal. The stomach was normal. There is no endoscopic evidence of Daniels's esophagus, esophagitis, salmon-colored mucosa, stenosis or stricture in the entire esophagus. A guidewire was placed and the scope was withdrawn. Dilation was performed with a Savary dilator with mild resistance at 60 Fr. Procedure Code(s): --- Professional --- 65332, Esophagogastroduodenoscopy, flexible, transoral; with insertion of guide wire followed by passage of dilator(s) through esophagus over guide wire Diagnosis Code(s): --- Professional --- R13.10, Dysphagia, unspecified CPT copyright 2020 [employer]. All rights reserved. The codes documented in this report are preliminary and upon residential specialist review may be revised to meet current compliance requirements. Wes Romo MD 09/20/2024 8:47:52 AM This report has been signed electronically.Wes Romo MD Number of Addenda: 0 Note Initiated On: 09/20/2024 8:33 AM Scope In: Scope Out: Endoscopy Department at [facility] - [address] [place] [id number] Procedure Note Wes Romo MD - 09/20/2024 [facility] GI Patient Name: Constantine Gonzalez Procedure Date: 09/20/2024 8:33 AM Date of : 1965 Age: 59 Gender: Female Note Status: Finalized Attending MD: Wes Romo MD, Procedure Date No Time: 09/20/2024 Procedure: Upper GI endoscopy Indications: Dysphagia Providers: Wes Romo MD Referring MD: Wes Romo MD Medicines: Monitored Anesthesia Care Complications: No immediate complications. Estimated blood loss: Minimal. Estimated Blood Loss: Estimated blood loss: none. Procedure: Pre-Anesthesia Assessment: - Prior to the procedure, a History and Physicalwas performed, and patient medications and allergieswere reviewed. The patient is competent. The risks and benefits of the procedure and the sedation optionsand risks were discussed with the patient. Allquestions were answered and informed consent was obtained. Patient identification and proposed procedure were verified by the physician, the nurse, theanesthetist and the irrigation technician in the pre-procedure area in the endoscopy suite. Mental Status Examination: alertand oriented. Airway Examination: normal oropharyngeal airway and neck mobility. Respiratory Examination: clear to auscultation. CV Examination: normal. Prophylactic Antibiotics: The patient does notrequire prophylactic antibiotics. Prior Anticoagulants: The patient has taken no anticoagulant or antiplatelet agents. ASA Grade Assessment: II - A patient withmild systemic disease. After reviewing the risks and benefits, the patient was deemed in satisfactory condition to undergo the procedure. The anesthesia plan was to use monitored anesthesia care (MAC). Immediately prior to administration of medications, the patient was re-assessed for adequacy to receive sedatives. The heart rate, respiratory rate, oxygen saturations, blood pressure, adequacy of pulmonary ventilation, and response to care were monitored throughout the procedure. The physical status ofthe patient was re-assessed after the procedure. After obtaining informed consent, the endoscope was passed under direct vision. Throughout theprocedure, the patient's blood pressure, pulse, and oxygen saturations were monitored continuously. TheEndoscope was introduced through the mouth, and advanced tothe second part of duodenum. The upper GI endoscopy was accomplished without difficulty. The patienttolerated the procedure well. Findings: The examined duodenum was normal. The stomach was normal. There is no endoscopic evidence of Daniels's esophagus, esophagitis, salmon-colored mucosa, stenosis or stricture in the entire esophagus. A guidewire was placed and the scope was withdrawn. Dilation was performed with a Savary dilator withmild resistance at 60 Fr. Procedure Code(s): --- Professional --- 58592, Esophagogastroduodenoscopy, flexible, transoral; with insertion of guide wire followed by passage of dilator(s) through esophagus over guidewire Diagnosis Code(s): --- Professional --- R13.10, Dysphagia, unspecified CPT copyright 2020 [employer]. All rights reserved. The codes documented in this report are preliminary and upon residential specialist reviewmay be revised to meet current compliance requirements. Wes Romo MD 09/20/2024 8:47:52 AM This report has been signed electronically.Wes Romo MD Number of Addenda: 0 Note Initiated On: 09/20/2024 8:33 AM Scope In: Scope Out: Endoscopy Department at [facility] - [address] [place] [phone] IMPRESSION: - Normal examined duodenum. - Normal stomach. - No specimens collected. Recommendation: - Discharge patient to home. - Repeat upper endoscopy PRN for retreatment. us Wes Romo MD GI~PROCEDURE ORDERABLES Fin al Result * XR Hips 3-4 Views wo or w Pelvis bilat (08/24/2024 9:57 AM EDT) Anatomical Region Laterality Modality Lower Extremities, Hip Bilateral Radiograp hic Imaging 08/24/2024 11:1 6 AM EDT Impressions 08/24/2024 11:29 AM EDT Calcific trochanteric bursitis of the right hip. 1.5 x 2.7 x 1.8 cm coarse soft tissue calcification adjacent to the left femoral neck. This could be sequela from remote injury, such as calcified hematoma, or other benign etiology. Mild osteoarthritis of the left hip. Lumbar spondylosis. -------- FINAL REPORT -------- Dictated By: Angelique Vila Dictated Date: 08/24/2024 11:16 ET Assigned Physician: Angelique Vila Reviewed and Electronically Signed By: Angelique Vila Signed Date: 08/24/2024 11:29 ET Workstation ID: [id number] Transcribed By: Self Edit Transcribed Date: 08/24/2024 11:17 ET Narrative 08/24/2024 11:29 AM EDT PELVIS, FRONTAL VIEW BILATERAL HIPS, 2 VIEWS EACH HISTORY: Increased pain. PRIOR: None. FINDINGS: No acute fracture or malalignment is seen. Soft tissues are normal. There is a coarse soft tissue calcific calcification lateral to the right greater tuberosity. There is a 1.5 x 2.7 x 1.8 cm coarse soft tissue calcification medial and posterior to the left femoral neck. There is mild spurring of the left hip. There is mild spurring of both greater tuberosities. There is degenerative change of the visualized lower lumbar spine. Procedure Note Angelique Vila MD - 08/24/2024 PELVIS, FRONTAL VIEW BILATERAL HIPS, 2 VIEWS EACH HISTORY: Increased pain. PRIOR: None. FINDINGS: No acute fracture or malalignment is seen. Soft tissues are normal. There is a coarse soft tissue calcific calcification lateral to the rightgreater tuberosity. There is a 1.5 x 2.7 x 1.8 cm coarse soft tissue calcification medial andposterior to the left femoral neck. There is mild spurring of the left hip. There is mild spurring of both greater tuberosities. There is degenerative change of the visualized lower lumbar spine. IMPRESSION: Calcific trochanteric bursitis of the right hip. 1.5 x 2.7 x 1.8 cm coarse soft tissue calcification adjacent to the leftfemoral neck. This could be sequela from remote injury, such as calcifiedhematoma, or other benign etiology. Mild osteoarthritis of the left hip. Lumbar spondylosis. -------- FINAL REPORT -------- Dictated By: Angelique Vila Dictated Date: 08/24/2024 11:16 ET Assigned Physician: Angelique Vila Reviewed and Electronically Signed By: Angelique Vila Signed Date: 08/24/2024 11:29 ET Workstation ID: [id number] Transcribed By: Self Edit Transcribed Date: 08/24/2024 11:17 ET us Eric Sawyer MD IMG XR PROCEDURES Final Result * XR Lumbar Spine 4+ Views (08/24/2024 9:52 AM EDT) Anatomical Region Laterality Modality Spine, L-spine Radiographic Tracy ging 08/24/2024 11:0 5 AM EDT Impressions 08/24/2024 11:16 AM EDT Spondylosis. -------- FINAL REPORT -------- Dictated By: Angelique Vila Dictated Date: 08/24/2024 11:05 ET Assigned Physician: Angelique Vila Reviewed and Electronically Signed By: Angelique Vila Signed Date: 08/24/2024 11:16 ET Workstation ID: [id number] Transcribed By: Self Edit Transcribed Date: 08/24/2024 11:05 ET Narrative 08/24/2024 11:16 AM EDT LUMBOSACRAL SPINE, 4 VIEWS INCLUDING OBLIQUES HISTORY: Increased pain. FINDINGS: There is straightening of the normal lordotic curve. No fractures are seen. There is disc space narrowing and endplate spurring at L2-3, L3-4, L4-5, and L5- S1. There is mild facet hypertrophy at the lower lumbar spine. There is a surgical clip in the right upper quadrant. Procedure Note Angelique Vila MD - 08/24/2024 LUMBOSACRAL SPINE, 4 VIEWS INCLUDING OBLIQUES HISTORY: Increased pain. FINDINGS: There is straightening of the normal lordotic curve. No fractures are seen. There is disc space narrowing and endplate spurring at L2-3, L3-4, L4-5,and L5- S1. There is mild facet hypertrophy at the lower lumbar spine. There is a surgical clip in the right upper quadrant. IMPRESSION: Spondylosis. -------- FINAL REPORT -------- Dictated By: Angelique Vila Dictated Date: 08/24/2024 11:05 ET Assigned Physician: Angelique Vila Reviewed and Electronically Signed By: Angelique Vila Signed Date: 08/24/2024 11:16 ET Workstation ID: [id number] Transcribed By: Self Edit Transcribed Date: 08/24/2024 11:05 ET Eric Sawyer MD IMG XR PROCEDURES Final Result * Colonoscopy (11/08/2023) Colonoscopy No Interpretation , Abstracted Anatomical Region Laterality Modality Other Historical Provider [facility] Final Result * SCREENING MAMMOGRAPHY BI 2-VIEW [...] Sawyer MD IMG XR PROCEDURES Final Result from Last 3 Months or Most Recently Relevant to Health Maintenance Insurance [employer] Member Subscriber Plan / Payer (Ef fective 2019-Present) Name:KEENAN GONZALEZW Relation to Subscriber:Self Name:Constantine Gonzalez Purvi Payer ID:[id number] Group ID:[id number] Type:Not on file Address: [address] [place] [id number] Advance Directives Documents on File Type Date Recorded 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 Care Teams Machine Taper Relationship Specialty Start Date End Date Eric Sawyer MD [address] [place] [address] PCP - General Internal Medicine 03/29/15
--- OUTSIDE RECORDS SUMMARY | 2024-11-03 12:17 | XMS_ITS | Encounter Summary ---
Author Organization [facility] Address [address] [place] [address] Care Team Providers Care Ware Dresser Name Role Phone Eric Sawyer MD Primary Care Provider [phone] Reason for Visit * Reason Onset Date Comments Med Refill 10/30/2024 Encounter Details Date Type Department Care Team ([facility] st Contact Info) Description 10/30/2024 Telephone Pulmonology - [place] [address] [place] [address] Luciana Ivey MD [address] [place] [address] Social History Tobacco Use Types Packs/Day Years [...] care for your loved ones. For example, early childhood assistant or elderly care for an older adult? [...] not to disclose 2024 5:15 PM EDT documented as of this encounter Progress Notes * Ilir Gibson - 10/30/2024 11:57 AM EDT Refill: OHTUVAYRE FLORES: 07/31/2024 documented in this encounter Plan of Treatment Upcoming Encounters Date Type Department Care Team (Late st Contact Info) Description 11/17/2024 10:00 AM EDT Procedure visit Orthopedic Surgery - [place] [address] [place] [phone] Rachel Garcia MD [address] [facility] [address] [place] [address] 11/20/2024 11:00 AM EDT Evaluation [facility] Outpatient Rehabilitation - [place] [address] [place] [phone] Bhavani Everett, PT documented as of this encounter Visit Diagnoses Not on filedocumented in this encounter Additional Health Concerns Assessment Noted Time PHQ-9 Depression Total Score: 0 08/24/19 25 11:52 PM EDT documented as of this encounter Care Teams Ware Dresser Relationship Specialty Start Date End Date Eric Sawyer MD [address] [place] [id number] PCP - General Internal Medicine 03/29/15 documented as of this encounter
== END 2024-11-03 11:26 | disposition home or self-care (01) ==
PROVIDERS: PCP Internal Medicine; Visit Provider Physician Assistant
DX: J44.1 Chronic obstructive pulmonary disease with (acute) exacerbation (principal); J22 Unspecified acute lower respiratory infection

== ENCOUNTER 2024-11-03 10:43 | Outpatient (REF) | payer OTHER, SELFPAY ==
[2024-11-03 15:07] LABS: Chlamydia pneumoniae PCR Not Detected (Not Detect.); Coronavirus 229E PCR Not Detected (Not Detect.); Coronavirus HKU1 PCR Not Detected (Not Detect.); Coronavirus NL63 PCR Not Detected (Not Detect.); Coronavirus OC43 PCR Not Detected (Not Detect.); RSV PCR Not Detected (Not Detect.); Rhino/Enterovirus PCR Not Detected (Not Detect.)
[2024-11-03 15:19] LABS: SARS-CoV-2 PCR Not Detected (Not Detect.)
[2024-11-03 15:20] LABS: Influenza A H1 PCR Not Detected (Not Detect.); Influenza A H1-2009 PCR Not Detected (Not Detect.); Influenza A H3 PCR Not Detected (Not Detect.)
== END 2024-11-03 10:44 | disposition home or self-care (01) ==
LOC: HO.LAB 10:43
PROVIDERS: Physician Assistant; PCP Internal Medicine
DX: J06.9 Acute upper respiratory infection, unspecified (principal); J44.1 Chronic obstructive pulmonary disease with (acute) exacerbation
CPT/HCPCS: 87633; 99212

== ENCOUNTER 2024-12-16 11:03 | Outpatient (AMB) | payer OTHER, SELFPAY ==
--- OUTSIDE RECORDS SUMMARY | 2024-12-16 11:06 | XMS_ITS | Clinical Summary ---
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 11/04/19 24 Active traZODone (DESYREL) 100 mg tablet Take [...] (four) times a day. 1080 mL 07/18/19 Active Ohtuvayre 3 mg/2.5 mL suspension for nebulization 07/14/19 Active EPINEPHrine (EPIPEN) 0.3 mg/0.3 mL injection Inject 0.3 mL (0.3 mg total) under the skin if needed. Active albuterol HFA (PROAIR HFA ; PROVENTIL HFA ; VENTOLIN HFA) 90 mcg/actuation inhalerIndication s:COPD exacerbation (CMS/HCC V24, CMS/HCC V28) Inhale 2 puffs by mouth every 4 (four) hours if needed for wheezing or shortness of breath. 8.5 each 2 10/19/19 25 Active tiZANidine (ZANAFLEX) 4 mg tablet Take 1 tablet (4 mg total) by mouth 3 (three) times a day if needed for muscle spasms. 30 tablet 10/19/19 Active gabapentin (NEURONTIN) 300 mg capsule Take 1 capsule (300 mg total) by mouth 3 (three) times a day. Start with 1 tablet once a day x 3 days, then increase to 1 tablet twice a day x 3 days then increase to 1 tablet 3 times a day 90 capsule 1 10/20/19 Active Additional Information Patient not taking.Reported on 12/05/2024 roflumilast (DALIRESP) 500 mcg tablet Take 1 tablet (500 mcg total) by mouth 1 (one) time each day. 90 each 10/20/19 25 Active ensifentrine 3 mg/2.5 mL suspension for nebulization Inhale 3 mg by mouth 2 (two) times a day. 150 mL 11/07/19 25 Active Trelegy Ellipta 200-62.5-25 mcg inhaler INHALE 1 PUFF (200 MCG TOTAL) BY MOUTH 1 (ONE) TIME EACH DAY. 60 each 3 11/15/19 Active sucralfate (CARAFATE) 1 gram tablet Take 1 tablet (1 g total) by mouth 3 (three) times a day before meals. Take 1 hour before meals and at bedtime 90 each 3 12/06/19 25 026 Active ondansetron ODT (ZOFRAN-ODT) 4 mg disintegrating tablet Take 1 tablet (4 mg total) by mouth every 8 (eight) hours if needed for nausea. 30 tablet 3 12/06/19 Active sucralfate (CARAFATE) 1 gram tablet Take 1 tablet (1 g total) by mouth 3 (three) times a day before meals. Take 1 hour before meals and at bedtime 90 each 3 07/25/19 25 025 Discontinu ed(Reorder ) ondansetron ODT (ZOFRAN-ODT) 4 mg disintegrating tablet Take 1 tablet (4 mg total) by mouth every 8 (eight) hours if needed for nausea. 30 tablet 3 07/25/19 25 025 Discontinu ed(Reorder ) methylPREDNISolon e (Medrol, Mitch,) 4 mg tablet Follow schedule on package instructions 21 tablet 12/06/19 25 025 azithromycin (ZITHROMAX) 250 mg tablet Take 2 tablets (500 mg total) by mouth 1 (one) time each day for 1 day, THEN 1 tablet (250 mg total) 1 (one) time each day for 4 days. 6 each 12/06/19 25 025 Hospital, Clinic, or Other Facility Administered Medication Ordered Dose Route Frequency Start Date End Date Status albuterol 2.5 mg /3 mL (0.083 %) nebulizer solution 2.5 mgIndications:COPD exacerbation ([facility] V24, [facility] V28) 2.5 mg nebu Every 6 hours PRN 07/20/2024 Activ e lidocaine (XYLOCAINE) 1 % injection 4 mLIndications:Arthri tis of left hip 4 mL Once PRN Procedure 11/17/2024 11/17/2024 Ended triamcinolone acetonide (KENALOG-40) 40 mg/mL injection 40 mgIndications:Arthri tis of left hip 40 mg Once PRN Procedure 11/17/2024 11/17/2024 Ended Active Problems Problem Noted Date Diagnosed Date Abdominal pain 07/28/2024 History of substance abuse ([facility] V24, [facility] V28) 07/28/2024 Tobacco dependence syndrome 07/28/2024 COPD exacerbation ([facility] V24, [facility] V28) 01/2025 Medial epicondylitis of elbow, right 01/25/2023 Calcification of left hand joint 10/07/2022 Left carpal tunnel syndrome 10/07/2022 Medial epicondylitis of elbow, left 10/07/2022 Stage 2 moderate COPD by GOL D classification ([facility] V24, [facility] V28) 12/17/2021 Overview (11/26/2023): Last Assessment & [...] 11/23/2018 History of cholecystectomy 10/22/2016 Opiate dependence ([facility] V24, [facility] V28) Anxiety 03/29/2015 Asthma 03/29/2015 Eczema 06/02/2011 Encounters Date Type Department Care Team Description 12/08/2024 11:26 AM EDT - 12/08/2024 11:59 PM EDT Hospital Encounter Radiology Department - [address] [phone] Radiculopathy, lumbar region; Spondylosis, unspecified Discharge Disposition: Home or Self Care 12/05/2024 10:50 AM EDT Office Visit Gastroenterology [facility] [address] [phone] Kacey Christianson PA Gastroesophageal reflux disease with esophagitis without hemorrhage (Primary Dx); COPD exacerbation ([facility] V24, [facility] V28); Tubular adenoma of colon 12/05/2024 Telephone Gastroenterology [facility] [address] [phone] Kacey Christianson PA 12/04/2024 [facility] [address] [facility] [place] [phone] Eric Sawyer MD 11/17/2024 10:10 AM EDT Ancillary Procedure Orthopedic Surgery - [place] [address] [facility] [address] [place] [phone] 11/17/2024 10:00 AM EDT Procedure visit Orthopedic Surgery - [place] [address] [facility] [address] [place] [phone] Rachel Garcia MD Arthritis of left hip (Primary Dx) 10/30/2024 Telephone Pulmonology - [place] 175 [facility] [address] [place] [phone] Luciana Ivey MD 10/19/2024 9:30 AM EDT Consult Orthopedic Surgery - [place] [address] [facility] [address] [place] [phone] Rachel Garcia MD Lumbar radiculopathy (Primary Dx); Arthritis of left hip 10/18/2024 2:24 PM EDT - 10/18/2024 11:59 PM EDT Hospital Encounter Xray - [place] [address] [place] [phone] COPD exacerbation (CMS/HCC V24, CMS/HCC V28) Discharge Disposition: Home or Self Care 10/18/2024 2:00 PM EDT Office Visit Internal Medicine - [facility] [address] [place] [address] Eric Sawyer MD Adult general medical examination (Primary Dx); COPD exacerbation (CMS/HCC V24, CMS/HCC V28); Immunization due; Screening for deficiency anemia; Screening for hyperlipidemia; Screening for diabetes mellitus; Screening for thyroid disorder; Leg cramping 09/20/2024 8:32 AM EDT Anesthesia Event [facility] [address] [place] [address] Randy Vela MD 09/20/2024 6:56 AM EDT - 09/20/2024 11:59 PM EDT Hospital Encounter [facility] [address] [place] [phone] Wes Romo MD Steele, Matthew G, CRNA Esophageal stenosis Discharge Disposition: Home or Self Care 09/18/2024 Telephone Internal Medicine - [facility] [address] [place] [address] Eric Sawyer MD from Last 3 Months Immunizations Immunization Administration Dates Next Due Influenza Quadravalent, MDCK [...] History Date Comments Pancreatitis COPD (chronic obstructive pu lmonary disease) (CMS/HCC V24, CMS/HCC V28) stage 3 GERD (gastroesophageal reflux disease) Anxiety Asthma Bile reflux gastritis Calcification of left hand joint Left carpal tunnel syndrome Medial epicondylitis of left elbow Epicondylitis elbow, medial, right Hyperlipidemia Precordial pain Lung disease Low back strain Cervical disc disorder Tennis elbow 07-26-22 Arthritis Family History Medical History Relation Name Comments [...] got money to buy more. Sometimes true 07/16/2 025 Within the past 12 months th e food we bought just didn't last and we didn't have money to get more. Never true 08/23/2024 Dependent Care Answer Date Recorded Do you need help finding or paying for care for your loved ones. For example, child development specialist or elderly care for an older adult? [...] Date Recorded What is your living situation? Unrecognized valu e 08/23/2024 Interpersonal Safety Answer Date Record ed Physical Abuse Unrecognized value 09/20/2024 Verbal Abuse Unrecognized value 09/20/2024 Comments No Sex and Gender Information Value Date Recorded Sex Assigned at Female 05/29/2024 5:15 PM EDT Legal Sex Female 2:37 AM EST Gender Identity Female 05/29/2024 5:15 PM EDT Sexual Orientation Choose not to disclose 2024 5:15 PM EDT Obstetrics History Last Filed Vital Signs Vital Sign Reading Time Taken Comments Blood Pressure 134/96 12/05/2024 11:06 AM EDT Pulse 76 12/05/2024 11:06 AM EDT Temperature 36.7 C (98 F) 09/20/2024 8:46 AM EDT Respiratory Rate 18 09/20/2024 9:06 AM EDT Oxygen Saturation 94% 12/05/2024 11:06 AM EDT Inhaled Oxygen Concentration - - Weight 55.4 kg (122 lb 3.2 oz) 12/05/2024 11:06 AM EDT Height 160 cm (5' 3 ) 12/05/2024 11:06 AM EDT Body Mass Index 21.65 12/05/2024 11:06 AM EDT Plan of Treatment Upcoming Encounters Date Type Department Care Team (Late st Contact Info) Description 02/23/2025 11:00 AM EST Consult Vascular Surgery - [place] [address] [place] [address] Julia Heck PA [address] [place] [phone] 07/12/2025 10:50 AM EDT Office Visit Gastroenterology - [address] [facility] [address] [place] [phone] Kacey Christianson PA [address] [facility] [address] [place] [address] Health Maintenance Due Date Last Done Comments Hepatitis A Vaccines (1 of 2 - Risk 2-dose series) 1985 Hepatitis B Vaccines (1 of 3 - 19+ 3-dose series) 1985 Cervical Cancer Screening: Pap Smear 08/14/1987 RSV Immunization Adult Patients (1 - Risk 50-74 years 1-dose series) 2016 Zoster Vaccines (1 of 2) 2016 HIV Screening 01/17/2022 Hepatitis C Screening 01/17/2022 Medicare Annual Wellness Visit 01/17/2022 Breast Cancer Screening 05/09/2023 05/09/19 22, 01/16/2020, 07/23/2017 Pneumococcal Vaccine: 50+ Years (3 of 3 - PCV20 or PCV21) 02/11/2024 02/10/2019, 11/11/2015, 06/02/2011 COVID-19 Vaccine (4 - 2024- season) 2024 03/01/2021, 05/29/2020, 05/06/2020 Influenza Vaccine (#1) 2024 , 10/31/2020, 11/03/2016, Additional history exists Social Influencers of Health Screening 08/23/2025 08/23/2024 Colorectal Cancer Screening: Colonoscopy 11/07/2025 11/08/2023 Cholesterol Screening (Lipid Panel) 10/18/2029 10/18/2024, 12/02/2020 DTaP,Tdap,and Td Vaccines (3 - Td or Tdap) 10/18/2034 10/18/2024, 01/13/2014 Depression Screening Completed 08/23/2024 HIB Vaccines Aged [...] Procedure Name Priority Date/Time Associated Diagnosis Comments MR LUMBAR SPINE WO CONTRAST Routine 12/08/2024 12:17 PM EDT Radiculopathy, lumbar region Spondylosis, unspecified US ARTHROCENTESIS ASP INJ JOINT MAJOR RIGHT Routine 11/17/2024 10:08 AM EDT Arthritis of left hip CA ARTHROCENTESIS/ASPIRAT ION/INJECTION MAJOR JOINT/BURSA W/O U/S GUIDANCE Routine 11/17/2024 10:00 AM EDT Arthritis of left hip EXTERNAL CLINICAL LAB 11/06/2024 LIPID PANEL WITH REFLEX TO DIRECT LDL [...] Routine 09/20/2024 8:45 AM EDT Esophageal stenosis HM COLONOSCOPY Routine 11/08/2023 SCREENING MAMMOGRAPHY BI 2-VIEW BREAST INC CAD Routine 05/08/2021 1:42 PM EDT Encounter for screening mammogram for malignant neoplasm of breast from Last 3 Months or Most Recently Relevant to Health Maintenance Results * MR Lumbar Spine wo Contrast (12/08/2024 12:17 PM EDT) Anatomical Region Laterality Modality L-spine, Spine Magnetic Resonan ce 12/08/2024 3:52 PM EDT Impressions 12/08/2024 4:23 PM EDT Multilevel bony and discogenic degenerative changes as described. Compression of the right L4 nerve root. Compression of the L5 nerve roots bilaterally. Mild central spinal canal stenosis at L4-5. -------- FINAL REPORT -------- Dictated By: Angelique Vila Dictated Date: 12/08/2024 15:52 ET Assigned Physician: Angelique Vila Reviewed and Electronically Signed By: Angelique Vila Signed Date: 12/08/2024 16:23 ET Workstation ID: [id number] Transcribed By: Self Edit Transcribed Date: 12/08/2024 15:52 ET Narrative 12/08/2024 4:23 PM EDT MR LUMBAR SPINE WO CONTRAST MR OF THE LUMBAR SPINE WITHOUT CONTRAST HISTORY: Lumbar radiculitis bilateral lower extremities. Technique: MR of the lumber spine was performed without contrast utilizing the standard departmental protocol. COMPARISON: Lumbar spine 08/24/2024. FINDINGS: Conus medullaris terminates at the [upper L2] level, and demonstrates normal signal. There is no abnormal thickening or clumping of the cauda equina nerve roots. There is straightening of the normal lordotic curve. Vertebral body heights are normal. Marrow signal is normal. There is disc desiccation at L2-3, L3-4, L4-5, and L5-S1. At T12-L1, no significant disc herniation, central spinal canal stenosis or neuroforaminal narrowing is demonstrated on the sagittal sequences. At L1-L2, no significant disc herniation, central spinal canal stenosis or neuroforaminal narrowing. At L2-L3, there is disc desiccation and disc bulging. There is no significant disc herniation, central spinal canal stenosis or neuroforaminal narrowing. At L3-L4, there is disc desiccation and disc space narrowing. There is disc bulging with tear of the annulus, mild bilateral neuroforaminal narrowing, and ligamentous bulging. No central canal stenosis. At L4-L5, there is disc desiccation disc desiccation, disc bulging with bilateral lateral disc bulging and central/right paracentral disc bulging, ligamentous bulging and mild facet arthropathy. There is moderate right neural foraminal narrowing with compression of the exiting right L4 nerve root. There is right lateral recess stenosis with posterior displacement of the right L4 nerve root. There is mild central spinal canal stenosis. At L5-S1, there is disc desiccation and disc space narrowing. There is 4 mm retrolisthesis of L5 on S1. There is disc bulging and osteophytic endplate spurring. There is small central disc herniation extending slightly caudad from the disc space. There is severe bilateral neural foraminal compression of the L5 nerve roots bilaterally. No central spinal canal stenosis. There is a 0.7 x 0.7 cm CSF signal structure in the canal at the S2 level, representing a perineural cyst. Procedure Note Angelique Vila MD - 12/08/2024 MR LUMBAR SPINE WO CONTRAST MR OF THE LUMBAR SPINE WITHOUT CONTRAST HISTORY: Lumbar radiculitis bilateral lower extremities. Technique: MR of the lumber spine was performed without contrast utilizingthe standard departmental protocol. COMPARISON: Lumbar spine 08/24/2024. FINDINGS: Conus medullaris terminates at the [upper L2] level, anddemonstrates normal signal. There is no abnormal thickening or clumping ofthe cauda equina nerve roots. There is straightening of the normallordotic curve. Vertebral body heights are normal. Marrow signal isnormal. There is disc desiccation at L2-3, L3-4, L4-5, and L5-S1. At T12-L1, no significant disc herniation, central spinal canal stenosisor neuroforaminal narrowing is demonstrated on the sagittal sequences. At L1-L2, no significant disc herniation, central spinal canal stenosis orneuroforaminal narrowing. At L2-L3, there is disc desiccation and disc bulging. There is nosignificant disc herniation, central spinal canal stenosis orneuroforaminal narrowing. At L3-L4, there is disc desiccation and disc space narrowing. There isdisc bulging with tear of the annulus, mild bilateral neuroforaminalnarrowing, and ligamentous bulging. No central canal stenosis. At L4-L5, there is disc desiccation disc desiccation, disc bulging withbilateral lateral disc bulging and central/right paracentral disc bulging,ligamentous bulging and mild facet arthropathy. There is moderate rightneural foraminal narrowing with compression of the exiting right L4 nerveroot. There is right lateral recess stenosis with posterior displacementof the right L4 nerve root. There is mild central spinal canal stenosis. At L5-S1, there is disc desiccation and disc space narrowing. There is 4mm retrolisthesis of L5 on S1. There is disc bulging and osteophyticendplate spurring. There is small central disc herniation extendingslightly caudad from the disc space. There is severe bilateral neuralforaminal compression of the L5 nerve roots bilaterally. No central spinalcanal stenosis. There is a 0.7 x 0.7 cm CSF signal structure in the canal at the S2 level,representing a perineural cyst. IMPRESSION: Multilevel bony and discogenic degenerative changes as described.Compression of the right L4 nerve root. Compression of the L5 nerve rootsbilaterally. Mild central spinal canal stenosis at L4-5. -------- FINAL REPORT -------- Dictated By: Angelique Vila Dictated Date: 12/08/2024 15:52 ET Assigned Physician: Angelique Vila Reviewed and Electronically Signed By: Angelique Vila Signed Date: 12/08/2024 16:23 ET Workstation ID: [id number] Transcribed By: Self Edit Transcribed Date: 12/08/2024 15:52 ET us Severo MCCOY IMG MRI PROCEDURES Final Resul t * US Arthrocentesis Asp Inj Joint Major Right (11/17/2024 10:08 AM EDT) Anatomical Region Laterality Modality Extremity Right Ultrasound Narrative 11/17/2024 10:27 AM EDT PROCEDURE: Left Hip Injection Note. The risks of the injection were discussed including: infection, neurovascular injury, steroid flare, fat atrophy, inflammatory response. The patient understood the risks and gave verbal consent. The patient was positioned supine with the anterior hip exposed. The area was prepped in a sterile fashion with Chloro-Prep. Vascular structures were identified using ultrasound power Doppler. Lidocaine 4ml was injected locally then slowly advanced using a 22g 3.5 spinal needle infiltrating to the femoral head-neck junction under ultrasound guidance. A small amount of anesthetic was injected into the capsule. Kenalog 40 mg and lidocaine 3 cc was injected into the hip joint without difficulty. The hip capsule was observed filling with the injection. Images were recorded and will permanently stored in patients medical record. The patient tolerated the procedure well. There were no complications. Aftercare was thoroughly discussed. Images were taken and are permanently stored and retrievable. us Rachel Garcia MD IMG US PROCEDURES Final Result * CA ARTHROCENTESIS/ASPIRATION/INJECTION MAJOR JOINT/BURSA W/O U/S GUIDANCE (11/17/2024 10:00 AM EDT) Narrative Rachel Garcia MD - 11/17/2024 10:00 AM EDT Rachel Garcia MD 11/17/2024 10:27 AM L Inj/Asp: L hip joint Indications: pain Details: 22 G needle, anterior approach (guidance: US guided ) Medications: 4 mL lidocaine 1 %; 40 mg triamcinolone acetonide 40 mg/mL Outcome: tolerated well, no immediate complications Informed Consent: Laterality: Left Relevant images/test results available and reviewed: yes Health status cleared: Yes Procedure/treatment, purpose, treatment alternatives, risks/potential complications and benefits explained: yes Risk/complications/benefits details: Risks include bleeding, infection, increasing pain Patient questions answered: yes Patient agrees, verbalizes understanding, and wants to proceed: yes Consent given by: Patient Informed consent discussion completed by Physician/ELSIE with patient: Verbal Pre-procedure timeout performed: yes us Rachel Garcia MD IN CLINIC/BEDSIDE ORDERABLES F inal Result * External clinical lab (11/06/2024) us Provider [facility] LAB BLOOD ORDERABLES Fin al Result * Thyroid stimulating hormone with reflex to free t4 and free t3 (10/18/2024 2:41 PM EDT) TSH 0.77 0.40 - 4.00 mcIU/mL LAB CHEMISTRY METHOD 10/18/2024 8:38 PM EDT [facility] Blood Venous blood specimen / Unknown Venipuncture / Unknown 10/18/2024 2:41 PM EDT 10/18/2024 2:41 PM EDT us Eric Sawyer MD LAB BLOOD ORDERABLES Final Res ult [facility] [address] [place] [address], [place] [phone] * (ABNORMAL) Lipid panel with reflex to direct LDL (10/18/2024 2:41 PM EDT) Cholesterol 226(H) 0 - 200 mg/dL LAB CHEMISTRY METHOD 10/18/2024 7:57 PM EDT [facility] Triglycerides 415(H) 0 - 150 mg/dL LAB CHEMISTRY METHOD 10/18/2024 7:57 PM EDT [facility] HDL 58 >=40 mg/dL LAB CHEMISTRY METHOD 10/18/2024 7:57 PM T [facility] LDL Calculated 85 0 - 100 mg/dL LAB CHEMISTRY METHOD 10/18/2024 7:57 PM T [facility] Comment: Unable to calculate when triglycerides >400 mg/dL. Estimated LDL Calculated using equation: Total cholesterol - HDL cholesterol - (Triglycerides/5) VLDL Cholesterol Moe 83 mg/dL LAB CHEMISTRY METHOD 10/18/2024 7:57 PM EDT [facility] Comment:Unable to calculate when triglycerides >400 mg/dL. Non HDL Chol. (LDL+VLDL) 168(H) <145 mg/dL LAB CHEMISTRY METHOD 10/18/2024 7:57 PM EDT [facility] Comment:Unable to calculate when triglycerides >400 mg/dL. Chol/HDL Ratio 3.9 0.0 - 4.4 LAB CHEMISTRY METHOD 10/18/2024 7:57 PM EDT [facility] Blood Venous blood specimen / Unknown Venipuncture / Unknown 10/18/2024 2:41 PM EDT 10/18/2024 2:41 PM EDT us Eric Sawyer MD LAB BLOOD ORDERABLES Final Res ult [facility] [address] [place] [address], * Complete blood count (10/18/2024 2:41 PM EDT) WBC 9.7 4.8 - 10.8 K/mcL LAB HEMETOLOGY METHOD 10/18/2024 7:07 PM EDT [facility] RBC 4.40 3.80 - 4.80 M/[facility] LAB HEMETOLOGY METHOD 10/18/2024 7:07 PM EDT [facility] Hemoglobin 14.1 11.5 - 16.0 g/dL LAB HEMETOLOGY METHOD 10/18/2024 7:07 PM EDT [facility] Hematocrit 43.2 35.0 - 47.0 % LAB HEMETOLOGY METHOD 10/18/2024 7:07 PM EDT [facility] MCV 97.5 79.0 - 98.0 FL LAB HEMETOLOGY METHOD 10/18/2024 7:07 PM EDT [facility] MCH 31.8 27.0 - 32.0 pcg LAB HEMETOLOGY METHOD 10/18/2024 7:07 PM EDT [facility] MCHC 32.6 32.0 - 37.0 g/dL LAB HEMETOLOGY [facility] RDW 13.2 11.0 - 15.0 % LAB HEMETOLOGY METHOD 10/18/2024 7:07 PM EDT [facility] Platelets 343 130 - 400 K/mcL LAB HEMETOLOGY METHOD 10/18/2024 7:07 PM EDT [facility] MPV 9.1 7.0 - 11.0 FL LAB HEMETOLOGY METHOD 10/18/2024 7:07 PM EDT [facility] NRBC 0.0 <1.0 % LAB HEMETOLOGY METHOD 10/18/2024 7:07 PM EDT [facility] NRBC Absolute 0.00 <0.10 K/mcL LAB HEMETOLOGY METHOD 10/18/2024 7:07 PM EDT [facility] Blood Venous blood specimen / Unknown Venipuncture / Unknown 10/18/2024 2:41 PM EDT 10/18/2024 2:41 PM EDT us Eric Sawyer MD LAB BLOOD ORDERABLES Final Res ult [facility] [address] [place] [address], * (ABNORMAL) Comprehensive metabolic panel (10/18/2024 2:41 PM EDT) Sodium 138 133 - 145 mmol/L LAB CHEMISTRY METHOD [facility] Potassium 4.3 3.5 - 5.5 mmol/L LAB CHEMISTRY METHOD 10/18/2024 7:57 PM [facility] Chloride 104 96 - 110 mmol/L LAB CHEMISTRY METHOD 10/18/2024 7:57 PM [facility] CO2 30 21 - 32 mmol/L LAB CHEMISTRY METHOD 10/18/2024 7:57 PM [facility] Anion Gap 4 3 - 11 LAB CHEMISTRY METHOD 10/18/2024 7:57 PM EDT [facility] Glucose 105(H) 70 - 100 mg/dL LAB CHEMISTRY METHOD 10/18/2024 7:57 PM [facility] BUN 14 5 - 25 mg/dL LAB CHEMISTRY METHOD 10/18/2024 7:57 PM [facility] Creatinine 1.00 0.50 - 1.10 mg/dL LAB CHEMISTRY METHOD 10/18/2024 7:57 PM [facility] eGFR 65 >=60 mL/min/1. 73m2 LAB CHEMISTRY METHOD 10/18/2024 7:57 PM [facility] Comment:Calculation based on the Chronic Kidney Disease Epidemiology Collaboration (CKD-EPI) equation refit without adjustment for race. BUN/Creatinine Ratio 14.0 LAB CHEMISTRY METHOD 10/18/2024 7:57 PM [facility] Calcium 9.3 8.5 - 10.5 mg/dL LAB CHEMISTRY METHOD 10/18/2024 7:57 PM [facility] AST (SGOT) 19 10 - 42 unit/L LAB CHEMISTRY METHOD 10/18/2024 7:57 PM [facility] ALT (SGPT) 32 10 - 60 unit/L LAB CHEMISTRY METHOD 10/18/2024 7:57 PM [facility] Alkaline Phosphatase 61 42 - 121 unit/L LAB CHEMISTRY METHOD 10/18/2024 7:57 PM [facility] Total Protein 6.1 6.0 - 8.0 g/dL LAB CHEMISTRY METHOD 10/18/2024 7:57 PM [facility] Albumin 3.8 3.2 - 5.0 g/dL LAB CHEMISTRY METHOD 10/18/2024 7:57 PM [facility] Total Bilirubin 0.3 0.0 - 1.4 mg/dL LAB CHEMISTRY METHOD 10/18/2024 7:57 PM [facility] Blood Venous blood specimen / Unknown Venipuncture / Unknown 10/18/2024 2:41 PM EDT 10/18/2024 2:41 PM EDT us Eric Sawyer MD LAB BLOOD ORDERABLES Final Res ult [facility] [address] [place] [address], [place] [phone] * XR Chest 2 Views (10/18/2024 2:29 PM EDT) Anatomical Region Laterality Modality Body Radiographic Tracy ging 10/18/2024 5:53 PM EDT Impressions 10/18/2024 5:54 PM EDT No acute pulmonary pathology. -------- FINAL REPORT -------- Dictated By: Angelique Vila Dictated Date: 10/18/2024 17:53 ET Assigned Physician: Angelique Vila Reviewed and Electronically Signed By: Angelique Vila Signed Date: 10/18/2024 17:54 ET Workstation ID: [id number] Transcribed By: Self Edit Transcribed Date: 10/18/2024 [...] Signed Date: 10/18/2024 17:54 ET Workstation ID: [id number] Transcribed By: Self Edit Transcribed Date: 10/18/2024 17:53 ET Eric Sawyer MD IMG XR PROCEDURES Final Result * EGD Anesthesia - MAC; [facility] ENDOSCOPY (09/20/2024 8:45 AM EDT) Anatomical Region Laterality Modality Endoscopy 09/20/2024 8:33 AM EDT Impressions 09/20/2024 8:47 AM EDT - Normal examined duodenum. - Normal stomach. - No specimens collected. Recommendation: - Discharge patient to home. - Repeat upper endoscopy PRN for retreatment. Narrative 09/20/2024 8:[address] [facility] Patient Name: Marin Gonzalez Procedure Date: 09/20/2024 8:33 AM Date [...] verified by the physician, the nurse, the assistant attorney general and the loss control technician in the pre-procedure area in the [...] 60 Fr. Procedure Code(s): --- Professional --- 07610, Esophagogastroduodenoscopy, flexible, transoral; with insertion of guide wire followed by passage of dilator(s) through esophagus over guide wire Diagnosis Code(s): --- Professional --- R13.10, Dysphagia, unspecified CPT copyright 2020 [employer]. All rights reserved. The codes documented in this report are preliminary and upon aviculturist review may be revised to meet current compliance requirements. Wes Romo MD 09/20/2024 8:47:52 AM This report has been signed electronically.Wes Romo MD Number of Addenda: 0 Note Initiated On: 09/20/2024 8:33 AM Scope In: Scope Out: Endoscopy Department at [facility] - [address] [place] [id number] Procedure Note Wes Romo MD - 09/20/2024 [facility] Patient Name: Marin Gonzalez Procedure Date: 09/20/2024 8:33 AM Date [...] the physician, the nurse, theanesthetist and the loss control technician in the pre-procedure area in the [...] 60 Fr. Procedure Code(s): --- Professional --- 43694, Esophagogastroduodenoscopy, flexible, transoral; with insertion of guide wire followed by passage of dilator(s) through esophagus over guidewire Diagnosis Code(s): --- Professional --- R13.10, Dysphagia, unspecified CPT copyright 2020 [employer]. All rights reserved. The codes documented in this report are preliminary and upon aviculturist reviewmay be revised to meet current compliance requirements. Wes Romo MD 09/20/2024 8:47:52 AM This report has been signed electronically.Wes Romo MD Number of Addenda: 0 Note Initiated On: 09/20/2024 8:33 AM Scope In: Scope Out: Endoscopy Department at [facility] - [address] [place] [phone] IMPRESSION: - Normal examined duodenum. - Normal stomach. - No specimens collected. Recommendation: - Discharge patient to home. - Repeat upper endoscopy PRN for retreatment. 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
[2024-12-16 12:09] VITALS: BP 140/80; PULSE 91; TEMP 37.3; O2SAT 95
--- NOTE | 2024-12-16 12:09 | MHC.OFFWIV ---
Intake Vital Signs 12/16/24 12:09 Height 5 ft 3.5 in BMI Reason not done Patient refused/unable BP 140/80 H Blood Pressure Location Lt brachial Position Sitting Pulse 91 Pulse Source Pulse Oximeter Temp 99.1 F Temp Source Oral Pulse Oximetry (%) 95 Oxygen Delivery Method Room Air Intake Visit Reasons: EP-sob, wheezing Patient Tobacco Use Status: Current everyday Tobacco user Allergies buprenorphine (From SUBOXONE) Allergy (Severe, Verified 12/16/24 12:11) ANAPHYLAXIS naloxone (From SUBOXONE) Allergy (Severe, Verified 12/16/24 12:11) ANAPHYLAXIS NSAIDS (Non-Steroidal Anti-Inflamma (Nsaids) Allergy (Unknown, Verified 12/16/24 12:11) RASH, ITCHING Do you need a note to return to daycare/school/sports/work: No HPI HPI Comments History of Present Illness Details This is a 59-year-old female with PMHx: COPD who presented to the walk-in clinic complaining of shortness of breath, wheezing, and cough x 2 days. She is coughing up some sputum, which is clear to yellow-rachel. She denies any hemoptysis. She denies any fevers/chills. She reports some mild nasal/sinus congestion and rhinorrhea. She reports still smoking but has cut down significantly. She reports anterior chest tightness but denies any chest pain. The chest tightness does not radiate into either arm. She reports exacerbation of the shortness of breath with exertion. At baseline, she does not have any cough or shortness of breath. She denies any recent travel or surgeries. She denies any recent immobilization. She denies any lower extremity edema. She has been using her rescue inhaler and nebulizer, which offers short-term relief but her symptoms quickly return. [facility] Medical History (Updated 12/16/24 @ 14:56 by DARIUS Montesinos) COPD with acute exacerbation Cough Wheezing on auscultation Social History Patient Tobacco Use Status: Current everyday Tobacco user Review of Systems Const All systems reviewed & are unremarkable except as noted in HPI and below Reports no additional complaints Eyes Reports no additional complaints ENT Reports no additional complaints Card Reports no additional complaints Resp Reports no additional complaints GI Reports no additional complaints Reports no additional complaints Musc Reports no additional complaints Skin/Breast Reports system reviewed and no additional complaints, except as documented Neuro Reports no additional complaints Psych Reports no additional complaints Endo Reports no additional complaints Claus/Lymph Reports no additional complaints Aller/Immun Reports no additional complaints Physical Exam Exam Exam: Vital signs reviewed. Constitutional: Non-toxic appearing. No acute distress. Well-developed and well-nourished. HEENT: Normocephalic and atraumatic. PERRL/EOMI. Skin: Warm and dry. No rashes or lesions noted. Neck: Full and painless range of motion. No cervical lymphadenopathy. Cardio: Regular rate and rhythm. No murmurs, gallops, or rubs. No lower extremity edema. No JVD. Pulmonary: No respiratory distress. No accessory muscle usage. She has scattered wheezing and rhonchorous breath sounds throughout both lungs. Gastrointestinal: Soft, nontender, and nondistended in all 4 quadrants. Musculoskeletal: Normal range of motion in joints throughout the body. No deformity or other signs of injury. Neuro: Alert and oriented x4. Cranial nerves 2-12 grossly intact. No focal deficits appreciated. Psych: Normal mood and affect. Vital Signs: Last Vital Signs Temp 99.1 F 12/16/24 12:09 Pulse 91 12/16/24 12:09 BP 140/80 H 12/16/24 12:09 Pulse Ox 95 12/16/24 12:09 Oxygen Delivery Method Room Air 12/16/24 12:09 Assessment & Plan Assessment & Plan (1) COPD exacerbation: Code(s): J44.1 - Chronic obstructive pulmonary disease with (acute) exacerbation Plan 59-year-old female with PMHx: COPD who presented to the walk-in clinic complaining of shortness of breath, wheezing, and cough x 2 days. On physical examination, patient has wheezing and rhonchorous breath sounds throughout both lungs. History and physical most consistent with an acute COPD exacerbation likely in the setting of viral URI versus weather changes. Patient was given a prescription for p.o. prednisone 40 mg daily x5 days as well as p.o. azithromycin 500 mg today followed by 250 mg daily x4 days given increased sputum production and increased sputum purulence. Patient was advised to proceed to the emergency room if she were to develop worsening shortness of breath, hemoptysis, or worsening sputum production/purulence. Patient verbalized understanding and she is in agreement with the plan. Medications: New azithromycin For 250 mg dose pack: take 500 mg today (day 1), then 250 mg for 4 days (days 2-5) PO 6 tabs 0RF prednisone 40 mg (2 x 20 mg) PO DAILY 10 tabs 0RF Coding Level of Care Code Est Pt Level 3 (94444) Diagnoses COPD exacerbation J44.1
== END 2024-12-16 13:03 | disposition home or self-care (01) ==
LOC: HO.HMCWIC 11:03
PROVIDERS: PCP Internal Medicine; Visit Provider Physician Assistant Medical
DX: J44.1 Chronic obstructive pulmonary disease with (acute) exacerbation (principal)

== ENCOUNTER → 2024-12-16 11:03 | Outpatient (BNVA) | payer OTHER, SELFPAY | PROVIDERS: PCP Internal Medicine; Visit Provider Physician Assistant Medical | DX: J44.1 Chronic obstructive pulmonary disease with (acute) exacerbation (principal); F17.200 Nicotine dependence, unspecified, uncomplicated; Z79.51 Long term (current) use of inhaled steroids | CPT/HCPCS: 99212 ==